=== PATIENT | male | born 1945 | race Caucasian/White ===

== ENCOUNTER 2020-08-30 08:16 | Outpatient (REF) | payer MEDICARE, SELFPAY ==
[2020-08-30 09:15] LABS: Basophils Percent Auto 0.2 % (0-2); Imm Gran Abs Auto 0.03 X10*3/uL (0.00-0.03); Imm Gran Pct Auto 0.5 % (0.0-0.4); MANUAL DIFF FLAG SCAN; Mean Corpuscular Volume 93.5 fL (80-98); Neutrophils Absolute Auto 3.7 X10*3/uL (2.0-8.3); PLT CLUMP 1; SCAN SMEAR FLAG 1
[2020-08-30 09:16] LABS: Eosinophils Absolute Auto 0.1 X10*3/uL (0.0-0.4); Eosinophils Percent Auto 2.3 % (0-4); Hematocrit 37.4 % (42-52); Hemoglobin 12.2 g/dl (14.0-18.0); Lymphocytes Absolute Auto 1.2 X10*3/uL (1.2-4.9); Mean Corpuscular HGB Conc 32.6 g/dl (31.0-36.0); Mean Corpuscular Hemoglobin 30.5 pg (27.0-33.0); Mean Platelet Volume 9.6 fL (9.4-12.4); Monocytes Absolute Auto 0.5 X10*3/uL (0.1-1.2); Monocytes Percent Auto 8.7 % (2-11); Neutrophils Percent Auto 66.3 % (45-73); Platelet Count 133 X10*3/uL (160-400); Red Cell Distribution Width 12.8 % (11.0-16.0); White Blood Count 5.6 X10*3/uL (4.8-10.8)
[2020-08-30 09:17] LABS: Estimated Average Glucose 126 mg/dL
[2020-08-30 09:27] LABS: Alanine Aminotransferase 60 U/L (0-40); Albumin Level 4.1 g/dL (3.5-5.0); Alkaline Phosphatase 205 U/L (39-117); Anion Gap 16 (12-20); Aspartate Amino Transferase 37 U/L (5-37); Bilirubin Total 0.6 mg/dL (0.0-1.0); Blood Urea Nitrogen 14 mg/dL (9-16); Calcium 9.3 mg/dL (8.4-10.2); Carbon Dioxide 22 mmol/L (22-29); Chloride 105 mmol/L (96-108); Cholesterol 125 mg/dL; Estimated Glomerular Filt Rate > 60; Glucose Fasting 209 mg/dL (60-99); HDL Cholesterol 31 mg/dL; LDL Cholesterol Calculated 61 mg/dl; Potassium 4.5 mmol/L (3.3-5.1); Sodium 138 mmol/L (135-145); Total Protein 7.1 g/dL (6.5-8.0); Triglycerides 166 mg/dL
[2020-08-30 09:48] LABS: Thyroid Stimulating Hormone 2.02 uIU/mL (0.32-4.0)
[2020-08-30 10:36] LABS: Creatinine Urine 120.12 mg/dL; Microalbum/Creatinine Ratio Ur 103.2 ug/mg cr
== END 2020-08-30 08:17 | disposition home or self-care (01) ==
LOC: HO.LAB 08:16
PROVIDERS: PCP Internal Medicine; Visit Provider Internal Medicine
DX: Z00.00 Encounter for general adult medical examination without abnormal findings (principal); E11.9 Type 2 diabetes mellitus without complications; E03.9 Hypothyroidism, unspecified
CPT/HCPCS: 36415; 80053; 80061; 82043; 83036; 84443; 85025

== ENCOUNTER 2020-10-26 07:42 | Outpatient (REF) | payer MEDICARE, SELFPAY ==
--- NOTE | ~2020-10-26 | XR_ITS ---
EXAMINATION: XR KNEES, STANDING AP XR KNEE, RIGHT XR KNEE, LEFT CLINICAL INFORMATION: Bilateral knee pain COMPARISON: Radiographs bilateral knees including standing AP knee 01/24/2017. TECHNIQUE: Standing AP view of both knees is performed. The right knee is imaged in lateral and axial patella views. The left knee is imaged in lateral view. FINDINGS: Right: There is no fracture, dislocation, destructive process. Tricompartment osteoarthritis is present, greatest medial knee joint compartment with joint narrowing, osteophytes, and secondary genu varus. There is borderline suprapatellar fluid. No significant effusion. There is no erosive change or chondrocalcinosis. Hoffa's fat pad appears normal. There is spurring at the quadriceps insertion patella. Extensive vascular atherosclerotic calcifications are present. Left: There has been prior total knee arthroplasty. The hardware appears intact. There is no fracture, dislocation, or destructive process. There is moderate suprapatellar effusion. Hoffa's fat pad appears normal. Spurring is present at the quadriceps insertion patella. There are extensive vascular atherosclerotic calcifications. 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 No erosive change. Left: Total knee arthroplasty. Hardware intact. Moderate effusion. No destructive process. Bilateral: Spurring at quadriceps insertion on the lateral patella. Bilateral atherosclerotic calcifications vasculature.
--- NOTE | ~2020-10-26 | XR_ITS ---
EXAMINATION: XR KNEES, STANDING AP XR KNEE, RIGHT XR KNEE, LEFT CLINICAL INFORMATION: Bilateral knee pain COMPARISON: Radiographs bilateral knees including standing AP knee 01/24/2017. TECHNIQUE: Standing AP view of both knees is performed. The right knee is imaged in lateral and axial patella views. The left knee is imaged in lateral view. FINDINGS: Right: There is no fracture, dislocation, destructive process. Tricompartment osteoarthritis is present, greatest medial knee joint compartment with joint narrowing, osteophytes, and secondary genu varus. There is borderline suprapatellar fluid. No significant effusion. There is no erosive change or chondrocalcinosis. Hoffa's fat pad appears normal. There is spurring at the quadriceps insertion patella. Extensive vascular atherosclerotic calcifications are present. Left: There has been prior total knee arthroplasty. The hardware appears intact. There is no fracture, dislocation, or destructive process. There is moderate suprapatellar effusion. Hoffa's fat pad appears normal. Spurring is present at the quadriceps insertion patella. There are extensive vascular atherosclerotic calcifications. 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 No erosive change. Left: Total knee arthroplasty. Hardware intact. Moderate effusion. No destructive process. Bilateral: Spurring at quadriceps insertion on the lateral patella. Bilateral atherosclerotic calcifications vasculature.
--- NOTE | ~2020-10-26 | XR_ITS ---
EXAMINATION: XR KNEES, STANDING AP XR KNEE, RIGHT XR KNEE, LEFT CLINICAL INFORMATION: Bilateral knee pain COMPARISON: Radiographs bilateral knees including standing AP knee 01/24/2017. TECHNIQUE: Standing AP view of both knees is performed. The right knee is imaged in lateral and axial patella views. The left knee is imaged in lateral view. FINDINGS: Right: There is no fracture, dislocation, destructive process. Tricompartment osteoarthritis is present, greatest medial knee joint compartment with joint narrowing, osteophytes, and secondary genu varus. There is borderline suprapatellar fluid. No significant effusion. There is no erosive change or chondrocalcinosis. Hoffa's fat pad appears normal. There is spurring at the quadriceps insertion patella. Extensive vascular atherosclerotic calcifications are present. Left: There has been prior total knee arthroplasty. The hardware appears intact. There is no fracture, dislocation, or destructive process. There is moderate suprapatellar effusion. Hoffa's fat pad appears normal. Spurring is present at the quadriceps insertion patella. There are extensive vascular atherosclerotic calcifications. 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 No erosive change. Left: Total knee arthroplasty. Hardware intact. Moderate effusion. No destructive process. Bilateral: Spurring at quadriceps insertion on the lateral patella. Bilateral atherosclerotic calcifications vasculature.
== END 2020-10-26 07:43 | disposition home or self-care (01) ==
LOC: HO.HOSX 07:42
PROVIDERS: Visit Provider Orthopaedic Surgery
DX: M25.562 Pain in left knee (principal); M25.561 Pain in right knee; M17.11 Unilateral primary osteoarthritis, right knee; E11.9 Type 2 diabetes mellitus without complications; C25.9 Malignant neoplasm of pancreas, unspecified; Z88.1 Allergy status to other antibiotic agents; Z96.652 Presence of left artificial knee joint
CPT/HCPCS: 20610; 73560; 73565; 99202; J1040

== ENCOUNTER 2021-11-12 11:56 | Inpatient (IN) | payer MEDICARE, SELFPAY ==
[2021-11-12] VITALS (10 sets, daily range): BP systolic 70–93; BP diastolic 40–55; PULSE 68–92; RESP 18–23; TEMP 36.3; O2SAT 95–100; BMI 16.5
--- NOTE | ~2021-11-12 | XR_ITS ---
EXAMINATION: XR CHEST CLINICAL INFORMATION: Shortness of breath COMPARISON: Previous chest x-rays from earlier the same day TECHNIQUE: Frontal view of the chest was obtained. FINDINGS: The cardiac and mediastinal contours are stable. The lungs are clear. There is no pleural effusion or pneumothorax. There is a right jugular port with tip projecting over the SVC. There are degenerative changes of the spine. XR/XR chest 1V IMPRESSION: No evidence for acute disease in the chest.
--- NOTE | ~2021-11-12 | XR_ITS ---
EXAMINATION: XR CHEST CLINICAL INFORMATION: Weakness and hypotension COMPARISON: None TECHNIQUE: Frontal view of the chest was obtained. FINDINGS: The cardiac and mediastinal contours are normal. The lungs are clear. There is slight blunting of the left lateral costophrenic angle questionable for tiny left pleural effusion or pleural thickening. There is no right pleural effusion. There is no pneumothorax. There is a right jugular port with tip projecting over the SVC. There are degenerative changes of the spine. XR/XR chest 1V IMPRESSION: Blunting of the left lateral costophrenic angle questionable for tiny left pleural effusion or pleural thickening
--- NOTE | ~2021-11-12 | CT_ITS ---
EXAMINATION: CT ABDOMEN AND PELVIS WITH CONTRAST CLINICAL INFORMATION: Question of cholecystitis or choledocholithiasis COMPARISON: MR abdomen 11/10/2019 TECHNIQUE: Multidetector volumetric images were obtained from the superior aspect of the liver through the pubic symphysis following administration 85 mL of Omnipaque 350 intravenous contrast. Sagittal and coronal reformatted images were obtained on the technologist's workstation. Oral contrast: No This CT examination was performed using dose optimization techniques as appropriate, variously including the following: *Automated exposure control *Adjustment of mA and/or kV according to patient size (this includes techniques or standardized protocols for targeted exams where dose is matched to indication/reason for exam; i.e. extremities or head) *Use of iterative reconstruction technique DLP: 475 mGy-cm FINDINGS: LUNG BASES: Small left pleural effusion. Patchy foci of groundglass in the right lung base. ABDOMINAL AND PELVIC WALL: Unremarkable. LIVER AND BILIARY TREE: Severe intrahepatic biliary duct dilatation which appears similar to prior. Common bile duct stent is in place however pneumobilia is not definitively appreciated. Foci of peripheral gas are seen favored to reflect portal venous gas. GALLBLADDER: Status post cholecystectomy. PANCREAS: Amorphous soft tissue is noted in the pancreatic head incompletely characterized on this single phase, contiguous with the lesser curvature of the stomach, which could reflect a primary pancreatic malignancy, measuring at least 4.9 x 4.7 cm in span. Residual pancreatic tail is atrophic. SPLEEN: Multiple wedge-shaped hypodensities compatible with splenic infarcts. ADRENAL GLANDS: Unremarkable. KIDNEYS AND URETERS: Fluid attenuation Bosniak 1 left renal cyst, no imaging follow-up recommended. Bilateral nonobstructing renal stones measuring up to 2 mm. GASTROINTESTINAL TRACT: Fluid is noted in the distal esophagus recommend correlation with symptoms of reflux. Stomach significantly distended, consider correlation with any systemic gastric outlet obstruction particularly given the pancreatic mass. Large colonic stool burden. There is marked pancolonic wall thickening with areas of hypoenhancing bowel in the sigmoid, 3:63, transverse colon, 3:50 raising suspicion for bowel ischemia. Multiple thick-walled loops of small bowel are also seen. VASCULAR: Gastric and periesophageal varices. Advanced atherosclerosis of the abdominal aorta. 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 Severe stenosis of the origin of the inferior mesenteric artery which also appears patent. LYMPH NODES/PERITONEUM: No lymphadenopathy. FREE FLUID: Large volume ascites. Right lower quadrant approach surgical drain. BLADDER: Unremarkable. PELVIC VISCERA: Prostate is enlarged and protrudes into the base of the bladder. OSSEOUS STRUCTURES: Multiple wedge-shaped hypodensities in the spleen suggestive of splenic infarcts, new from prior. CT/CT abdomen pelvis w con IMPRESSION: Gas is noted within the liver favored to reflect portal venous gas. There is pancolonic wall thickening and multiple loops of thickened small bowel with at least 2 areas of hypoenhancing large bowel involving the transverse and sigmoid colon raising suspicious for ischemic bowel. Given there appears to be occlusion of the superior mesenteric vein, with multiple dilated collateral vessels, venous ischemia should be considered. There is severe stenosis of the origin of the superior mesenteric artery and inferior mesenteric artery however appear patent distally. Large volume ascites. Amorphous soft tissue is noted in the pancreatic head incompletely characterized on this single phase, contiguous with the lesser curvature of the stomach, which could reflect a primary pancreatic malignancy, measuring at least 4.9 cm. Severe intrahepatic biliary duct dilatation which appears similar to prior. Common bile duct stent is in place however pneumobilia is not definitively appreciated. Multiple wedge-shaped hypodensities compatible with splenic infarcts. Stomach significantly distended, consider correlation with any systemic gastric outlet obstruction particularly given the pancreatic mass is contiguous with the stomach. 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 Small left pleural effusion. Patchy foci of groundglass in the right lung base adjusting aspiration or infection. The critical results were discussed with Ramírez Farr NP by telephone at 11/12/2021 11:12 PM and it was ascertained that the content and urgency of the report was understood at the time of direct communication.
--- NOTE | 2021-11-12 12:14 | ECG_ITS ---
Test Reason : WEAKNESS Blood Pressure : / mmHG Vent. Rate : 073 BPM Atrial Rate : 073 BPM P-R Int : 170 ms QRS Dur : 086 ms QT Int : 392 ms P-R-T Axes : 083 010 070 degrees QTc Int : 431 ms Normal sinus rhythm Low voltage QRS Cannot rule out Anterior infarct , age undetermined Abnormal ECG No previous ECGs available Referred By: Nora Templeton Electronically Signed By:NIKKO TOMAS
--- NOTE | 2021-11-12 12:29 | ED_ITS ---
HPI - Weakness General Chief complaint: Weakness <Nora TempletonKONRAD - Last Filed: 11/12/21 20:13> Stated complaint: weakness/hypotensive <Nora TempletonKONRAD - Last Filed: 11/12/21 20:13> Time Seen by Provider: 11/12/21 12:13 <Nora TempletonKONRAD - Last Filed: 11/12/21 20:13> Source: patient and family <Nora TempletonKONRAD - Last Filed: 11/12/21 20:13> Mode of arrival: EMS <Nora TempletonKONRAD - Last Filed: 11/12/21 20:13> Limitations: no limitations <Nora TempletonKONRAD - Last Filed: 11/12/21 20:13> History of Present Illness HPI Narrative: Patient presents emergency department for evaluation of weakness, fatigue, and shortness of breath. He reports over the past week he is become progressively more weak. Has had no appetite over the past 3 days, is not eating. He states 1 week ago he was diagnosed with COVID-19, 6 days ago he received a ?COVID infusion from [facility]. States he has been vaccinated and boosted for COVID-19 with [employer]. His daughter Anika Perez is at bedside she reports that she has a healthcare proxy, the patient lives with his son, her brother. She states that he has pancreatic and liver cancer, he was previously receiving chemo/radiation but she pain very frail in sick by her report. States he is currently not receiving any chemo or radiation therapy. S he states that a visiting nurse comes to the house every other day to drain fluid from the abdomen via the drainage port that is in place. <Nora OdenKONRAD hurtado - Last Filed: 11/12/21 20:13> Related Data Home medications: Home Medications Medication Instructions Recorded Confirmed amlodipine 10 mg tablet 10 mg PO DAILY 11/12/21 apixaban 5 mg tablet (Eliquis) 1 tab PO BID 11/12/21 11/12/21 furosemide 40 mg tablet 1 tab PO DAILY 11/12/21 metoprolol succinate 50 mg 1 tab PO DAILY 11/12/21 tablet,extended release 24 hr spironolactone 50 mg tablet 1 tab PO DAILY 11/12/21 11/12/21 Previous Rx's Medication Instructions Recorded metformin 500 mg tablet 500 mg PO BID diabetes #180 tabs 09/22/21 <Nora Templeton CNP - Last Filed: 11/12/21 20:13> Allergies/Adverse reactions: Allergies Allergy/AdvReac Type Severity Reaction Status Date / Time amoxicillin [From AUGMENTIN] Allergy Severe UNKNOWN Verified 09/01/20 11:47 clavulanic acid Allergy Severe UNKNOWN Verified 09/01/20 11:47 [From AUGMENTIN] <Nora Templeton CNP - Last Filed: 11/12/21 20:13> Review of Systems Review of Systems: Constitutional: Positive weight loss. No fever. No chills. Positive weakness. Positive fatigue. Eye: No swelling. No redness. ENT: No sore throat. No rhinorrhea. No nasal congestion. No sore throat. No difficulty swallowing. Skin: No rash. No itching. Cardiovascular: No chest pain. No chest pressure. No palpitations. No pedal edema. Respiratory: Positive shortness of breath. Positive cough. No sputum production. Gastrointestinal: Positive anorexia. No nausea. No vomiting. No diarrhea. No abdominal pain. No blood in stool. Genitourinary: No burning micturition. No urinary frequency. No incontinence. Neurologic: No headache. No dizziness. No pre-syncope/ syncope. No unilateral weakness. No ataxia. No numbness. No tingling. No change in bowel or bladder control. Musculoskeletal: No muscle pain. Positive back pain. No joint pain. No stiffness. Hematologic: No bleeding. No bruising. Lymphatics: No enlarged lymph nodes. Psychiatric:No depression. No anxiety. Endocrine: No polyuria. No polydipsia. <Nora Templeton CNP - Last Filed: 11/12/21 20:13> Yes all other systems are reviewed and are negative <Nora Templeton CNP - Last Filed: 11/12/21 20:13> [facility] Past Medical History Attestation statement: The following information was validated with the patient. <Nora Templeton CNP - Last Filed: 11/12/21 20:13> Source: old records reviewed <Nora Templeton CNP - Last Filed: 11/12/21 20:13> Medical History: Medical History Diabetes Pancreatic cancer <Nora Templeton CNP - Last Filed: 11/12/21 20:13> Surgical History: Surgical History History of left knee replacement <Nora Templeton CNP - Last Filed: 11/12/21 20:13> Family History Family History: Family History Mother No problems noted. <Nora Templeton CNP - Last Filed: 11/12/21 20:13> Social History Social History: Social History Alcohol intake: never Advance Directives: No Advance Directives Information Provided: No <Nora Templeton CNP - Last Filed: 11/12/21 20:13> Physical Exam Vital Signs: Vital Signs: Last Vital Signs Temp 97.4 F 11/12/21 12:03 Pulse 69 11/12/21 18:22 Resp 19 11/12/21 18:22 BP 79/50 L 11/12/21 18:22 Pulse Ox 100 11/12/21 18:22 O2 Del Method 11/12/21 18:22 BMI result Body Mass Index 16.5 Vital signs have been reviewed as normal and appeared to be correct. Hypotensive. Heart rate normal.? Respiration rate normal. Temperature normal.? Oxygen saturation normal. <Nora Templeton CNP - Last Filed: 11/12/21 20:13> Vital Signs: Last Vital Signs Temp 97.4 F 11/12/21 12:03 Pulse 69 11/12/21 18:22 Resp 19 11/12/21 18:22 BP 79/50 L 11/12/21 18:22 Pulse Ox 100 11/12/21 18:22 O2 Del Method 11/12/21 18:22 BMI result Body Mass Index 16.5 <Terry Burt MD - Last Filed: 11/12/21 16:26> Appearance: Alert.?Oriented to person, place and time. Patient is frail and cachectic?Normal affect. Eyes: Pupils equal, round and reactive to light.?EOMi. Scleral icterus ENT: Pharynx normal.?? Neck: Normal inspection.? Neck supple.?? CVS: Heart sounds normal. Normal heart rate and rhythm.? Pulses normal.?? Respiratory: No respiratory distress.? Lung sounds clear to auscultation raad aterally in lower lobes, with rhonchi to the left upper lobe.?? Abdomen: Soft and non-tender. Normoactive bowel sounds. No pulsatile mass.?Right abdomen with percutaneous drain in place. Skin: Skin warm and dry.? Jaundice? Normal skin turgor.?? Extremities: No lower extremity edema.? No calf ttp? Neuro: Moves all extremities spontaneously. Sensation intact bilaterally. CN II- XII intact. No focal neuro deficits. No asterixis <Nora Templeton CNP - Last Filed: 11/12/21 20:13> Course Course Course Narrative: Patient is a 68-year-old male with reported past medical history of diabetes, pancreatic cancer, status post unsuccessful Whipple, portal vein thrombosis, presenting for evaluation weakness and decreased appetite over the past 3 days in addition shortness of breath. He presents via EMS with hypotension 70/40, he is alert and oriented and mentating appropriately, he is very frail and cachectic. No tachycardia fever hypoxia or tachypnea. Patient with recent COVID-19 infection. Will obtain CBC to evaluate for leukocytosis/ anemia, CMP and lipase to evaluate for abnormal electrolytes /abnormal renal function/ abnormal hepatic/biliary function, EKG and troponin to evaluate for ischemia/ACS. Chest x-ray to evaluate for consolidation/ infiltrate/ mass/ pulmonary congestion. Urinalysis to evaluate for infection. Blood cultures and lactic acid given hypotension, patient to receive fluid bolus NS 30ml/kg. Upon speaking with patient and his daughter it seems as though he is receiving care both at [facility] and [facility], will attempt to obtain records from both. Patient confirms that he is a full code. <Nora Templeton CNP - Last Filed: 11/12/21 20:13> Reevaluation(s) Reevaluation #1: Hypotension responding to saline bolus. Current pressure 93/49. Continues to be mentating appropriately. CBC reveals no leukocytosis, normocytic anemia consistent with baseline labs. Hyponatremia sodium 127, hyperkalemia potassium 5.8, POC glucose 51, patient to receive sodium bicarb 50 mEq IV, D50 25 g IV, calcium gluconate 2 g IV, albuterol 10 mg nebulizer, PATRICK with BUN 72 creatinine 2.54, elevated transaminases and alk phos higher than baseline elevations when compared with 2020 labs. Lactic acid is elevated at 5.2, has already received sepsis fluid bolus, at this time do not suspect a bacterial infection, symptoms consistent with viral COVID-19 infection. Troponin is elevated 438.5, EKG reveals normal sinus rhythm, without acute ischemic changes, consulted cardiology Dr. Hays who advises to treat underlying issues, repeat troponin in a few hours. records reveal insertion of abdominal Aspira catheter for ascites, placed September 2021 <Nora Templeton CNP - Last Filed: 11/12/21 20:13> Time: 13:16 <Nora Templeton CNP - Last Filed: 11/12/21 20:13> Reevaluation #2: Fluid bolus completed at this time, return of hypotension 81/48, ordered additional 1 L normal saline. Discussed this case with ED attending Dr. Christianson who agrees with current plan of care. <Noraisabel Templeton CNP - Last Filed: 11/12/21 20:13> Time: 13:36 <Nora Templeton CNP - Last Filed: 11/12/21 20:13> Reevaluation #3: POC glucose 55, will order additional D50 25 g. <Noraisabel Templeton CNP - Last Filed: 11/12/21 20:13> Time: 14:21 <Nora Templeton CNP - Last Filed: 11/12/21 20:13> Additional Reevaluation(s): 1445: Current blood pressure 91/50 with map 65. Fluid bolus completed at this time. Dexamethasone 10 mg IV push and for coverage of potential adrenal insufficiency given some labs, glycemia, hypotension. Additional trial midodrine 10 mg p.o., as advised by ED attending Dr. Christianson. Straight cath for urinalysis. obtained sample of peritoneal fluids for cell count, glucose, LDH, total protein. 1533: Consulted with bindery machine feeder offbearer, Dr. Tapia, patient received D5 half-normal s bridget infusion, albumin 25 g, will re-evaluate hypoglycemia and hypertension. 1632: Urinalysis without sign of infection or hematuria. 1645: Peritoneal fluid consistent with bacterial peritonitis, patient has allergy to Augmentin which causes nausea, patient to receive Rocephin 2g IV. 1710: Current blood pressure 85/45, MAP 63. Lactic acid with some improvement 4.8, troponin has decreased 326.6. Electrolytes normalizing, renal function improving. Given blood pressure is borderline, spoke with bindery machine feeder offbearer Dr. Tapia, who agrees to admit patient to intensive care unit. <Nora Templeton CNP - Last Filed: 11/12/21 20:13> Consultations Consultation #1: I have seen and evaluated the patient at the bedside this is 76 years old male history of diabetes, pancreatic cancer, status post unsuccessful Whipple, portal vein thrombosis, presenting for evaluation weakness and decreased appetite, patient appears very cachectic, patient recent past medical history records at [facility] (record was requested not available yet), patient came in with decreased p.o. intake for the past 3 days, patient overall do not feel well, labs are consistent with possible renal insufficiency with hyponatremia, hypokalemia, acute renal failure, patient is hypotensive, hypoglycemic. Patient tested positive for COVID 19 infection but no acute bacterial infection was found, still awaiting for urine sample and ascites fluid analyses. 1. A dose of dexamethasone IV for possible adrenal insufficiency. 2. IV fluids and gentle hydration for acute renal failure. 3. Monitoring of hypotension with IV fluid hydration and midodrine. 4. Cardiology recommendation is appreciated obtain serial troponin values. 5. As of now there is no evidence of septic shock with source of infection. 6. COVID infection. 7. Case discussed with Dr. Tapia for potential ICU admission we will monitor blood pressure and blood sugar while in the ED. <Terry Burt MD - Last Filed: 11/12/21 16:26> Time: 14:55 <Terry Burt MD - Last Filed: 11/12/21 16:26> MDM - [facility] Medical Records Attestation: I reviewed the patient's medical records. <Nora Templeton CNP - Last Filed: 11/12/21 20:13> Lab Data Attestation: I reviewed the patient's lab results. <Nora Templeton CNP - Last Filed: 11/12/21 20:13> Result diagrams: : 11/12/21 12:43 11/12/21 16:37 <Nora Templeton CNP - Last Filed: 11/12/21 20:13> Labs: Lab Results 11/12/21 11/12/21 11/12/21 Range/Units 12:43 12:43 12:43 WBC 9.7 (4.8-10.8) X10*3/uL RBC 4.61 (4.60-5.80) X10*6/uL Hgb 12.5 L (14.0-18.0) g/dl Hct 37.7 L (42.0-52.0) % MCV 81.8 (80.0-98.0) fL MCH 27.1 (27.0-33.0) pg MCHC 33.2 (31.0-36.0) g/dl RDW 23.8 H (11.0-16.0) % Plt Count 150 L (160-400) X10*3/uL MPV 10.8 (9.4-12.4) fL Immature Gran % (Auto) 2.6 H (0.0-0.4) % Neut % (Auto) 92.8 H (45-73) % Lymph % (Auto) 1.6 L (20-40) % [place] % (Auto) 2.8 (2-11) % Eos % (Auto) 0.1 (0-4) % Baso % (Auto) 0.1 (0-2) % Lymph # (Auto) 0.2 L (1.2-4.9) X10*3/uL [place] # (Auto) 0.3 (0.1-1.2) X10*3/uL Eos # (Auto) 0.0 (0.0-0.4) X10*3/uL Baso # (Auto) 0.0 (0.0-0.2) X10*3/uL Abs Immat Gran (auto) 0.25 H (0.00-0.03) X10*3/uL Absolute Neuts (auto) 9.0 H (2.0-8.3) x10*3/uL Absolute Nucleated RBC 0.000 (0.0-0.012) X10*3/uL Nucleated RBC % (auto) 0.0 (0.0-0.2) /100WBC Smear Tech's Comments VERIFIED Sodium 127 L (135-145) mmol/L Potassium 5.8 H D (3.3-5.1) mmol/L Chloride 97 (96-108) mmol/L Carbon Dioxide 13 L (22-29) mmol/L Anion Gap 23 H (12-20) BUN 72 H (9-16) mg/dL Creatinine 2.54 H (0.5-1.4) mg/dL Estim Creat Clear Calc 16.6 Estimated GFR 25 POC Glucose (60-115) mg/dL Random Glucose 84 (60-115) mg/dL Lactic Acid (0.5-2.0) mmol/L Lactic Acid F/U @ 2Hr (0.5-2.0) mmol/L Calcium 8.5 D (8.4-10.2) mg/dL Magnesium 2.6 (1.6-2.6) mg/dL Total Bilirubin 10.8 H (0.0-1.0) mg/dL AST 203 H (5-37) U/L ALT 113 H (0-40) U/L Alkaline Phosphatase 2125 H D (39-117) U/L Troponin I High Sens 438.5 H* (<3.5-35.0) ng/L B-Natriuretic Peptide (<100) pg/mL Total Protein 6.0 L (6.5-8.0) g/dL Albumin 2.6 L D (3.5-5.0) g/dL Lipase < 4 L (8-78) U/L Urine Color Urine Appearance Urine pH (5.0-8.0) Ur Specific [place] (1.005-1.025) Urine Protein (NEG-TRACE) MG/DL Urine Glucose (UA) (NEG) MG/DL Urine Ketones (NEG) MG/DL Urine Blood (NEG) Urine Nitrite (NEG) Ur Leukocyte Esterase (NEG) Urine RBC (0) /HPF Urine WBC (0-4) /HPF Ur Squamous Epith Cells /LPF Amorphous Sediment /LPF Urine Bacteria /LPF Hyaline Casts /LPF Granular Casts /LPF Urine Mucus /LPF Peritoneal WBC X10*3/uL Peritoneal RBC X10*6/uL Periton Neutrophils % Periton Lymphocytes % Peritoneal Monocytes % Peritoneal Other Cells % Peritoneal Tot Protein GM/DL Peritoneal LDH U/L Peritoneal Glucose MG/DL COVID-19 (JEFF) (Negative) COVID-19 Clin Com 11/12/21 11/12/21 11/12/21 Range/Units 12:43 12:46 13:18 WBC (4.8-10.8) X10*3/uL RBC (4.60-5.80) X10*6/uL Hgb (14.0-18.0) g/dl Hct (42.0-52.0) % MCV (80.0-98.0) fL MCH (27.0-33.0) pg MCHC (31.0-36.0) g/dl RDW (11.0-16.0) % Plt Count (160-400) X10*3/uL MPV (9.4-12.4) fL Immature Gran % (Auto) (0.0-0.4) % Neut % (Auto) (45-73) % Lymph % (Auto) (20-40) % [place] % (Auto) (2-11) % Eos % (Auto) (0-4) % Baso % (Auto) (0-2) % Lymph # (Auto) (1.2-4.9) X10*3/uL [place] # (Auto) (0.1-1.2) X10*3/uL Eos # (Auto) (0.0-0.4) X10*3/uL Baso # (Auto) (0.0-0.2) X10*3/uL Abs Immat Gran (auto) (0.00-0.03) X10*3/uL Absolute Neuts (auto) (2.0-8.3) x10*3/uL Absolute Nucleated RBC (0.0-0.012) X10*3/uL Nucleated RBC % (auto) (0.0-0.2) /100WBC Smear Tech's Comments Sodium (135-145) mmol/L Potassium (3.3-5.1) mmol/L Chloride (96-108) mmol/L Carbon Dioxide (22-29) mmol/L Anion Gap (12-20) BUN (9-16) mg/dL Creatinine (0.5-1.4) mg/dL Estim Creat Clear Calc Estimated GFR POC Glucose 51 L* (60-115) mg/dL Random Glucose (60-115) mg/dL Lactic Acid 5.2 H* (0.5-2.0) mmol/L Lactic Acid F/U @ 2Hr (0.5-2.0) mmol/L Calcium (8.4-10.2) mg/dL Magnesium (1.6-2.6) mg/dL Total Bilirubin (0.0-1.0) mg/dL AST (5-37) U/L ALT (0-40) U/L Alkaline Phosphatase (39-117) U/L Troponin I High Sens (<3.5-35.0) ng/L B-Natriuretic Peptide (<100) pg/mL Total Protein (6.5-8.0) g/dL Albumin (3.5-5.0) g/dL Lipase (8-78) U/L Urine Color Urine Appearance Urine pH (5.0-8.0) Ur Specific [place] (1.005-1.025) Urine Protein (NEG-TRACE) MG/DL Urine Glucose (UA) (NEG) MG/DL Urine Ketones (NEG) MG/DL Urine Blood (NEG) Urine Nitrite (NEG) Ur Leukocyte Esterase (NEG) Urine RBC (0) /HPF Urine WBC (0-4) /HPF Ur Squamous Epith Cells /LPF Amorphous Sediment /LPF Urine Bacteria /LPF Hyaline Casts /LPF Granular Casts /LPF Urine Mucus /LPF Peritoneal WBC X10*3/uL Peritoneal RBC X10*6/uL Periton Neutrophils % Periton Lymphocytes % Peritoneal Monocytes % Peritoneal Other Cells % Peritoneal Tot Protein GM/DL Peritoneal LDH U/L Peritoneal Glucose MG/DL COVID-19 (JEFF) Positive A (Negative) COVID-19 Clin Com See Note 11/12/21 11/12/21 11/12/21 Range/Units 14:19 15:48 15:49 WBC (4.8-10.8) X10*3/uL RBC (4.60-5.80) X10*6/uL Hgb (14.0-18.0) g/dl Hct (42.0-52.0) % MCV (80.0-98.0) fL MCH (27.0-33.0) pg MCHC (31.0-36.0) g/dl RDW (11.0-16.0) % Plt Count (160-400) X10*3/uL MPV (9.4-12.4) fL Immature Gran % (Auto) (0.0-0.4) % Neut % (Auto) (45-73) % Lymph % (Auto) (20-40) % [place] % (Auto) (2-11) % Eos % (Auto) (0-4) % Baso % (Auto) (0-2) % Lymph # (Auto) (1.2-4.9) X10*3/uL [place] # (Auto) (0.1-1.2) X10*3/uL Eos # (Auto) (0.0-0.4) X10*3/uL Baso # (Auto) (0.0-0.2) X10*3/uL Abs Immat Gran (auto) (0.00-0.03) X10*3/uL Absolute Neuts (auto) (2.0-8.3) x10*3/uL Absolute Nucleated RBC (0.0-0.012) X10*3/uL Nucleated RBC % (auto) (0.0-0.2) /100WBC Smear Tech's Comments Sodium (135-145) mmol/L Potassium (3.3-5.1) mmol/L Chloride (96-108) mmol/L Carbon Dioxide (22-29) mmol/L Anion Gap (12-20) BUN (9-16) mg/dL Creatinine (0.5-1.4) mg/dL Estim Creat Clear Calc Estimated GFR POC Glucose 55 L* (60-115) mg/dL Random Glucose (60-115) mg/dL Lactic Acid (0.5-2.0) mmol/L Lactic Acid F/U @ 2Hr (0.5-2.0) mmol/L Calcium (8.4-10.2) mg/dL Magnesium (1.6-2.6) mg/dL Total Bilirubin (0.0-1.0) mg/dL AST (5-37) U/L ALT (0-40) U/L Alkaline Phosphatase (39-117) U/L Troponin I High Sens (<3.5-35.0) ng/L B-Natriuretic Peptide (<100) pg/mL Total Protein (6.5-8.0) g/dL Albumin (3.5-5.0) g/dL Lipase (8-78) U/L Urine Color Urine Appearance Urine pH (5.0-8.0) Ur Specific [place] (1.005-1.025) Urine Protein (NEG-TRACE) MG/DL Urine Glucose (UA) (NEG) MG/DL Urine Ketones (NEG) MG/DL Urine Blood (NEG) Urine Nitrite (NEG) Ur Leukocyte Esterase (NEG) Urine RBC (0) /HPF Urine WBC (0-4) /HPF Ur Squamous Epith Cells /LPF Amorphous Sediment /LPF Urine Bacteria /LPF Hyaline Casts /LPF Granular Casts /LPF Urine Mucus /LPF Peritoneal WBC 0.523 X10*3/uL Peritoneal RBC < 0.002 X10*6/uL Periton Neutrophils 36 % Periton Lymphocytes 47 % Peritoneal Monocytes 12 % Peritoneal Other Cells 5 % Peritoneal Tot Protein 1.2 GM/DL Peritoneal LDH 89 U/L Peritoneal Glucose 113 MG/DL COVID-19 (JEFF) (Negative) COVID-19 Clin Com 11/12/21 11/12/21 11/12/21 Range/Units 15:55 16:37 16:37 WBC (4.8-10.8) X10*3/uL RBC (4.60-5.80) X10*6/uL Hgb (14.0-18.0) g/dl Hct (42.0-52.0) % MCV (80.0-98.0) fL MCH (27.0-33.0) pg MCHC (31.0-36.0) g/dl RDW (11.0-16.0) % Plt Count (160-400) X10*3/uL MPV (9.4-12.4) fL Immature Gran % (Auto) (0.0-0.4) % Neut % (Auto) (45-73) % Lymph % (Auto) (20-40) % [place] % (Auto) (2-11) % Eos % (Auto) (0-4) % Baso % (Auto) (0-2) % Lymph # (Auto) (1.2-4.9) X10*3/uL [place] # (Auto) (0.1-1.2) X10*3/uL Eos # (Auto) (0.0-0.4) X10*3/uL Baso # (Auto) (0.0-0.2) X10*3/uL Abs Immat Gran (auto) (0.00-0.03) X10*3/uL Absolute Neuts (auto) (2.0-8.3) x10*3/uL Absolute Nucleated RBC (0.0-0.012) X10*3/uL Nucleated RBC % (auto) (0.0-0.2) /100WBC Smear Tech's Comments Sodium 132 L (135-145) mmol/L Potassium 4.4 D (3.3-5.1) mmol/L Chloride 103 (96-108) mmol/L Carbon Dioxide 14 L (22-29) mmol/L Anion Gap 19 (12-20) BUN 62 H (9-16) mg/dL Creatinine 2.12 H (0.5-1.4) mg/dL Estim Creat Clear Calc 19.9 Estimated GFR 30 POC Glucose (60-115) mg/dL Random Glucose 273 H D (60-115) mg/dL Lactic Acid (0.5-2.0) mmol/L Lactic Acid F/U @ 2Hr (0.5-2.0) mmol/L Calcium 7.9 L D (8.4-10.2) mg/dL Magnesium (1.6-2.6) mg/dL Total Bilirubin (0.0-1.0) mg/dL AST (5-37) U/L ALT (0-40) U/L Alkaline Phosphatase (39-117) U/L Troponin I High Sens 326.6 H* (<3.5-35.0) ng/L B-Natriuretic Peptide (<100) pg/mL Total Protein (6.5-8.0) g/dL Albumin (3.5-5.0) g/dL Lipase (8-78) U/L Urine Color DK YELLOW Urine Appearance CLEAR Urine pH 5.5 (5.0-8.0) Ur Specific [place] 1.020 (1.005-1.025) Urine Protein TRACE (NEG-TRACE) MG/DL Urine Glucose (UA) NEG (NEG) MG/DL Urine Ketones 5 (NEG) MG/DL Urine Blood TRACE (NEG) Urine Nitrite NEG (NEG) Ur Leukocyte Esterase NEG (NEG) Urine RBC 1-4 (0) /HPF Urine WBC 0-2 (0-4) /HPF Ur Squamous Epith Cells 1+ /LPF Amorphous Sediment 2+ /LPF Urine Bacteria TRACE /LPF Hyaline Casts 5-9 /LPF Granular Casts 1-4 /LPF Urine Mucus TRACE /LPF Peritoneal WBC X10*3/uL Peritoneal RBC X10*6/uL Periton Neutrophils % Periton Lymphocytes % Peritoneal Monocytes % Peritoneal Other Cells % Peritoneal Tot Protein GM/DL Peritoneal LDH U/L Peritoneal Glucose MG/DL COVID-19 (JEFF) (Negative) COVID-19 Clin Com 11/12/21 11/12/21 Range/Units 16:37 16:37 WBC (4.8-10.8) X10*3/uL RBC (4.60-5.80) X10*6/uL Hgb (14.0-18.0) g/dl Hct (42.0-52.0) % MCV (80.0-98.0) fL MCH (27.0-33.0) pg MCHC (31.0-36.0) g/dl RDW (11.0-16.0) % Plt Count (160-400) X10*3/uL MPV (9.4-12.4) fL Immature Gran % (Auto) (0.0-0.4) % Neut % (Auto) (45-73) % Lymph % (Auto) (20-40) % [place] % (Auto) (2-11) % Eos % (Auto) (0-4) % Baso % (Auto) (0-2) % Lymph # (Auto) (1.2-4.9) X10*3/uL [place] # (Auto) (0.1-1.2) X10*3/uL Eos # (Auto) (0.0-0.4) X10*3/uL Baso # (Auto) (0.0-0.2) X10*3/uL Abs Immat Gran (auto) (0.00-0.03) X10*3/uL Absolute Neuts (auto) (2.0-8.3) x10*3/uL Absolute Nucleated RBC (0.0-0.012) X10*3/uL Nucleated RBC % (auto) (0.0-0.2) /100WBC Smear Tech's Comments Sodium (135-145) mmol/L Potassium (3.3-5.1) mmol/L Chloride (96-108) mmol/L Carbon Dioxide (22-29) mmol/L Anion Gap (12-20) BUN (9-16) mg/dL Creatinine (0.5-1.4) mg/dL Estim Creat Clear Calc Estimated GFR POC Glucose (60-115) mg/dL Random Glucose (60-115) mg/dL Lactic Acid (0.5-2.0) mmol/L Lactic Acid F/U @ 2Hr 4.8 H* (0.5-2.0) mmol/L Calcium (8.4-10.2) mg/dL Magnesium (1.6-2.6) mg/dL Total Bilirubin (0.0-1.0) mg/dL AST (5-37) U/L ALT (0-40) U/L Alkaline Phosphatase (39-117) U/L Troponin I High Sens (<3.5-35.0) ng/L B-Natriuretic Peptide 732 H (<100) pg/mL Total Protein (6.5-8.0) g/dL Albumin (3.5-5.0) g/dL Lipase (8-78) U/L Urine Color Urine Appearance Urine pH (5.0-8.0) Ur Specific [place] (1.005-1.025) Urine Protein (NEG-TRACE) MG/DL Urine Glucose (UA) (NEG) MG/DL Urine Ketones (NEG) MG/DL Urine Blood (NEG) Urine Nitrite (NEG) Ur Leukocyte Esterase (NEG) Urine RBC (0) /HPF Urine WBC (0-4) /HPF Ur Squamous Epith Cells /LPF Amorphous Sediment /LPF Urine Bacteria /LPF Hyaline Casts /LPF Granular Casts /LPF Urine Mucus /LPF Peritoneal WBC X10*3/uL Peritoneal RBC X10*6/uL Periton Neutrophils % Periton Lymphocytes % Peritoneal Monocytes % Peritoneal Other Cells % Peritoneal Tot Protein GM/DL Peritoneal LDH U/L Peritoneal Glucose MG/DL COVID-19 (JEFF) (Negative) COVID-19 Clin Com <Nora Templeton, [employer] - Last Filed: 11/12/21 20:13> Lab Results 11/12/21 11/12/21 11/12/21 Range/Units 12:43 12:43 12:43 WBC 9.7 (4.8-10.8) X10*3/uL RBC 4.61 (4.60-5.80) X10*6/uL Hgb 12.5 L (14.0-18.0) g/dl Hct 37.7 L (42.0-52.0) % MCV 81.8 (80.0-98.0) fL MCH 27.1 (27.0-33.0) pg MCHC 33.2 (31.0-36.0) g/dl RDW 23.8 H (11.0-16.0) % Plt Count 150 L (160-400) X10*3/uL MPV 10.8 (9.4-12.4) fL Immature Gran % (Auto) 2.6 H (0.0-0.4) % Neut % (Auto) 92.8 H (45-73) % Lymph % (Auto) 1.6 L (20-40) % [place] % (Auto) 2.8 (2-11) % Eos % (Auto) 0.1 (0-4) % Baso % (Auto) 0.1 (0-2) % Lymph # (Auto) 0.2 L (1.2-4.9) X10*3/uL [place] # (Auto) 0.3 (0.1-1.2) X10*3/uL Eos # (Auto) 0.0 (0.0-0.4) X10*3/uL Baso # (Auto) 0.0 (0.0-0.2) X10*3/uL Abs Immat Gran (auto) 0.25 H (0.00-0.03) X10*3/uL Absolute Neuts (auto) 9.0 H (2.0-8.3) x10*3/uL Absolute Nucleated RBC 0.000 (0.0-0.012) X10*3/uL Nucleated RBC % (auto) 0.0 (0.0-0.2) /100WBC Smear Tech's Comments VERIFIED Sodium 127 L (135-145) mmol/L Potassium 5.8 H D (3.3-5.1) mmol/L Chloride 97 (96-108) mmol/L Carbon Dioxide 13 L (22-29) mmol/L Anion Gap 23 H (12-20) BUN 72 H (9-16) mg/dL Creatinine 2.54 H (0.5-1.4) mg/dL Estim Creat Clear Calc 16.6 Estimated GFR 25 POC Glucose (60-115) mg/dL Random Glucose 84 (60-115) mg/dL Lactic Acid (0.5-2.0) mmol/L Lactic Acid F/U @ 2Hr (0.5-2.0) mmol/L Calcium 8.5 D (8.4-10.2) mg/dL Magnesium 2.6 (1.6-2.6) mg/dL Total Bilirubin 10.8 H (0.0-1.0) mg/dL AST 203 H (5-37) U/L ALT 113 H (0-40) U/L Alkaline Phosphatase 2125 H D (39-117) U/L Troponin I High Sens 438.5 H* (<3.5-35.0) ng/L B-Natriuretic Peptide (<100) pg/mL Total Protein 6.0 L (6.5-8.0) g/dL Albumin 2.6 L D (3.5-5.0) g/dL Lipase < 4 L (8-78) U/L Urine Color Urine Appearance Urine pH (5.0-8.0) Ur Specific [place] (1.005-1.025) Urine Protein (NEG-TRACE) MG/DL Urine Glucose (UA) (NEG) MG/DL Urine Ketones (NEG) MG/DL Urine Blood (NEG) Urine Nitrite (NEG) Ur Leukocyte Esterase (NEG) Urine RBC (0) /HPF Urine WBC (0-4) /HPF Ur Squamous Epith Cells /LPF Amorphous Sediment /LPF Urine Bacteria /LPF Hyaline Casts /LPF Granular Casts /LPF Urine Mucus /LPF Peritoneal WBC X10*3/uL Peritoneal RBC X10*6/uL Periton Neutrophils % Periton Lymphocytes % Peritoneal Monocytes % Peritoneal Other Cells % Peritoneal Tot Protein GM/DL Peritoneal LDH U/L Peritoneal Glucose MG/DL COVID-19 (JEFF) (Negative) COVID-19 Clin Com 11/12/21 11/12/21 11/12/21 Range/Units 12:43 12:46 13:18 WBC (4.8-10.8) X10*3/uL RBC (4.60-5.80) X10*6/uL Hgb (14.0-18.0) g/dl Hct (42.0-52.0) % MCV (80.0-98.0) fL MCH (27.0-33.0) pg MCHC (31.0-36.0) g/dl RDW (11.0-16.0) % Plt Count (160-400) X10*3/uL MPV (9.4-12.4) fL Immature Gran % (Auto) (0.0-0.4) % Neut % (Auto) (45-73) % Lymph % (Auto) (20-40) % [place] % (Auto) (2-11) % Eos % (Auto) (0-4) % Baso % (Auto) (0-2) % Lymph # (Auto) (1.2-4.9) X10*3/uL [place] # (Auto) (0.1-1.2) X10*3/uL Eos # (Auto) (0.0-0.4) X10*3/uL Baso # (Auto) (0.0-0.2) X10*3/uL Abs Immat Gran (auto) (0.00-0.03) X10*3/uL Absolute Neuts (auto) (2.0-8.3) x10*3/uL Absolute Nucleated RBC (0.0-0.012) X10*3/uL Nucleated RBC % (auto) (0.0-0.2) /100WBC Smear Tech's Comments Sodium (135-145) mmol/L Potassium (3.3-5.1) mmol/L Chloride (96-108) mmol/L Carbon Dioxide (22-29) mmol/L Anion Gap (12-20) BUN (9-16) mg/dL Creatinine (0.5-1.4) mg/dL Estim Creat Clear Calc Estimated GFR POC Glucose 51 L* (60-115) mg/dL Random Glucose (60-115) mg/dL Lactic Acid 5.2 H* (0.5-2.0) mmol/L Lactic Acid F/U @ 2Hr (0.5-2.0) mmol/L Calcium (8.4-10.2) mg/dL Magnesium (1.6-2.6) mg/dL Total Bilirubin (0.0-1.0) mg/dL AST (5-37) U/L ALT (0-40) U/L Alkaline Phosphatase (39-117) U/L Troponin I High Sens (<3.5-35.0) ng/L B-Natriuretic Peptide (<100) pg/mL Total Protein (6.5-8.0) g/dL Albumin (3.5-5.0) g/dL Lipase (8-78) U/L Urine Color Urine Appearance Urine pH (5.0-8.0) Ur Specific [place] (1.005-1.025) Urine Protein (NEG-TRACE) MG/DL Urine Glucose (UA) (NEG) MG/DL Urine Ketones (NEG) MG/DL Urine Blood (NEG) Urine Nitrite (NEG) Ur Leukocyte Esterase (NEG) Urine RBC (0) /HPF Urine WBC (0-4) /HPF Ur Squamous Epith Cells /LPF Amorphous Sediment /LPF Urine Bacteria /LPF Hyaline Casts /LPF Granular Casts /LPF Urine Mucus /LPF Peritoneal WBC X10*3/uL Peritoneal RBC X10*6/uL Periton Neutrophils % Periton Lymphocytes % Peritoneal Monocytes % Peritoneal Other Cells % Peritoneal Tot Protein GM/DL Peritoneal LDH U/L Peritoneal Glucose MG/DL COVID-19 (JEFF) Positive A (Negative) COVID-19 Clin Com See Note 11/12/21 11/12/21 11/12/21 Range/Units 14:19 15:48 15:49 WBC (4.8-10.8) X10*3/uL RBC (4.60-5.80) X10*6/uL Hgb (14.0-18.0) g/dl Hct (42.0-52.0) % MCV (80.0-98.0) fL MCH (27.0-33.0) pg MCHC (31.0-36.0) g/dl RDW (11.0-16.0) % Plt Count (160-400) X10*3/uL MPV (9.4-12.4) fL Immature Gran % (Auto) (0.0-0.4) % Neut % (Auto) (45-73) % Lymph % (Auto) (20-40) % [place] % (Auto) (2-11) % Eos % (Auto) (0-4) % Baso % (Auto) (0-2) % Lymph # (Auto) (1.2-4.9) X10*3/uL [place] # (Auto) (0.1-1.2) X10*3/uL Eos # (Auto) (0.0-0.4) X10*3/uL Baso # (Auto) (0.0-0.2) X10*3/uL Abs Immat Gran (auto) (0.00-0.03) X10*3/uL Absolute Neuts (auto) (2.0-8.3) x10*3/uL Absolute Nucleated RBC (0.0-0.012) X10*3/uL Nucleated RBC % (auto) (0.0-0.2) /100WBC Smear Tech's Comments Sodium (135-145) mmol/L Potassium (3.3-5.1) mmol/L Chloride (96-108) mmol/L Carbon Dioxide (22-29) mmol/L Anion Gap (12-20) BUN (9-16) mg/dL Creatinine (0.5-1.4) mg/dL Estim Creat Clear Calc Estimated GFR POC Glucose 55 L* (60-115) mg/dL Random Glucose (60-115) mg/dL Lactic Acid (0.5-2.0) mmol/L Lactic Acid F/U @ 2Hr (0.5-2.0) mmol/L Calcium (8.4-10.2) mg/dL Magnesium (1.6-2.6) mg/dL Total Bilirubin (0.0-1.0) mg/dL AST (5-37) U/L ALT (0-40) U/L Alkaline Phosphatase (39-117) U/L Troponin I High Sens (<3.5-35.0) ng/L B-Natriuretic Peptide (<100) pg/mL Total Protein (6.5-8.0) g/dL Albumin (3.5-5.0) g/dL Lipase (8-78) U/L Urine Color Urine Appearance Urine pH (5.0-8.0) Ur Specific [place] (1.005-1.025) Urine Protein (NEG-TRACE) MG/DL Urine Glucose (UA) (NEG) MG/DL Urine Ketones (NEG) MG/DL Urine Blood (NEG) Urine Nitrite (NEG) Ur Leukocyte Esterase (NEG) Urine RBC (0) /HPF Urine WBC (0-4) /HPF Ur Squamous Epith Cells /LPF Amorphous Sediment /LPF Urine Bacteria /LPF Hyaline Casts /LPF Granular Casts /LPF Urine Mucus /LPF Peritoneal WBC 0.523 X10*3/uL Peritoneal RBC < 0.002 X10*6/uL Periton Neutrophils 36 % Periton Lymphocytes 47 % Peritoneal Monocytes 12 % Peritoneal Other Cells 5 % Peritoneal Tot Protein 1.2 GM/DL Peritoneal LDH 89 U/L Peritoneal Glucose 113 MG/DL COVID-19 (JEFF) (Negative) COVID-19 Clin Com 11/12/21 11/12/21 11/12/21 Range/Units 15:55 16:37 16:37 WBC (4.8-10.8) X10*3/uL RBC (4.60-5.80) X10*6/uL Hgb (14.0-18.0) g/dl Hct (42.0-52.0) % MCV (80.0-98.0) fL MCH (27.0-33.0) pg MCHC (31.0-36.0) g/dl RDW (11.0-16.0) % Plt Count (160-400) X10*3/uL MPV (9.4-12.4) fL Immature Gran % (Auto) (0.0-0.4) % Neut % (Auto) (45-73) % Lymph % (Auto) (20-40) % [place] % (Auto) (2-11) % Eos % (Auto) (0-4) % Baso % (Auto) (0-2) % Lymph # (Auto) (1.2-4.9) X10*3/uL [place] # (Auto) (0.1-1.2) X10*3/uL Eos # (Auto) (0.0-0.4) X10*3/uL Baso # (Auto) (0.0-0.2) X10*3/uL Abs Immat Gran (auto) (0.00-0.03) X10*3/uL Absolute Neuts (auto) (2.0-8.3) x10*3/uL Absolute Nucleated RBC (0.0-0.012) X10*3/uL Nucleated RBC % (auto) (0.0-0.2) /100WBC Smear Tech's Comments Sodium 132 L (135-145) mmol/L Potassium 4.4 D (3.3-5.1) mmol/L Chloride 103 (96-108) mmol/L Carbon Dioxide 14 L (22-29) mmol/L Anion Gap 19 (12-20) BUN 62 H (9-16) mg/dL Creatinine 2.12 H (0.5-1.4) mg/dL Estim Creat Clear Calc 19.9 Estimated GFR 30 POC Glucose (60-115) mg/dL Random Glucose 273 H D (60-115) mg/dL Lactic Acid (0.5-2.0) mmol/L Lactic Acid F/U @ 2Hr (0.5-2.0) mmol/L Calcium 7.9 L D (8.4-10.2) mg/dL Magnesium (1.6-2.6) mg/dL Total Bilirubin (0.0-1.0) mg/dL AST (5-37) U/L ALT (0-40) U/L Alkaline Phosphatase (39-117) U/L Troponin I High Sens 326.6 H* (<3.5-35.0) ng/L B-Natriuretic Peptide (<100) pg/mL Total Protein (6.5-8.0) g/dL Albumin (3.5-5.0) g/dL Lipase (8-78) U/L Urine Color DK YELLOW Urine Appearance CLEAR Urine pH 5.5 (5.0-8.0) Ur Specific [place] 1.020 (1.005-1.025) Urine Protein TRACE (NEG-TRACE) MG/DL Urine Glucose (UA) NEG (NEG) MG/DL Urine Ketones 5 (NEG) MG/DL Urine Blood TRACE (NEG) Urine Nitrite NEG (NEG) Ur Leukocyte Esterase NEG (NEG) Urine RBC 1-4 (0) /HPF Urine WBC 0-2 (0-4) /HPF Ur Squamous Epith Cells 1+ /LPF Amorphous Sediment 2+ /LPF Urine Bacteria TRACE /LPF Hyaline Casts 5-9 /LPF Granular Casts 1-4 /LPF Urine Mucus TRACE /LPF Peritoneal WBC X10*3/uL Peritoneal RBC X10*6/uL Periton Neutrophils % Periton Lymphocytes % Peritoneal Monocytes % Peritoneal Other Cells % Peritoneal Tot Protein GM/DL Peritoneal LDH U/L Peritoneal Glucose MG/DL COVID-19 (JEFF) (Negative) COVID-19 Clin Com 11/12/21 11/12/21 Range/Units 16:37 16:37 WBC (4.8-10.8) X10*3/uL RBC (4.60-5.80) X10*6/uL Hgb (14.0-18.0) g/dl Hct (42.0-52.0) % MCV (80.0-98.0) fL MCH (27.0-33.0) pg MCHC (31.0-36.0) g/dl RDW (11.0-16.0) % Plt Count (160-400) X10*3/uL MPV (9.4-12.4) fL Immature Gran % (Auto) (0.0-0.4) % Neut % (Auto) (45-73) % Lymph % (Auto) (20-40) % [place] % (Auto) (2-11) % Eos % (Auto) (0-4) % Baso % (Auto) (0-2) % Lymph # (Auto) (1.2-4.9) X10*3/uL [place] # (Auto) (0.1-1.2) X10*3/uL Eos # (Auto) (0.0-0.4) X10*3/uL Baso # (Auto) (0.0-0.2) X10*3/uL Abs Immat Gran (auto) (0.00-0.03) X10*3/uL Absolute Neuts (auto) (2.0-8.3) x10*3/uL Absolute Nucleated RBC (0.0-0.012) X10*3/uL Nucleated RBC % (auto) (0.0-0.2) /100WBC Smear Tech's Comments Sodium (135-145) mmol/L Potassium (3.3-5.1) mmol/L Chloride (96-108) mmol/L Carbon Dioxide (22-29) mmol/L Anion Gap (12-20) BUN (9-16) mg/dL Creatinine (0.5-1.4) mg/dL Estim Creat Clear Calc Estimated GFR POC Glucose (60-115) mg/dL Random Glucose (60-115) mg/dL Lactic Acid (0.5-2.0) mmol/L Lactic Acid F/U @ 2Hr 4.8 H* (0.5-2.0) mmol/L Calcium (8.4-10.2) mg/dL Magnesium (1.6-2.6) mg/dL Total Bilirubin (0.0-1.0) mg/dL AST (5-37) U/L ALT (0-40) U/L Alkaline Phosphatase (39-117) U/L Troponin I High Sens (<3.5-35.0) ng/L B-Natriuretic Peptide 732 H (<100) pg/mL Total Protein (6.5-8.0) g/dL Albumin (3.5-5.0) g/dL Lipase (8-78) U/L Urine Color Urine Appearance Urine pH (5.0-8.0) Ur Specific [place] (1.005-1.025) Urine Protein (NEG-TRACE) MG/DL Urine Glucose (UA) (NEG) MG/DL Urine Ketones (NEG) MG/DL Urine Blood (NEG) Urine Nitrite (NEG) Ur Leukocyte Esterase (NEG) Urine RBC (0) /HPF Urine WBC (0-4) /HPF Ur Squamous Epith Cells /LPF Amorphous Sediment /LPF Urine Bacteria /LPF Hyaline Casts /LPF Granular Casts /LPF Urine Mucus /LPF Peritoneal WBC X10*3/uL Peritoneal RBC X10*6/uL Periton Neutrophils % Periton Lymphocytes % Peritoneal Monocytes % Peritoneal Other Cells % Peritoneal Tot Protein GM/DL Peritoneal LDH U/L Peritoneal Glucose MG/DL COVID-19 (JEFF) (Negative) COVID-19 Clin Com <Terry Burt MD - Last Filed: 11/12/21 16:26> Imaging Data Chest x-ray: Radiologist's impression: XR/XR chest 1V IMPRESSION: Blunting of the left lateral costophrenic angle questionable for tiny left pleural effusion or pleural thickening <Nora Templeton CNP - Last Filed: 11/12/21 20:13> ECG Data Attestation: I personally reviewed and interpreted this ECG as follows: <Nora Templeton CNP - Last Filed: 11/12/21 20:13> ECG interpretation date: 11/12/21 <Nora Templeton CNP - Last Filed: 11/12/21 20:13> Prior ECG tracings: not available for review <Nora Templeton CNP - Last Filed: 11/12/21 20:13> Interpretation: Rate: 73 Rhythm:? Normal sinus rhythm [place]:? Normal Normal P waves.? Normal DAVID.?? Normal QRS complex.?? ST T wave :??No ST elevation, ST depression, no T-wave inversion qTC: 431 prior studies:? None available for review The study has been interpreted contemporaneously by me. <Nora Templeton CNP - Last Filed: 11/12/21 20:13> Critical Care Time Critical Care Time Critical Care Time: Yes <Nora Templeton CNP - Last Filed: 11/12/21 20:13> Total Critical Care Time: 60 <Nora Templeton CNP - Last Filed: 11/12/21 20:13> Attestation: I personally attest to this time spent taking care of the patient <Nora Templeton CNP - Last Filed: 11/12/21 20:13> Discharge Plan Discharge Clinical Impression: Bacterial peritonitis, Sepsis, Acute kidney injury <Nora Templeton CNP - Last Filed: 11/12/21 20:13> Patient Disposition: Admitted As Inpatient <Nora Templeton CNP - Last Filed: 11/12/21 20:13> Interventions: Admission Worksheet (ED) Last Done: 11/12/21 19:37 <Nora Templeton, [employer] - Last Filed: 11/12/21 20:13>
[2021-11-12 12:52] LABS: Basophils Percent Auto 0.1 % (0-2); Eosinophils Percent Auto 0.1 % (0-4); Hematocrit 37.7 % (42.0-52.0); Hemoglobin 12.5 g/dl (14.0-18.0); Imm Gran Abs Auto 0.25 X10*3/uL (0.00-0.03); Imm Gran Pct Auto 2.6 % (0.0-0.4); Lymphocytes Absolute Auto 0.2 X10*3/uL (1.2-4.9); Lymphocytes Percent Auto 1.6 % (20-40); MANUAL DIFF FLAG SCAN; Mean Corpuscular HGB Conc 33.2 g/dl (31.0-36.0); Mean Corpuscular Hemoglobin 27.1 pg (27.0-33.0); Mean Corpuscular Volume 81.8 fL (80.0-98.0); Mean Platelet Volume 10.8 fL (9.4-12.4); Monocytes Absolute Auto 0.3 X10*3/uL (0.1-1.2); Monocytes Percent Auto 2.8 % (2-11); Neutrophils Percent Auto 92.8 % (45-73); Platelet Count 150 X10*3/uL (160-400); Red Blood Count 4.61 X10*6/uL (4.60-5.80); Red Cell Distribution Width 23.8 % (11.0-16.0); SCAN SMEAR FLAG 1; White Blood Count 9.7 X10*3/uL (4.8-10.8)
[2021-11-12 13:01] LABS: COVID-19 Test Positive (Negative); IDNOW Serial# 16C4AD1C
[2021-11-12 13:13] LABS: SLIDE REVIEW VERIFIED
[2021-11-12 13:15] LABS: Alanine Aminotransferase 113 U/L (0-40); Albumin Level 2.6 g/dL (3.5-5.0); Alkaline Phosphatase 2125 U/L (39-117); Anion Gap 23 (12-20); Aspartate Amino Transferase 203 U/L (5-37); Bilirubin Total 10.8 mg/dL (0.0-1.0); Blood Urea Nitrogen 72 mg/dL (9-16); Calcium 8.5 mg/dL (8.4-10.2); Carbon Dioxide 13 mmol/L (22-29); Chloride 97 mmol/L (96-108); Creatinine Clr Calc Pharmacy 16.6; Estimated Glomerular Filt Rate 25; Glucose Random 84 mg/dL (60-115); Lipase < 4 U/L (8-78); Magnesium 2.6 mg/dL (1.6-2.6); Potassium 5.8 mmol/L (3.3-5.1); Sodium 127 mmol/L (135-145)
[2021-11-12 13:17] LABS: Lactic Acid 5.2 mmol/L (0.5-2.0)
[2021-11-12 13:18] LABS: Troponin-I High Sensitivity 438.5 ng/L (<3.5-35.0)
[2021-11-12 13:23] LABS: Glucose, Whole Blood 51 mg/dL (60-115)
[2021-11-12] MEDS: 0.9 % Sodium Chloride 1,000 ML 999 ML IV (13:38)
[2021-11-12] MEDS: Albuterol Sulfate (0.083%) 2.5 MG/3 ML VIAL.NEB 10 MG INHALE (13:44)
[2021-11-12] MEDS: Sodium Bicarbonate 8.4% 50 MEQ/50 ML SYRINGE IVPUSH (13:46)
[2021-11-12] MEDS: Calcium Gluconate/NaCl,Iso-Osm 2 GM/100 ML PLAST..BAG IV (13:46)
[2021-11-12] MEDS: Dextrose 50 % 25 GM/50 ML SYRINGE IVPUSH ×2 (13:46→15:20)
[2021-11-12 14:47] LABS: Reflex Lactate? Lactic Acid Added
[2021-11-12] MEDS: Midodrine HCl 10 MG TABLET PO (15:03)
[2021-11-12] MEDS: dexAMETHasone sod phosphate 10 MG/ML VIAL IVPUSH (15:03)
[2021-11-12] MEDS: Lidocaine HCl 2 % Urojet 10 ML JEL.PF.APP TOPICAL (15:36)
[2021-11-12 15:56] LABS: MN% 66.5 %; PMN% 33.5 %; WBC Peritoneal Fluid 0.523 X10*3/uL
[2021-11-12 15:58] LABS: RBC Peritoneal Fluid < 0.002 X10*6/uL
[2021-11-12] MEDS: Albumin Human 25 % 100 ML IV ×3 (16:05→21:37)
[2021-11-12] MEDS: Dextrose 5 % and 0.45 % NaCl 1,000 ML 100 ML IVCONT (16:06)
[2021-11-12 16:07] LABS: Color Urine DK YELLOW; Glucose Urine UA NEG (NEG); Leukocyte Esterase Urine NEG (NEG); Nitrite Urine NEG (NEG); PH 5.5 (5.0-8.0); UACC Culture Trigger NO; Urine Blood TRACE (NEG); Urine Ketones 5 MG/DL (NEG); Urine Protein TRACE MG/DL (NEG-TRACE)
[2021-11-12 16:09] LABS: Appearance Urine CLEAR
[2021-11-12 16:16] LABS: Amorphous Sediment Urine 2+ /LPF; Bacteria Urine TRACE /LPF; Mucus Urine TRACE /LPF; Squamous Epithelial Cell Urine 1+ /LPF; WBC Urine 0-2 /HPF (0-4)
[2021-11-12 16:29] LABS: BF Shift QC OK YES; Neutrophils Peritoneal Fluid 36 %
[2021-11-12 16:30] LABS: Lymphocyte Peritoneal Fl 47 %; Monocytes Peritoneal Fl 12 %; Other Peritioneal Fl 5 %
[2021-11-12 17:08] LABS: B Type Natriuretic Peptide 732 pg/mL (<100)
[2021-11-12 17:17] LABS: Troponin-I High Sensitivity 326.6 ng/L (<3.5-35.0); ~Lactic Acid-LAB USE ONLY 4.8 mmol/L (0.5-2.0)
[2021-11-12 17:18] LABS: Anion Gap 19 (12-20); Blood Urea Nitrogen 62 mg/dL (9-16); Calcium 7.9 mg/dL (8.4-10.2); Carbon Dioxide 14 mmol/L (22-29); Chloride 103 mmol/L (96-108); Creatinine Clr Calc Pharmacy 19.9; Estimated Glomerular Filt Rate 30; Glucose Random 273 mg/dL (60-115); Potassium 4.4 mmol/L (3.3-5.1); Sodium 132 mmol/L (135-145)
[2021-11-12] MEDS: cefTRIAXone sodium 2 GM in 0.9 % Sodium Chloride 50 ML IV (17:19)
--- NOTE | 2021-11-12 18:32 | PHA.MEDREC ---
Addendum entered by Fauzia Anglin [facility] 11/14/21 15:25: Pt's home pharmacies were contacted- [facility] mail order and [facility]. Pt records difficult to verify. Med list from physician's office dated 08/16/21 was cross referenced with insurance claim history, pharmacy info, and family member report. There is discrepancy in records whether son or [facility] is hcp and would have the correct info. Attempted to contact MD office and [facility], unable to connect. Original Note: Pharmacy Consult ? Medication Reconciliation Pharmacy has completed the medication reconciliation. Spoke to patients son. He reviewed medications patient had in his drawer. He said MD had stopped some blood pressure medications but unsure of what was actually stopped. He said [facility] doesnt help with meds and is unsure which [facility] he uses. Md office notes are from August 2021 and do not 100% line up with what son had told me. I informed MD and told him we would follow up on Sunday. The only meds that were the same (per son and per list) were apixiban and spironolactone.
[2021-11-12 18:35] LABS: Glucose, Whole Blood 55 mg/dL (60-115)
[2021-11-12 18:40] LABS: Reflex Lactate? 2 Y
[2021-11-12 18:43] LABS: Glucose Peritoneal Fluid 113 MG/DL; LDH Peritoneal Fluid 89 U/L; Total Protein Peritoneal Fluid 1.2 GM/DL
[2021-11-12] MEDS: Sodium Bicarbonate 8.4% 150 MEQ in Dextrose 5 % 850 ML 50 MEQ IV (19:03)
--- NOTE | 2021-11-12 19:50 | P.HPCC_ITS ---
History of Present Illness Date of Service: 11/12/21 Chief Complaint: Weakness The patient is a 76-year-old male with history of hypertension, hyperlipidemia, type 2 diabetes, pancreatic adenocarcinoma status post chemotherapy and radiation (last January 2021) s/p Aspira Pleural drain, BPH,? and pulmonary embolism? ( on apixaban) who presented to the emergency room with complaints of weakness, fatigue, and shortness of breath.? According to to patient he was diagnosed with COVID-19 6 days ago? and received ? COVID infusion?? a [facility],? he states he has been vaccinated and boosted Pfizer vaccine. ? In the emergency room,? the patient was noted to be hypotensive 70/42 that responded to fluids other vital signs stable.? ? Laboratory data? significant for? sodium 127, potassium 5.8, serum bicarb 13, and anion gap 23, BUN 72, creatinine 2.54, glucose 51,? total bilirubin 10.8, AST 203, ALT 113, alk phos 2125, troponin sensitivity 438, albumin 2.6, lactic 5.2 Imaging:? Chest xray: No acute findings? ?Patient will be admitted to the ICU for? hypotension? Review of Systems Review of Systems: as per HPI, all other symptoms are negative PMFSH Past Medical History Medical History (Updated 11/12/21 @ 20:43 by Ramírez Hernandez NP) BPH (benign prostatic hyperplasia) Diabetes Hypertension Pancreatic adenocarcinoma Pancreatic cancer Pulmonary embolism Family History Family History Mother No problems noted. Surgical History Surgical History History of left knee replacement Social History Social History Alcohol intake: never Advance Directives: No Advance Directives Information Provided: No Meds Allergies Allergy/AdvReac Type Severity Reaction Status Date / Time amoxicillin [From AUGMENTIN] Allergy Severe UNKNOWN Verified 09/01/20 11:47 clavulanic acid Allergy Severe UNKNOWN Verified 09/01/20 11:47 [From AUGMENTIN] Active Medications: Current Medications Apixaban (Apixaban 2.5 Mg Tablet) 2.5 mg PO BID LAURI Sodium Bicarbonate 150 meq/ (Dextrose) 1,000 mls @ 50 mls/hr IV .Q20H [facility] Last Admin: 11/12/21 19:03 Dose: 50 mls/hr Cefepime HCl 1 gm/ Sodium (Chloride) 50 mls @ 100 mls/hr IV Q12H [facility] Insulin Human Lispro (Insulin Lispro 100 Unit/Ml 3 Ml Vial) 0 unit SUBCUT QIDACHS [facility]; Protocol Pharmacy Consult (Consult Rx Perform Med Rec) 1 each MISCELLANE ONCE PRN PRN Reason: Consult order Home Medications Medication Instructions Recorded Confirmed Last Taken Type amlodipine 10 mg tablet 10 mg PO DAILY 11/12/21 Unknown History apixaban 5 mg tablet (Eliquis) 1 tab PO BID 11/12/21 11/12/21 11/11/21 History furosemide 40 mg tablet 1 tab PO DAILY 11/12/21 Unknown History metoprolol succinate 50 mg 1 tab PO DAILY 11/12/21 Unknown History tablet,extended release 24 hr spironolactone 50 mg tablet 1 tab PO DAILY 11/12/21 11/12/21 Unknown History Physical Exam Vital Signs: Vital Signs: Last Vital Signs Temp 97.4 F 11/12/21 12:03 Pulse 69 11/12/21 18:22 Resp 19 11/12/21 18:22 BP 79/50 L 11/12/21 18:22 Pulse Ox 100 11/12/21 18:22 O2 Del Method 11/12/21 18:22 BMI result Body Mass Index 16.5 Gen.-patient is not in acute distress looks comfortable on the bed, speaking in full sentences. HEENT-atraumatic, normocephalic, . Extraocular movements intact. mild pallor Neck-supple, no JVD, Pulm- lungs-bilateral air entry clear to auscultation, no wheezing Abdomen-soft, nontender, distended, bowel sounds present, fluid thrill(+), no guarding, no rigidity, no rebound tenderness. Neurological-patient is oriented ?3. No focal neurological deficits noted. Extremities-pulses 2+. 2+ pedal edema upto knees, No tenderness of the calf muscles Skin - small bruises over both arms and legs Psychiatric-patient's mood is stable Results Labs CBC and Chem 7: 11/12/21 12:43 11/12/21 16:37 Labs: Laboratory Results - last 24 hr 11/12/21 11/12/21 11/12/21 12:43 12:43 12:43 MCV 81.8 MCH 27.1 MCHC 33.2 RDW 23.8 H Plt Count 150 L MPV 10.8 Immature Gran % (Auto) 2.6 H Neut % (Auto) 92.8 H Lymph % (Auto) 1.6 L [place] % (Auto) 2.8 Eos % (Auto) 0.1 Baso % (Auto) 0.1 Lymph # (Auto) 0.2 L [place] # (Auto) 0.3 Eos # (Auto) 0.0 Baso # (Auto) 0.0 Abs Immat Gran (auto) 0.25 H Absolute Neuts (auto) 9.0 H Absolute Nucleated RBC 0.000 Nucleated RBC % (auto) 0.0 Smear Tech's Comments VERIFIED Anion Gap 23 H Estim Creat Clear Calc 16.6 Estimated GFR 25 POC Glucose Random Glucose 84 Lactic Acid Lactic Acid F/U @ 2Hr Lactic Acid F/U @ 4Hr Calcium 8.5 D Magnesium 2.6 Total Bilirubin 10.8 H AST 203 H ALT 113 H Alkaline Phosphatase 2125 H D Troponin I High Sens 438.5 H* B-Natriuretic Peptide Total Protein 6.0 L Albumin 2.6 L D Lipase < 4 L Urine Color Urine Appearance Urine pH Ur Specific [place] Urine Protein Urine Glucose (UA) Urine Ketones Urine Blood Urine Nitrite Ur Leukocyte Esterase Urine RBC Urine WBC Ur Squamous Epith Cells Amorphous Sediment Urine Bacteria Hyaline Casts Granular Casts Urine Mucus Peritoneal WBC Peritoneal RBC Periton Neutrophils Periton Lymphocytes Peritoneal Monocytes Peritoneal Other Cells Peritoneal Tot Protein Peritoneal LDH Peritoneal Glucose COVID-19 (JEFF) COVID-19 Clin Com 11/12/21 11/12/21 11/12/21 12:43 12:46 13:18 MCV MCH MCHC RDW Plt Count MPV Immature Gran % (Auto) Neut % (Auto) Lymph % (Auto) [place] % (Auto) Eos % (Auto) Baso % (Auto) Lymph # (Auto) [place] # (Auto) Eos # (Auto) Baso # (Auto) Abs Immat Gran (auto) Absolute Neuts (auto) Absolute Nucleated RBC Nucleated RBC % (auto) Smear Tech's Comments Anion Gap Estim Creat Clear Calc Estimated GFR POC Glucose 51 L* Random Glucose Lactic Acid 5.2 H* Lactic Acid F/U @ 2Hr Lactic Acid F/U @ 4Hr Calcium Magnesium Total Bilirubin AST ALT Alkaline Phosphatase Troponin I High Sens B-Natriuretic Peptide Total Protein Albumin Lipase Urine Color Urine Appearance Urine pH Ur Specific [place] Urine Protein Urine Glucose (UA) Urine Ketones Urine Blood Urine Nitrite Ur Leukocyte Esterase Urine RBC Urine WBC Ur Squamous Epith Cells Amorphous Sediment Urine Bacteria Hyaline Casts Granular Casts Urine Mucus Peritoneal WBC Peritoneal RBC Periton Neutrophils Periton Lymphocytes Peritoneal Monocytes Peritoneal Other Cells Peritoneal Tot Protein Peritoneal LDH Peritoneal Glucose COVID-19 (JEFF) Positive A COVID-19 Clin Com See Note 11/12/21 11/12/21 11/12/21 14:19 15:48 15:49 MCV MCH MCHC RDW Plt Count MPV Immature Gran % (Auto) Neut % (Auto) Lymph % (Auto) [place] % (Auto) Eos % (Auto) Baso % (Auto) Lymph # (Auto) [place] # (Auto) Eos # (Auto) Baso # (Auto) Abs Immat Gran (auto) Absolute Neuts (auto) Absolute Nucleated RBC Nucleated RBC % (auto) Smear Tech's Comments Anion Gap Estim Creat Clear Calc Estimated GFR POC Glucose 55 L* Random Glucose Lactic Acid Lactic Acid F/U @ 2Hr Lactic Acid F/U @ 4Hr Calcium Magnesium Total Bilirubin AST ALT Alkaline Phosphatase Troponin I High Sens B-Natriuretic Peptide Total Protein Albumin Lipase Urine Color Urine Appearance Urine pH Ur Specific [place] Urine Protein Urine Glucose (UA) Urine Ketones Urine Blood Urine Nitrite Ur Leukocyte Esterase Urine RBC Urine WBC Ur Squamous Epith Cells Amorphous Sediment Urine Bacteria Hyaline Casts Granular Casts Urine Mucus Peritoneal WBC 0.523 Peritoneal RBC < 0.002 [place]iton Neutrophils 36 Periton Lymphocytes 47 Peritoneal Monocytes 12 Peritoneal Other Cells 5 Peritoneal Tot Protein 1.2 Peritoneal LDH 89 Peritoneal Glucose 113 COVID-19 (JEFF) COVID-19 Clin Com 11/12/21 11/12/21 11/12/21 15:55 16:37 16:37 MCV MCH MCHC RDW Plt Count MPV Immature Gran % (Auto) Neut % (Auto) Lymph % (Auto) [place] % (Auto) Eos % (Auto) Baso % (Auto) Lymph # (Auto) [place] # (Auto) Eos # (Auto) Baso # (Auto) Abs Immat Gran (auto) Absolute Neuts (auto) Absolute Nucleated RBC Nucleated RBC % (auto) Smear Tech's Comments Anion Gap 19 Estim Creat Clear Calc 19.9 Estimated GFR 30 POC Glucose Random Glucose 273 H D Lactic Acid Lactic Acid F/U @ 2Hr Lactic Acid F/U @ 4Hr Calcium 7.9 L D Magnesium Total Bilirubin AST ALT Alkaline Phosphatase Troponin I High Sens 326.6 H* B-Natriuretic Peptide Total Protein Albumin Lipase Urine Color DK YELLOW Urine Appearance CLEAR Urine pH 5.5 Ur Specific [place] 1.020 Urine Protein TRACE Urine Glucose (UA) NEG Urine Ketones 5 Urine Blood TRACE Urine Nitrite NEG Ur Leukocyte Esterase NEG Urine RBC 1-4 Urine WBC 0-2 Ur Squamous Epith Cells 1+ Amorphous Sediment 2+ Urine Bacteria TRACE Hyaline Casts 5-9 Granular Casts 1-4 Urine Mucus TRACE Peritoneal WBC Peritoneal RBC Periton Neutrophils Periton Lymphocytes Peritoneal Monocytes Peritoneal Other Cells Peritoneal Tot Protein Peritoneal LDH Peritoneal Glucose COVID-19 (JEFF) COVID-19 [employer] Com 11/12/21 11/12/21 11/12/21 16:37 16:37 19:04 MCV MCH MCHC RDW Plt Count MPV Immature Gran % (Auto) Neut % (Auto) Lymph % (Auto) [place] % (Auto) Eos % (Auto) Baso % (Auto) Lymph # (Auto) [place] # (Auto) Eos # (Auto) Baso # (Auto) Abs Immat Gran (auto) Absolute Neuts (auto) Absolute Nucleated RBC Nucleated RBC % (auto) Smear Tech's Comments Anion Gap Estim Creat Clear Calc Estimated GFR POC Glucose Random Glucose Lactic Acid Lactic Acid F/U @ 2Hr 4.8 H* Lactic Acid F/U @ 4Hr 4.0 H* Calcium Magnesium Total Bilirubin AST ALT Alkaline Phosphatase Troponin I High Sens B-Natriuretic Peptide 732 H Total Protein Albumin Lipase Urine Color Urine Appearance Urine pH Ur Specific [place] Urine Protein Urine Glucose (UA) Urine Ketones Urine Blood Urine Nitrite Ur Leukocyte Esterase Urine RBC Urine WBC Ur Squamous Epith Cells Amorphous Sediment Urine Bacteria Hyaline Casts Granular Casts Urine Mucus Peritoneal WBC Peritoneal RBC Periton Neutrophils Periton Lymphocytes Peritoneal Monocytes Peritoneal Other Cells Peritoneal Tot Protein Peritoneal LDH Peritoneal Glucose COVID-19 (JEFF) COVID-19 Clin Com Imaging Radiologist's Impressions: Impressions Chest X-Ray 11/12/21 12:29 IMPRESSION: Blunting of the left lateral costophrenic angle questionable for tiny left pleural effusion or pleural thickening Chest X-Ray 11/12/21 15:26 IMPRESSION: No evidence for acute disease in the chest. Assessment and Plan (1) Hypotension: Status: Acute (2) Liver cirrhosis: Status: Acute (3) Hypoglycemia: Status: Acute (4) Acute kidney injury: Status: Acute (5) Failure to thrive in adult: Status: Acute (6) COVID-19 virus infection: Status: Acute Plan Neuro: no aute issues Cardiac:?? ?Hypotension-? patient has? pancreatic cancer, failure to thrive ? and COVID-19? diagnosis this is likely the cause of? acute hypotension. ? Despite lactic being elevated,? there is no evidence of severe infection. ? Patient responded to? to fluids? initially,? will also add albumin? Pulmonary:? ?COVID-19 infection-? patient was diagnosed 6 days ago with COVID,? and received a ? infusion?? at [facility].? Today,? patient is in room air.? Will continue to monitor for worsening? symptoms Renal:?? PATRICK- ? Creatinine 2.54 today This is most likely hypoperfusion and failure to thrive.? 1liter received in ED. His albumin was noted to also be very low. Will continue albumin replacement, no more crystalloids due to risk of third spacing. Continue to check renal indices and urine output.? GI:?? ?Liver cirrhosis with ascites: patient has a diagnosis of pancreatic adeno carcinoma? is status post Aspira Pleural drain, that gets drain by [facility]. Today it was drain in ED, no evidence of SBP. Will obtain CT abdomen.? Will cont to recheck liver profile closely? Endo:?? ?Hypoglycemia-? this is likely due to liver cirrhosis and failure to thrive. ? Will continue with? extra fluids.? Heme/Onc:? ?No acute? issues ID:? ?Patient has no leukocytosis,? no evidence of severe infection,? but due to her enzymes being elevated he is at higher risk for having cholecystitis. CT abodmen pending. No evidence of SBP pleural fluid. Was given ceftriaxone in the ED,? will change it to cefepime? until cultures are resulted Psych:? No acute issues. Diet: Diabetic? Prophylaxis: ? apixaban Code? status: ? ? FULL CODE.? This was confirmed by ED provider Critical care time: x 60 min of critical care time Case discussed with attending Dr Tapia Critical Care Time Critical Care Time (minutes): 60
[2021-11-12] MEDS: iohexoL 300 MG/ML 100 ML INFUS..BTL IV (20:25)
--- NOTE | 2021-11-12 20:50 | PC.NURSE ---
Pt. did not come to ICU with any belongings
[2021-11-12] MEDS: cefEPime HCl 1 GM in 0.9 % Sodium Chloride 50 ML IV (21:36)
[2021-11-12] MEDS: Insulin Lispro 100 UNIT/ML 3 ML VIAL SUBCUT (21:38)
[2021-11-13] VITALS (24 sets, daily range): BP systolic 84–113; BP diastolic 43–63; PULSE 62–82; RESP 13–22; TEMP 36.3–36.6; O2SAT 91–100; BMI 19.0
[2021-11-13 00:03] LABS: Glucose, Whole Blood 220 mg/dL (60-115)
[2021-11-13] MEDS: Morphine Sulfate 2 MG/ML CARTRIDGE 1 MG IVPUSH (00:21)
[2021-11-13] MEDS: Lidocaine HCl 2 % Urojet 10 ML JEL.PF.APP TOPICAL (00:21)
[2021-11-13 05:37] LABS: VBG HCO3 17 mmol/L (22-26); VBG pCO2 23 mmHg; VBG pH 7.47 (7.32-7.43); VBG pO2 39 mmHg
[2021-11-13 05:43] LABS: Hematocrit 21.2 % (42.0-52.0); Hemoglobin 7.1 g/dl (14.0-18.0); Mean Corpuscular HGB Conc 33.5 g/dl (31.0-36.0); Mean Corpuscular Hemoglobin 27.3 pg (27.0-33.0); Mean Corpuscular Volume 81.5 fL (80.0-98.0); Mean Platelet Volume 10.2 fL (9.4-12.4); Red Cell Distribution Width 23.8 % (11.0-16.0)
[2021-11-13 06:04] LABS: Lactic Acid 3.5 mmol/L (0.5-2.0)
[2021-11-13 06:06] LABS: Platelet Count 56 X10*3/uL (160-400)
[2021-11-13 06:09] LABS: Band Neutrophils Percent 23 % (3-5); Lymphocytes Absolute Manual 0.1 X10*3/uL (1.2-4.9); Lymphocytes Percent Manual 1 % (20-40); Metamyelocytes Absolute 0.1 X10*3/uL; Metamyelocytes Percent 1 %; Monocytes Absolute Manual 0.3 X10*3/uL (0.1-1.2); Monocytes Percent Manual 3 % (2-11); Neutrophils Absolute Manual 8.6 X10*3/uL (2.0-8.3); Neutrophils Percent Manual 72 % (45-73)
[2021-11-13 06:10] LABS: Alanine Aminotransferase 67 U/L (0-40); Albumin Level 2.6 g/dL (3.5-5.0); Alkaline Phosphatase 1016 U/L (39-117); Anion Gap 16 (12-20); Aspartate Amino Transferase 95 U/L (5-37); Bilirubin Total 6.1 mg/dL (0.0-1.0); Blood Urea Nitrogen 70 mg/dL (9-16); Calcium 7.6 mg/dL (8.4-10.2); Carbon Dioxide 19 mmol/L (22-29); Chloride 100 mmol/L (96-108); Creatinine Clr Calc Pharmacy 27.1; Estimated Glomerular Filt Rate 37; Glucose Random 193 mg/dL (60-115); Magnesium 2.2 mg/dL (1.6-2.6); Phosphorus 3.2 mg/dL (2.7-4.5); Potassium 4.5 mmol/L (3.3-5.1); Sodium 130 mmol/L (135-145); Total Protein 4.4 g/dL (6.5-8.0)
[2021-11-13 06:11] LABS: Large Platelet PRESENT; Microcytosis 1+ (5-14) /OIF; Platelet Estimate DECREASED (NORMAL); Platelet Morphology Comment NOTED; RBC Morphology NOTED
[2021-11-13 06:12] LABS: Dohle Bodies PRESENT; Hypochromasia 2+ (15-30) /OIF; Schistocytes 1+ (0-2) /OIF; Target Cells 1+ (5-14) /OIF; Toxic Granulation PRESENT; Toxic Vacuolation PRESENT
[2021-11-13 07:06] LABS: Hematocrit 21.5 % (42.0-52.0); Hemoglobin 7.2 g/dl (14.0-18.0); Mean Corpuscular HGB Conc 33.5 g/dl (31.0-36.0); Mean Corpuscular Hemoglobin 27.6 pg (27.0-33.0); Mean Corpuscular Volume 82.4 fL (80.0-98.0); Mean Platelet Volume 10.8 fL (9.4-12.4); Red Blood Count 2.61 X10*6/uL (4.60-5.80); Red Cell Distribution Width 23.8 % (11.0-16.0); White Blood Count 8.4 X10*3/uL (4.8-10.8)
[2021-11-13 07:14] LABS: Platelet Count 55 X10*3/uL (160-400)
[2021-11-13 07:22] LABS: Glucose, Whole Blood 178 mg/dL (60-115)
[2021-11-13 07:36] LABS: Reflex Lactate? Lactic Acid Added
[2021-11-13] MEDS: cefEPime HCl 1 GM in 0.9 % Sodium Chloride 50 ML IV ×2 (07:37→20:13)
[2021-11-13] MEDS: Albumin Human 25 % 100 ML IV ×3 (07:38→17:54)
[2021-11-13] MEDS: Apixaban 2.5 MG TABLET PO ×2 (07:38→20:13)
[2021-11-13] MEDS: Insulin Lispro 100 UNIT/ML 3 ML VIAL SUBCUT ×2 (07:38→16:29)
[2021-11-13 08:33] LABS: ~Lactic Acid-LAB USE ONLY 3.1 mmol/L (0.5-2.0)
[2021-11-13 09:01] LABS: Venous Blood Gas Refer to POC result
[2021-11-13 10:07] LABS: Reflex Lactate? 2 Y
--- NOTE | 2021-11-13 11:15 | P.CONGS_ITS ---
History of Present Illness Consult details Consult date: 11/13/21 Narrative: 76-year-old male patient with multiple medical problems including hypertension, hyperlipidemia, type 2 diabetes, pancreatic adenocarcinoma, BPH and pulmonary embolism presenting to the emergency department for increased weakness and fatigue, shortness of breath. he was found to be hypotensive but responded to fluids. He recently tested positive for COVID-19 but was previously vaccinated. He previously underwent surgery for the pancreatic cancer however he was unable to proceed with a Whipple procedure. He does have a stent in place. CT of the abdomen notes gas within the liver as well as pancolonic wall thickening and 2 areas of hypo enhancing large bowel involving the transverse and sigmoid colon raising suspicion of ischemic colitis. A large pancreatic mass measuring 5 cm is identified; a common bile duct stent is in place as well. Significant gastric distention is also identified. This is suggestive of a gastric outlet obstruction. Surgical consultation was requested for possible ischemic bowel. Review of Systems Review of Systems: Yes all other systems are reviewed and are negative Constitutional: Constitutional: Reports anorexia, Reports lethargy and Reports poor appetite Cardiovascular: Cardiovascular: Reports dyspnea and Reports dyspnea on exertion Respiratory: Respiratory: Reports dyspnea and Reports dyspnea on exertion Gastrointestinal: Gastrointestinal: Denies abdominal pain, Reports nausea and Denies vomiting Hematologic/Lymphatic: Hematologic/Lymphatic: Reports as per [facility] Past Medical History Medical History BPH (benign prostatic hyperplasia) Diabetes Hypertension Pancreatic adenocarcinoma Pancreatic cancer Pulmonary embolism Family History Family History Mother No problems noted. Surgical History Surgical History History of left knee replacement Social History Social History Household Members: Children Household Members Other:: Son Housing: House Do you presently have visiting nurse or other home services: Yes Alcohol intake: never Patient Tobacco Use Status: Former Tobacco user Tobacco use type: Cigarette Smoked in Last 30 Days: No Use of substances other than those prescribed or required for medical reasons: No Currently Displaying Signs/Symptoms of Drug Intoxication Withdrawal: No Have you been hit, kicked, punched, or otherwise hurt by someone within the past year? If so, by whom?: No Do you feel safe in your current relationship?: No Current Relationship Is there a partner from a previous relationship who is making you feel unsafe now?: No Are you made to feel afraid or neglected: No Spiritual Healthcare Practices: N/A [employer] Healthcare Practices: [employer] Cultural Healthcare Practices: N/A Advance Directives: No Advance Directives Information Provided: No Do you have thoughts of harming others: None Do you have a plan to hurt others: No Plan Recently lost weight without trying: Unsure How much weight loss: Not applicable Eating poorly because of decreased appetite: Yes Nutrition screen score: 3 Nutrition Risks: Poor intake 0-25% >4 days Poor oral hygiene: No Meds Allergies Allergy/AdvReac Type Severity Reaction Status Date / Time amoxicillin [From AUGMENTIN] Allergy Severe UNKNOWN Verified 09/01/20 11:47 clavulanic acid Allergy Severe UNKNOWN Verified 09/01/20 11:47 [From AUGMENTIN] Active Medications: Current Medications Apixaban (Apixaban 2.5 Mg Tablet) 2.5 mg PO BID [facility] Last Admin: 11/13/21 07:38 Dose: 2.5 mg Sodium Bicarbonate 150 meq/ (Dextrose) 1,000 mls @ 50 mls/hr IV .Q20H [facility] Last Admin: 11/12/21 19:03 Dose: 50 mls/hr Cefepime HCl 1 gm/ Sodium (Chloride) 50 mls @ 100 mls/hr IV Q12H [facility] Last Infusion: 11/13/21 08:58 Dose: Infused Albumin Human (Kedbumin 25 %) 100 mls @ 100 mls/hr IV Q6H [facility] Stop: 11/14/21 01:59 Last Infusion: 11/13/21 08:57 Dose: Infused Insulin Human Lispro (Insulin Lispro 100 Unit/Ml 3 Ml Vial) 0 unit SUBCUT QIDACHS [facility]; Protocol Last Admin: 11/13/21 07:38 Dose: 2 unit Pharmacy Consult (Consult Rx Perform Med Rec) 1 each MISCELLANE ONCE PRN PRN Reason: Consult order Home Medications Medication Instructions Recorded Confirmed Last Taken Type amlodipine 10 mg tablet 10 mg PO DAILY 11/12/21 Unknown History apixaban 5 mg tablet (Eliquis) 1 tab PO BID 11/12/21 11/12/21 11/11/21 History furosemide 40 mg tablet 1 tab PO DAILY 11/12/21 Unknown History metoprolol succinate 50 mg 1 tab PO DAILY 11/12/21 Unknown History tablet,extended release 24 hr spironolactone 50 mg tablet 1 tab PO DAILY 11/12/21 11/12/21 Unknown History Physical Exam Vital Signs: Vital Signs: Last Vital Signs Temp 97.4 F 11/13/21 08:00 Pulse 68 11/13/21 10:00 Resp 16 11/13/21 10:00 BP 103/56 L 11/13/21 10:00 Pulse Ox 96 11/13/21 10:00 O2 Del Method 11/13/21 10:00 BMI result Body Mass Index 19.0 Const: General: comfortable and ill appearing Nutritional Appearance: thin Orientation/consciousness: patient oriented x3 Neck: Neck: Yes no JVD Resp: Effort & Inspection: normal respiratory effort, no audible wheezes and no cough GI: Palpation (GI): Soft to palpation, nontender, no guarding, not rigid and No Rebound tenderness present Percussion: Yes normal to percussion Rectal Exam - Male: Yes deferred Neuro: General: patient oriented x3 Extrem: Other: Multiple areas of ecchymosis bilaterally Results Labs Result diagrams: 11/13/21 06:57 11/13/21 05:35 Labs: Abnormal lab results 11/12/21 11/12/21 11/12/21 Range/Units 12:43 12:43 12:43 RBC (4.60-5.80) X10*6/uL Hgb 12.5 L (14.0-18.0) g/dl Hct 37.7 L (42.0-52.0) % RDW 23.8 H (11.0-16.0) % Plt Count 150 L (160-400) X10*3/uL Immature Gran % (Auto) 2.6 H (0.0-0.4) % Neut % (Auto) 92.8 H (45-73) % Lymph % (Auto) 1.6 L (20-40) % Lymph # (Auto) 0.2 L (1.2-4.9) X10*3/uL Abs Immat Gran (auto) 0.25 H (0.00-0.03) X10*3/uL Absolute Neuts (auto) 9.0 H (2.0-8.3) x10*3/uL Band Neutrophils % (3-5) % Lymphocytes % (Manual) (20-40) % Abs Neuts (Manual) (2.0-8.3) X10*3/uL Lymphocytes # (Manual) (1.2-4.9) X10*3/uL VBG pH (7.32-7.43) VBG HCO3 (22-26) mmol/L Sodium 127 L (135-145) mmol/L Potassium 5.8 H D (3.3-5.1) mmol/L Carbon Dioxide 13 L (22-29) mmol/L Anion Gap 23 H (12-20) BUN 72 H (9-16) mg/dL Creatinine 2.54 H (0.5-1.4) mg/dL POC Glucose (60-115) mg/dL Random Glucose (60-115) mg/dL Lactic Acid (0.5-2.0) mmol/L Lactic Acid F/U @ 2Hr (0.5-2.0) mmol/L Lactic Acid F/U @ 4Hr (0.5-2.0) mmol/L Calcium (8.4-10.2) mg/dL Total Bilirubin 10.8 H (0.0-1.0) mg/dL AST 203 H (5-37) U/L ALT 113 H (0-40) U/L Alkaline Phosphatase 2125 H D (39-117) U/L Troponin I High Sens 438.5 H* (<3.5-35.0) ng/L B-Natriuretic Peptide (<100) pg/mL Total Protein 6.0 L (6.5-8.0) g/dL Albumin 2.6 L D (3.5-5.0) g/dL Lipase < 4 L (8-78) U/L COVID-19 (JEFF) (Negative) 11/12/21 11/12/21 11/12/21 Range/Units 12:43 12:46 13:18 RBC (4.60-5.80) X10*6/uL Hgb (14.0-18.0) g/dl Hct (42.0-52.0) % RDW (11.0-16.0) % Plt Count (160-400) X10*3/uL Immature Gran % (Auto) (0.0-0.4) % Neut % (Auto) (45-73) % Lymph % (Auto) (20-40) % Lymph # (Auto) (1.2-4.9) X10*3/uL Abs Immat Gran (auto) (0.00-0.03) X10*3/uL Absolute Neuts (auto) (2.0-8.3) x10*3/uL Band Neutrophils % (3-5) % Lymphocytes % (Manual) (20-40) % Abs Neuts (Manual) (2.0-8.3) X10*3/uL Lymphocytes # (Manual) (1.2-4.9) X10*3/uL VBG pH (7.32-7.43) VBG HCO3 (22-26) mmol/L Sodium (135-145) mmol/L Potassium (3.3-5.1) mmol/L Carbon Dioxide (22-29) mmol/L Anion Gap (12-20) BUN (9-16) mg/dL Creatinine (0.5-1.4) mg/dL POC Glucose 51 L* (60-115) mg/dL Random Glucose (60-115) mg/dL Lactic Acid 5.2 H* (0.5-2.0) mmol/L Lactic Acid F/U @ 2Hr (0.5-2.0) mmol/L Lactic Acid F/U @ 4Hr (0.5-2.0) mmol/L Calcium (8.4-10.2) mg/dL Total Bilirubin (0.0-1.0) mg/dL AST (5-37) U/L ALT (0-40) U/L Alkaline Phosphatase (39-117) U/L Troponin I High Sens (<3.5-35.0) ng/L B-Natriuretic Peptide (<100) pg/mL Total Protein (6.5-8.0) g/dL Albumin (3.5-5.0) g/dL Lipase (8-78) U/L COVID-19 (JEFF) Positive A (Negative) 11/12/21 11/12/21 11/12/21 Range/Units 14:19 16:37 16:37 RBC (4.60-5.80) X10*6/uL Hgb (14.0-18.0) g/dl Hct (42.0-52.0) % RDW (11.0-16.0) % Plt Count (160-400) X10*3/uL Immature Gran % (Auto) (0.0-0.4) % Neut % (Auto) (45-73) % Lymph % (Auto) (20-40) % Lymph # (Auto) (1.2-4.9) X10*3/uL Abs Immat Gran (auto) (0.00-0.03) X10*3/uL Absolute Neuts (auto) (2.0-8.3) x10*3/uL Band Neutrophils % (3-5) % Lymphocytes % (Manual) (20-40) % Abs Neuts (Manual) (2.0-8.3) X10*3/uL Lymphocytes # (Manual) (1.2-4.9) X10*3/uL VBG pH (7.32-7.43) VBG HCO3 (22-26) mmol/L Sodium 132 L (135-145) mmol/L Potassium (3.3-5.1) mmol/L Carbon Dioxide 14 L (22-29) mmol/L Anion Gap (12-20) BUN 62 H (9-16) mg/dL Creatinine 2.12 H (0.5-1.4) mg/dL POC Glucose 55 L* (60-115) mg/dL Random Glucose 273 H D (60-115) mg/dL Lactic Acid (0.5-2.0) mmol/L Lactic Acid F/U @ 2Hr (0.5-2.0) mmol/L Lactic Acid F/U @ 4Hr (0.5-2.0) mmol/L Calcium 7.9 L D (8.4-10.2) mg/dL Total Bilirubin (0.0-1.0) mg/dL AST (5-37) U/L ALT (0-40) U/L Alkaline Phosphatase (39-117) U/L Troponin I High Sens 326.6 H* (<3.5-35.0) ng/L B-Natriuretic Peptide (<100) pg/mL Total Protein (6.5-8.0) g/dL Albumin (3.5-5.0) g/dL Lipase (8-78) U/L COVID-19 (JEFF) (Negative) 11/12/21 11/12/21 11/12/21 Range/Units 16:37 16:37 19:04 RBC (4.60-5.80) X10*6/uL Hgb (14.0-18.0) g/dl Hct (42.0-52.0) % RDW (11.0-16.0) % Plt Count (160-400) X10*3/uL Immature Gran % (Auto) (0.0-0.4) % Neut % (Auto) (45-73) % Lymph % (Auto) (20-40) % Lymph # (Auto) (1.2-4.9) X10*3/uL Abs Immat Gran (auto) (0.00-0.03) X10*3/uL Absolute Neuts (auto) (2.0-8.3) x10*3/uL Band Neutrophils % (3-5) % Lymphocytes % (Manual) (20-40) % Abs Neuts (Manual) (2.0-8.3) X10*3/uL Lymphocytes # (Manual) (1.2-4.9) X10*3/uL VBG pH (7.32-7.43) VBG HCO3 (22-26) mmol/L Sodium (135-145) mmol/L Potassium (3.3-5.1) mmol/L Carbon Dioxide (22-29) mmol/L Anion Gap (12-20) BUN (9-16) mg/dL Creatinine (0.5-1.4) mg/dL POC Glucose (60-115) mg/dL Random Glucose (60-115) mg/dL Lactic Acid (0.5-2.0) mmol/L Lactic Acid F/U @ 2Hr 4.8 H* (0.5-2.0) mmol/L Lactic Acid F/U @ 4Hr 4.0 H* (0.5-2.0) mmol/L Calcium (8.4-10.2) mg/dL Total Bilirubin (0.0-1.0) mg/dL AST (5-37) U/L ALT (0-40) U/L Alkaline Phosphatase (39-117) U/L Troponin I High Sens (<3.5-35.0) ng/L B-Natriuretic Peptide 732 H (<100) pg/mL Total Protein (6.5-8.0) g/dL Albumin (3.5-5.0) g/dL Lipase (8-78) U/L COVID-19 (JEFF) (Negative) 11/12/21 11/13/21 11/13/21 Range/Units 21:01 05:34 05:35 RBC 2.60 L D (4.60-5.80) X10*6/uL Hgb 7.1 L D (14.0-18.0) g/dl Hct 21.2 L D (42.0-52.0) % RDW 23.8 H (11.0-16.0) % Plt Count 56 L D (160-400) X10*3/uL Immature Gran % (Auto) (0.0-0.4) % Neut % (Auto) (45-73) % Lymph % (Auto) (20-40) % Lymph # (Auto) (1.2-4.9) X10*3/uL Abs Immat Gran (auto) (0.00-0.03) X10*3/uL Absolute Neuts (auto) (2.0-8.3) x10*3/uL Band Neutrophils % 23 H (3-5) % Lymphocytes % (Manual) 1 L (20-40) % Abs Neuts (Manual) 8.6 H (2.0-8.3) X10*3/uL Lymphocytes # (Manual) 0.1 L (1.2-4.9) X10*3/uL VBG pH 7.47 H (7.32-7.43) VBG HCO3 17 L (22-26) mmol/L Sodium (135-145) mmol/L Potassium (3.3-5.1) mmol/L Carbon Dioxide (22-29) mmol/L Anion Gap (12-20) BUN (9-16) mg/dL Creatinine (0.5-1.4) mg/dL POC Glucose 220 H (60-115) mg/dL Random Glucose (60-115) mg/dL Lactic Acid (0.5-2.0) mmol/L Lactic Acid F/U @ 2Hr (0.5-2.0) mmol/L Lactic Acid F/U @ 4Hr (0.5-2.0) mmol/L Calcium (8.4-10.2) mg/dL Total Bilirubin (0.0-1.0) mg/dL AST (5-37) U/L ALT (0-40) U/L Alkaline Phosphatase (39-117) U/L Troponin I High Sens (<3.5-35.0) ng/L B-Natriuretic Peptide (<100) pg/mL Total Protein (6.5-8.0) g/dL Albumin (3.5-5.0) g/dL Lipase (8-78) U/L COVID-19 (JEFF) (Negative) 11/13/21 11/13/21 11/13/21 Range/Units 05:35 05:35 06:57 RBC 2.61 L (4.60-5.80) X10*6/uL Hgb 7.2 L (14.0-18.0) g/dl Hct 21.5 L (42.0-52.0) % RDW 23.8 H (11.0-16.0) % Plt Count 55 L (160-400) X10*3/uL Immature Gran % (Auto) (0.0-0.4) % Neut % (Auto) (45-73) % Lymph % (Auto) (20-40) % Lymph # (Auto) (1.2-4.9) X10*3/uL Abs Immat Gran (auto) (0.00-0.03) X10*3/uL Absolute Neuts (auto) (2.0-8.3) x10*3/uL Band Neutrophils % (3-5) % Lymphocytes % (Manual) (20-40) % Abs Neuts (Manual) (2.0-8.3) X10*3/uL Lymphocytes # (Manual) (1.2-4.9) X10*3/uL VBG pH (7.32-7.43) VBG HCO3 (22-26) mmol/L Sodium 130 L (135-145) mmol/L Potassium (3.3-5.1) mmol/L Carbon Dioxide 19 L (22-29) mmol/L Anion Gap (12-20) BUN 70 H (9-16) mg/dL Creatinine 1.80 H (0.5-1.4) mg/dL POC Glucose (60-115) mg/dL Random Glucose 193 H (60-115) mg/dL Lactic Acid 3.5 H* (0.5-2.0) mmol/L Lactic Acid F/U @ 2Hr (0.5-2.0) mmol/L Lactic Acid F/U @ 4Hr (0.5-2.0) mmol/L Calcium 7.6 L (8.4-10.2) mg/dL Total Bilirubin 6.1 H (0.0-1.0) mg/dL AST 95 H (5-37) U/L ALT 67 H (0-40) U/L Alkaline Phosphatase 1016 H D (39-117) U/L Troponin I High Sens (<3.5-35.0) ng/L B-Natriuretic Peptide (<100) pg/mL Total Protein 4.4 L D (6.5-8.0) g/dL Albumin 2.6 L (3.5-5.0) g/dL Lipase (8-78) U/L COVID-19 (JEFF) (Negative) 11/13/21 11/13/21 Range/Units 07:14 07:46 RBC (4.60-5.80) X10*6/uL Hgb (14.0-18.0) g/dl Hct (42.0-52.0) % RDW (11.0-16.0) % Plt Count (160-400) X10*3/uL Immature Gran % (Auto) (0.0-0.4) % Neut % (Auto) (45-73) % Lymph % (Auto) (20-40) % Lymph # (Auto) (1.2-4.9) X10*3/uL Abs Immat Gran (auto) (0.00-0.03) X10*3/uL Absolute Neuts (auto) (2.0-8.3) x10*3/uL Band Neutrophils % (3-5) % Lymphocytes % (Manual) (20-40) % Abs Neuts (Manual) (2.0-8.3) X10*3/uL Lymphocytes # (Manual) (1.2-4.9) X10*3/uL VBG pH (7.32-7.43) VBG HCO3 (22-26) mmol/L Sodium (135-145) mmol/L Potassium (3.3-5.1) mmol/L Carbon Dioxide (22-29) mmol/L Anion Gap (12-20) BUN (9-16) mg/dL Creatinine (0.5-1.4) mg/dL POC Glucose 178 H (60-115) mg/dL Random Glucose (60-115) mg/dL Lactic Acid (0.5-2.0) mmol/L Lactic Acid F/U @ 2Hr 3.1 H* (0.5-2.0) mmol/L Lactic Acid F/U @ 4Hr (0.5-2.0) mmol/L Calcium (8.4-10.2) mg/dL Total Bilirubin (0.0-1.0) mg/dL AST (5-37) U/L ALT (0-40) U/L Alkaline Phosphatase (39-117) U/L Troponin I High Sens (<3.5-35.0) ng/L B-Natriuretic Peptide (<100) pg/mL Total Protein (6.5-8.0) g/dL Albumin (3.5-5.0) g/dL Lipase (8-78) U/L COVID-19 (JEFF) (Negative) Short CBC 11/12/21 11/13/21 11/13/21 Range/Units 12:43 05:35 06:57 WBC 9.7 9.0 8.4 (4.8-10.8) X10*3/uL Hgb 12.5 L 7.1 L D 7.2 L (14.0-18.0) g/dl Hct 37.7 L 21.2 L D 21.5 L (42.0-52.0) % Plt Count 150 L 56 L D 55 L (160-400) X10*3/uL BMP 11/12/21 11/12/21 11/13/21 12:43 16:37 05:35 Sodium 127 L 132 L 130 L Potassium 5.8 H D 4.4 D 4.5 Chloride 97 103 100 Carbon Dioxide 13 L 14 L 19 L BUN 72 H 62 H 70 H Creatinine 2.54 H 2.12 H 1.80 H Calcium 8.5 D 7.9 L D 7.6 L Liver Function 11/12/21 11/13/21 Range/Units 12:43 05:35 Total Bilirubin 10.8 H 6.1 H (0.0-1.0) mg/dL AST 203 H 95 H (5-37) U/L ALT 113 H 67 H (0-40) U/L Alkaline Phosphatase 2125 H D 1016 H D (39-117) U/L Albumin 2.6 L D 2.6 L (3.5-5.0) g/dL Urine 11/12/21 Range/Units 15:55 Urine Color DK YELLOW Urine Appearance CLEAR Urine pH 5.5 (5.0-8.0) Ur Specific [place] 1.020 (1.005-1.025) Urine Protein TRACE (NEG-TRACE) MG/DL Urine Glucose (UA) NEG (NEG) MG/DL All other labs normal. Assessment and Plan (1) Primary pancreatic adenocarcinoma: Status: Acute (2) COVID-19 virus infection: Status: Acute (3) Failure to thrive in adult: Status: Acute Plan Unfortunate 76-year-old male patient with non operable pancreatic cancer, status post stent placement now with evidence of gastric outlet obstruction with air in the liver noted on CT of the abdomen and pelvis. Suspicion was raised for ischemic bowel although areas indicated by the CT in the sigmoid colon and dinero sverse colon are atypical for ischemic colitis. The watershed area appears well vascularized. Air possibly is explained by the previous pancreatic procedure causing pneumobilia. Patient is abdominal examination is not suggestive of ischemic colitis as well. In either case, the patient is a poor surgical risk and his overall prognosis is very poor. I would not recommend any surgical intervention at this time. Procedures Date of Service Date of Service: 11/13/21
[2021-11-13 11:27] LABS: Glucose, Whole Blood 150 mg/dL (60-115)
--- NOTE | 2021-11-13 11:54 | PM.CCPN ---
Subjective Subjective Date of Service: 11/13/21 Interval History: 76-year-old gentleman history inoperable pancreatic cancer status post CBD stent, chemotherapy, radiation, peritoneal drainage catheter, COVID positive on 11/08/2019 to treated with ?Paxlovid, also BPH and PE, now on Eliquis admitted on 11/12/2021 with weakness and dyspnea. On ER evaluation patient with hypotension poorly responsive to a initial IV fluid resuscitation. Blood cultures growing Gram-negative rods with likely GI source. Started on empiric antibiotics and admitted to intensive care unit. CT abdomen pelvis showing possible concern for ischemia bowel, but lactate is improving, evaluated by General surgery and not requiring intervention at this time. No events overnight. Critical Care Time (minutes): 45 Physical Exam Vital Signs: Vital Signs: Last Vital Signs Temp 97.4 F 11/13/21 08:00 Pulse 76 11/13/21 11:00 Resp 16 11/13/21 11:00 BP 111/60 11/13/21 11:00 Pulse Ox 98 11/13/21 11:00 O2 Del Method Nasal Cannula 11/13/21 11:00 BMI result Body Mass Index 19.0 Const: General: no acute distress, alert and awake Eyes: Sclerae: sclerae normal EOM: EOMs intact bilaterally Neck: Neck: Yes no lymphadenopathy, Yes trachea midline and Yes supple Resp: Effort & Inspection: normal respiratory effort and no respiratory distress Auscultation: clear to auscultation bilaterally Cardio: Rate: regular rate Rhythm: regular rhythm Heart sounds: no gallops, no murmurs and no rubs GI: Palpation (GI): Soft to palpation and Other GI palpation findings present ( Nontender) Auscultation: normal bowel sounds Extrem: General: Yes no pedal edema, No clubbing and No cyanosis Objective Data Labs CBC & Chem 7: 11/13/21 06:57 11/13/21 05:35 Labs: Laboratory Results - last 24 hr 11/12/21 11/12/21 11/12/21 12:43 12:43 12:43 WBC 9.7 RBC 4.61 Hgb 12.5 L Hct 37.7 L MCV 81.8 MCH 27.1 MCHC 33.2 RDW 23.8 H Plt Count 150 L MPV 10.8 Immature Gran % (Auto) 2.6 H Neut % (Auto) 92.8 H Lymph % (Auto) 1.6 L [place] % (Auto) 2.8 Eos % (Auto) 0.1 Baso % (Auto) 0.1 Lymph # (Auto) 0.2 L [place] # (Auto) 0.3 Eos # (Auto) 0.0 Baso # (Auto) 0.0 Abs Immat Gran (auto) 0.25 H Absolute Neuts (auto) 9.0 H Absolute Nucleated RBC 0.000 Nucleated RBC % (auto) 0.0 Neutrophils % (Manual) Band Neutrophils % Lymphocytes % (Manual) Monocytes % (Manual) Metamyelocytes % Abs Neuts (Manual) Lymphocytes # (Manual) Monocytes # (Manual) Metamyelocytes # Toxic Granulation Toxic Vacuolation Dohle Bodies Platelet Estimate Large Platelets Plt Morphology Comment RBC Morphology Hypochromasia Microcytosis Target Cells Schistocytes Smear Tech's Comments VERIFIED VBG pH VBG pCO2 VBG pO2 VBG HCO3 VBG O2 Saturation VBG Base Excess Sodium 127 L Potassium 5.8 H D Chloride 97 Carbon Dioxide 13 L Anion Gap 23 H BUN 72 H Creatinine 2.54 H Estim Creat Clear Calc 16.6 Estimated GFR 25 POC Glucose Random Glucose 84 Lactic Acid Lactic Acid F/U @ 2Hr Lactic Acid F/U @ 4Hr Calcium 8.5 D Phosphorus Magnesium 2.6 Total Bilirubin 10.8 H AST 203 H ALT 113 H Alkaline Phosphatase 2125 H D Troponin I High Sens 438.5 H* B-Natriuretic Peptide Total Protein 6.0 L Albumin 2.6 L D Lipase < 4 L Urine Color Urine Appearance Urine pH Ur Specific [place] Urine Protein Urine Glucose (UA) Urine Ketones Urine Blood Urine Nitrite Ur Leukocyte Esterase Urine RBC Urine WBC Ur Squamous Epith Cells Amorphous Sediment Urine Bacteria Hyaline Casts Granular Casts Urine Mucus Peritoneal WBC Peritoneal RBC Periton Neutrophils Periton Lymphocytes Peritoneal Monocytes Peritoneal Other Cells Peritoneal Tot Protein Peritoneal LDH Peritoneal Glucose COVID-19 (JEFF) COVID-19 Clin Com 11/12/21 11/12/21 11/12/21 12:43 12:46 13:18 WBC RBC Hgb Hct MCV MCH MCHC RDW Plt Count MPV Immature Gran % (Auto) Neut % (Auto) Lymph % (Auto) [place] % (Auto) Eos % (Auto) Baso % (Auto) Lymph # (Auto) [place] # (Auto) Eos # (Auto) Baso # (Auto) Abs Immat Gran (auto) Absolute Neuts (auto) Absolute Nucleated RBC Nucleated RBC % (auto) Neutrophils % (Manual) Band Neutrophils % Lymphocytes % (Manual) Monocytes % (Manual) Metamyelocytes % Abs Neuts (Manual) Lymphocytes # (Manual) Monocytes # (Manual) Metamyelocytes # Toxic Granulation Toxic Vacuolation Dohle Bodies Platelet Estimate Large Platelets Plt Morphology Comment RBC Morphology Hypochromasia Microcytosis Target Cells Schistocytes Smear Tech's Comments VBG pH VBG pCO2 VBG pO2 VBG HCO3 VBG O2 Saturation VBG Base Excess Sodium Potassium Chloride Carbon Dioxide Anion Gap BUN Creatinine Estim Creat Clear Calc Estimated GFR POC Glucose 51 L* Random Glucose Lactic Acid 5.2 H* Lactic Acid F/U @ 2Hr Lactic Acid F/U @ 4Hr Calcium Phosphorus Magnesium Total Bilirubin AST ALT Alkaline Phosphatase Troponin I High Sens B-Natriuretic Peptide Total Protein Albumin Lipase Urine Color Urine Appearance Urine pH Ur Specific [place] Urine Protein Urine Glucose (UA) Urine Ketones Urine Blood Urine Nitrite Ur Leukocyte Esterase Urine RBC Urine WBC Ur Squamous Epith Cells Amorphous Sediment Urine Bacteria Hyaline Casts Granular Casts Urine Mucus Peritoneal WBC Peritoneal RBC Periton Neutrophils Periton Lymphocytes Peritoneal Monocytes Peritoneal Other Cells Peritoneal Tot Protein Peritoneal LDH Peritoneal Glucose COVID-19 (JEFF) Positive A COVID-19 Clin Com See Note 11/12/21 11/12/21 11/12/21 14:19 15:48 15:49 WBC RBC Hgb Hct MCV MCH MCHC RDW Plt Count MPV Immature Gran % (Auto) Neut % (Auto) Lymph % (Auto) [place] % (Auto) Eos % (Auto) Baso % (Auto) Lymph # (Auto) [place] # (Auto) Eos # (Auto) Baso # (Auto) Abs Immat Gran (auto) Absolute Neuts (auto) Absolute Nucleated RBC Nucleated RBC % (auto) Neutrophils % (Manual) Band Neutrophils % Lymphocytes % (Manual) Monocytes % (Manual) Metamyelocytes % Abs Neuts (Manual) Lymphocytes # (Manual) Monocytes # (Manual) Metamyelocytes # Toxic Granulation Toxic Vacuolation Dohle Bodies Platelet Estimate Large Platelets Plt Morphology Comment RBC Morphology Hypochromasia Microcytosis Target Cells Schistocytes Smear Tech's Comments VBG pH VBG pCO2 VBG pO2 VBG HCO3 VBG O2 Saturation VBG Base Excess Sodium Potassium Chloride Carbon Dioxide Anion Gap BUN Creatinine Estim Creat Clear Calc Estimated GFR POC Glucose 55 L* Random Glucose Lactic Acid Lactic Acid F/U @ 2Hr Lactic Acid F/U @ 4Hr Calcium Phosphorus Magnesium Total Bilirubin AST ALT Alkaline Phosphatase Troponin I High Sens B-Natriuretic Peptide Total Protein Albumin Lipase Urine Color Urine Appearance Urine pH Ur Specific [place] Urine Protein Urine Glucose (UA) Urine Ketones Urine Blood Urine Nitrite Ur Leukocyte Esterase Urine RBC Urine WBC Ur Squamous Epith Cells Amorphous Sediment Urine Bacteria Hyaline Casts Granular Casts Urine Mucus Peritoneal WBC 0.523 Peritoneal RBC < 0.002 Periton Neutrophils 36 Periton Lymphocytes 47 Peritoneal Monocytes 12 Peritoneal Other Cells 5 Peritoneal Tot Protein 1.2 Peritoneal LDH 89 Peritoneal Glucose 113 COVID-19 (JEFF) COVID-19 Clin Com 11/12/21 11/12/21 11/12/21 15:55 16:37 16:37 WBC RBC Hgb Hct MCV MCH MCHC RDW Plt Count MPV Immature Gran % (Auto) Neut % (Auto) Lymph % (Auto) [place] % (Auto) Eos % (Auto) Baso % (Auto) Lymph # (Auto) [place] # (Auto) Eos # (Auto) Baso # (Auto) Abs Immat Gran (auto) Absolute Neuts (auto) Absolute Nucleated RBC Nucleated RBC % (auto) Neutrophils % (Manual) Band Neutrophils % Lymphocytes % (Manual) Monocytes % (Manual) Metamyelocytes % Abs Neuts (Manual) Lymphocytes # (Manual) Monocytes # (Manual) Metamyelocytes # Toxic Granulation Toxic Vacuolation Dohle Bodies Platelet Estimate Large Platelets Plt Morphology Comment RBC Morphology Hypochromasia Microcytosis Target Cells Schistocytes Smear Tech's Comments VBG pH VBG pCO2 VBG pO2 VBG HCO3 VBG O2 Saturation VBG Base Excess Sodium 132 L Potassium 4.4 D Chloride 103 Carbon Dioxide 14 L Anion Gap 19 BUN 62 H Creatinine 2.12 H Estim Creat Clear Calc 19.9 Estimated GFR 30 POC Glucose Random Glucose 273 H D Lactic Acid Lactic Acid F/U @ 2Hr Lactic Acid F/U @ 4Hr Calcium 7.9 L D Phosphorus Magnesium Total Bilirubin AST ALT Alkaline Phosphatase Troponin I High Sens 326.6 H* B-Natriuretic Peptide Total Protein Albumin Lipase Urine Color DK YELLOW Urine Appearance CLEAR Urine pH 5.5 Ur Specific [place] 1.020 Urine Protein TRACE Urine Glucose (UA) NEG Urine Ketones 5 Urine Blood TRACE Urine Nitrite NEG Ur Leukocyte Esterase NEG Urine RBC 1-4 Urine WBC 0-2 Ur Squamous Epith Cells 1+ Amorphous Sediment 2+ Urine Bacteria TRACE Hyaline Casts 5-9 Granular Casts 1-4 Urine Mucus TRACE Peritoneal WBC Peritoneal RBC Periton Neutrophils Periton Lymphocytes Peritoneal Monocytes Peritoneal Other Cells Peritoneal Tot Protein Peritoneal LDH Peritoneal Glucose COVID-19 (JEFF) COVID-19 [employer] 11/12/21 11/12/21 11/12/21 16:37 16:37 19:04 WBC RBC Hgb Hct MCV MCH MCHC RDW Plt Count MPV Immature Gran % (Auto) Neut % (Auto) Lymph % (Auto) [place] % (Auto) Eos % (Auto) Baso % (Auto) Lymph # (Auto) [place] # (Auto) Eos # (Auto) Baso # (Auto) Abs Immat Gran (auto) Absolute Neuts (auto) Absolute Nucleated RBC Nucleated RBC % (auto) Neutrophils % (Manual) Band Neutrophils % Lymphocytes % (Manual) Monocytes % (Manual) Metamyelocytes % Abs Neuts (Manual) Lymphocytes # (Manual) Monocytes # (Manual) Metamyelocytes # Toxic Granulation Toxic Vacuolation Dohle Bodies Platelet Estimate Large Platelets Plt Morphology Comment RBC Morphology Hypochromasia Microcytosis Target Cells Schistocytes Smear Tech's Comments VBG pH VBG pCO2 VBG pO2 VBG HCO3 VBG O2 Saturation VBG Base Excess Sodium Potassium Chloride Carbon Dioxide Anion Gap BUN Creatinine Estim Creat Clear Calc Estimated GFR POC Glucose Random Glucose Lactic Acid Lactic Acid F/U @ 2Hr 4.8 H* Lactic Acid F/U @ 4Hr 4.0 H* Calcium Phosphorus Magnesium Total Bilirubin AST ALT Alkaline Phosphatase Troponin I High Sens B-Natriuretic Peptide 732 H Total Protein Albumin Lipase Urine Color Urine Appearance Urine pH Ur Specific [place] Urine Protein Urine Glucose (UA) Urine Ketones Urine Blood Urine Nitrite Ur Leukocyte Esterase Urine RBC Urine WBC Ur Squamous Epith Cells Amorphous Sediment Urine Bacteria Hyaline Casts Granular Casts Urine Mucus Peritoneal WBC Peritoneal RBC Periton Neutrophils Periton Lymphocytes Peritoneal Monocytes Peritoneal Other Cells Peritoneal Tot Protein Peritoneal LDH Peritoneal Glucose COVID-19 (JEFF) COVID-19 Clin Com 11/12/21 11/13/21 11/13/21 21:01 05:34 05:35 WBC 9.0 RBC 2.60 L D Hgb 7.1 L D Hct 21.2 L D MCV 81.5 MCH 27.3 MCHC 33.5 RDW 23.8 H Plt Count 56 L D MPV 10.2 Immature Gran % (Auto) Cancelled Neut % (Auto) Cancelled Lymph % (Auto) Cancelled [place] % (Auto) Cancelled Eos % (Auto) Cancelled Baso % (Auto) Cancelled Lymph # (Auto) Cancelled [place] # (Auto) Cancelled Eos # (Auto) Cancelled Baso # (Auto) Cancelled Abs Immat Gran (auto) Cancelled Absolute Neuts (auto) Cancelled Absolute Nucleated RBC 0.000 Nucleated RBC % (auto) 0.0 Neutrophils % (Manual) 72 Band Neutrophils % 23 H Lymphocytes % (Manual) 1 L Monocytes % (Manual) 3 Metamyelocytes % 1 Abs Neuts (Manual) 8.6 H Lymphocytes # (Manual) 0.1 L Monocytes # (Manual) 0.3 Metamyelocytes # 0.1 Toxic Granulation PRESENT Toxic Vacuolation PRESENT Dohle Bodies PRESENT Platelet Estimate DECREASED Large Platelets PRESENT Plt Morphology Comment NOTED RBC Morphology NOTED Hypochromasia 2+ (15-30) Microcytosis 1+ (5-14) Target Cells 1+ (5-14) Schistocytes 1+ (0-2) Smear Tech's Comments VBG pH 7.47 H VBG pCO2 23 VBG pO2 39 VBG HCO3 17 L VBG O2 Saturation 63.0 VBG Base Excess -5.0 Sodium Potassium Chloride Carbon Dioxide Anion Gap BUN Creatinine Estim Creat Clear Calc Estimated GFR POC Glucose 220 H Random Glucose Lactic Acid Lactic Acid F/U @ 2Hr Lactic Acid F/U @ 4Hr Calcium Phosphorus Magnesium Total Bilirubin AST ALT Alkaline Phosphatase Troponin I High Sens B-Natriuretic Peptide Total Protein Albumin Lipase Urine Color Urine Appearance Urine pH Ur Specific [place] Urine Protein Urine Glucose (UA) Urine Ketones Urine Blood Urine Nitrite Ur Leukocyte Esterase Urine RBC Urine WBC Ur Squamous Epith Cells Amorphous Sediment Urine Bacteria Hyaline Casts Granular Casts Urine Mucus Peritoneal WBC Peritoneal RBC Periton Neutrophils Periton Lymphocytes Peritoneal Monocytes Peritoneal Other Cells Peritoneal Tot Protein Peritoneal LDH Peritoneal Glucose COVID-19 (JEFF) COVID-19 Clin Com 11/13/21 11/13/21 11/13/21 05:35 05:35 06:57 WBC 8.4 RBC 2.61 L Hgb 7.2 L Hct 21.5 L MCV 82.4 MCH 27.6 MCHC 33.5 RDW 23.8 H Plt Count 55 L MPV 10.8 Immature Gran % (Auto) Neut % (Auto) Lymph % (Auto) [place] % (Auto) Eos % (Auto) Baso % (Auto) Lymph # (Auto) [place] # (Auto) Eos # (Auto) Baso # (Auto) Abs Immat Gran (auto) Absolute Neuts (auto) Absolute Nucleated RBC 0.000 Nucleated RBC % (auto) 0.0 Neutrophils % (Manual) Band Neutrophils % Lymphocytes % (Manual) Monocytes % (Manual) Metamyelocytes % Abs Neuts (Manual) Lymphocytes # (Manual) Monocytes # (Manual) Metamyelocytes # Toxic Granulation Toxic Vacuolation Dohle Bodies Platelet Estimate Large Platelets Plt Morphology Comment RBC Morphology Hypochromasia Microcytosis Target Cells Schistocytes Smear Tech's Comments VBG pH VBG pCO2 VBG pO2 VBG HCO3 VBG O2 Saturation VBG Base Excess Sodium 130 L Potassium 4.5 Chloride 100 Carbon Dioxide 19 L Anion Gap 16 BUN 70 H Creatinine 1.80 H Estim Creat Clear Calc 27.1 Estimated GFR 37 POC Glucose Random Glucose 193 H Lactic Acid 3.5 H* Lactic Acid F/U @ 2Hr Lactic Acid F/U @ 4Hr Calcium 7.6 L Phosphorus 3.2 Magnesium 2.2 Total Bilirubin 6.1 H AST 95 H ALT 67 H Alkaline Phosphatase 1016 H D Troponin I High Sens B-Natriuretic Peptide Total Protein 4.4 L D Albumin 2.6 L Lipase Urine Color Urine Appearance Urine pH Ur Specific [place] Urine Protein Urine Glucose (UA) Urine Ketones Urine Blood Urine Nitrite Ur Leukocyte Esterase Urine RBC Urine WBC Ur Squamous Epith Cells Amorphous Sediment Urine Bacteria Hyaline Casts Granular Casts Urine Mucus Peritoneal WBC Peritoneal RBC Periton Neutrophils Periton Lymphocytes Peritoneal Monocytes Peritoneal Other Cells Peritoneal Tot Protein Peritoneal LDH Peritoneal Glucose COVID-19 (JEFF) COVID-19 Clin Com 11/13/21 11/13/21 11/13/21 07:14 07:46 11:23 WBC RBC Hgb Hct MCV MCH MCHC RDW Plt Count MPV Immature Gran % (Auto) Neut % (Auto) Lymph % (Auto) [place] % (Auto) Eos % (Auto) Baso % (Auto) Lymph # (Auto) [place] # (Auto) Eos # (Auto) Baso # (Auto) Abs Immat Gran (auto) Absolute Neuts (auto) Absolute Nucleated RBC Nucleated RBC % (auto) Neutrophils % (Manual) Band Neutrophils % Lymphocytes % (Manual) Monocytes % (Manual) Metamyelocytes % Abs Neuts (Manual) Lymphocytes # (Manual) Monocytes # (Manual) Metamyelocytes # Toxic Granulation Toxic Vacuolation Dohle Bodies Platelet Estimate Large Platelets Plt Morphology Comment RBC Morphology Hypochromasia Microcytosis Target Cells Schistocytes Smear Tech's Comments VBG pH VBG pCO2 VBG pO2 VBG HCO3 VBG O2 Saturation VBG Base Excess Sodium Potassium Chloride Carbon Dioxide Anion Gap BUN Creatinine Estim Creat Clear Calc Estimated GFR POC Glucose 178 H 150 H Random Glucose Lactic Acid Lactic Acid F/U @ 2Hr 3.1 H* Lactic Acid F/U @ 4Hr Calcium Phosphorus Magnesium Total Bilirubin AST ALT Alkaline Phosphatase Troponin I High Sens B-Natriuretic Peptide Total Protein Albumin Lipase Urine Color Urine Appearance Urine pH Ur Specific [place] Urine Protein Urine Glucose (UA) Urine Ketones Urine Blood Urine Nitrite Ur Leukocyte Esterase Urine RBC Urine WBC Ur Squamous Epith Cells Amorphous Sediment Urine Bacteria Hyaline Casts Granular Casts Urine Mucus Peritoneal WBC Peritoneal RBC Periton Neutrophils Periton Lymphocytes Peritoneal Monocytes Peritoneal Other Cells Peritoneal Tot Protein Peritoneal LDH Peritoneal Glucose COVID-19 (JEFF) COVID-19 Clin Com Microbiology Microbiology Results: Microbiology 11/12/21 13:35 Blood - Venous Blood Culture - Preliminary Prelim: GNR Gram Stain only 11/12/21 12:43 Blood - Venous Blood Culture - Preliminary Prelim: GNR Gram Stain only Progress Note: A&P Assessment and plan (1) Gram-negative bacteremia: Status: Acute (2) COVID-19 virus infection: Status: Acute (3) Failure to thrive in adult: Status: Acute (4) Acute kidney injury: Status: Acute (5) Sepsis: Status: Acute (6) Primary pancreatic adenocarcinoma: Status: Acute (7) Pulmonary embolism: Status: Acute (8) Diabetes: Status: Acute Plan Assessment: 76-year-old gentleman with underlying inoperable pancreatic cancer status post chemo/radiation, CBD stent and peritoneal catheter placement admitted with weakness and gram-negative bacteremia with likely GI source. Plan: Neuro: No acute issues. Cardiac: No acute issues. Pulmonary: History of pulmonary emboli, continues on anticoagulation. Renal: No acute issues. Endo: No acute issues. History of diabetes mellitus. GI: Underlying pancreatic cancer. Concern for ischemic bowel on CT abdomen, but lactate is improving - evaluated by General surgery and does not require intervention at this time. ID: Gram-negative bacteremia With likely GI source. Continues on cefepime until cultures finalized. Heme/Onc: No acute issues. Psych: No acute issues. Miscellaneous: No acute issues. Prophylaxis: Eliquis Diet: diabetic Critical care time spent: 45 minutes Quality Stroke Does the patient have a stroke diagnosis?: No VTE Prior VTE?: Yes VTE Risk Level:: Medical - moderate - high VTE Device Contraindication: Treatment Not Indicated VTE Drug Contraindication: N/A - Med Ordered
--- NOTE | 2021-11-13 13:49 | MHC.CM.PN ---
Addendum entered by Caroline Rosado 11/13/21 14:31: POA reviewed and placed in chart. There is a line indicating that son can place patient in a medical facility and be involved in care planning Patient is alert and oriented Patient states that Blossom is his HCP agent. Original Note: CALL TO SON SUE ([phone]) WHO STATES THAT HE IS THE HCP/POA FOR PATIENT EMAIL FOR THIS DRY WALL NAILER GIVEN. ONCE DOCUMENT AND RECEIVED AND REVIEWED, IT WILL BE BROUGHT TO THE UNIT FOR PATIENT'S CHART. SUE STATES THAT ALTHOUGH HIS STEP SISTER BLOSSOM IS ABLE TO BE PRESENT, HE DOES NOT WANT BLOSSOM TO BE INVOLVED IN ANY MEDICAL DECISION MAKING FOR THE PATIENT IF PATIENT IS UNABLE TO MAKE DECISIONS FOR HIMSELF
[2021-11-13] MEDS: Sodium Bicarbonate 8.4% 150 MEQ in Dextrose 5 % 850 ML 50 MEQ IV (14:17)
[2021-11-13 16:30] LABS: Glucose, Whole Blood 153 mg/dL (60-115)
[2021-11-13] MEDS: Calcium Carbonate 750 MG TAB.CHEW PO (20:13)
[2021-11-13 22:35] LABS: Glucose, Whole Blood 136 mg/dL (60-115)
[2021-11-14] VITALS (20 sets, daily range): BP systolic 84–111; BP diastolic 47–65; PULSE 58–81; RESP 13–29; TEMP 35.8–36.3; O2SAT 99–100; BMI 19.5
[2021-11-14] MEDS: Albumin Human 25 % 100 ML IV ×4 (00:07→20:38)
[2021-11-14 05:27] LABS: VBG Base Excess 0.5 mmol/L; VBG HCO3 22 mmol/L (22-26); VBG pCO2 26 mmHg; VBG pH 7.53 (7.32-7.43); VBG pO2 42 mmHg
[2021-11-14 05:32] LABS: Mean Corpuscular HGB Conc 33.7 g/dl (31.0-36.0); Mean Corpuscular Hemoglobin 27.6 pg (27.0-33.0); Mean Corpuscular Volume 81.8 fL (80.0-98.0); Mean Platelet Volume 10.5 fL (9.4-12.4); Red Blood Count 2.25 X10*6/uL (4.60-5.80); Red Cell Distribution Width 23.4 % (11.0-16.0); White Blood Count 3.6 X10*3/uL (4.8-10.8)
[2021-11-14 05:38] LABS: Platelet Count 36 X10*3/uL (160-400)
[2021-11-14 05:39] LABS: Hematocrit 18.4 % (42.0-52.0); Hemoglobin 6.2 g/dl (14.0-18.0)
[2021-11-14 05:50] LABS: Alanine Aminotransferase 48 U/L (0-40); Albumin Level 3.1 g/dL (3.5-5.0); Alkaline Phosphatase 718 U/L (39-117); Anion Gap 13 (12-20); Aspartate Amino Transferase 56 U/L (5-37); Bilirubin Total 4.3 mg/dL (0.0-1.0); Blood Urea Nitrogen 64 mg/dL (9-16); Calcium 8.1 mg/dL (8.4-10.2); Carbon Dioxide 24 mmol/L (22-29); Chloride 96 mmol/L (96-108); Creatinine Clr Calc Pharmacy 38.6; Estimated Glomerular Filt Rate 53; Glucose Random 165 mg/dL (60-115); Magnesium 2.1 mg/dL (1.6-2.6); Phosphorus 2.1 mg/dL (2.7-4.5); Potassium 4.5 mmol/L (3.3-5.1); Sodium 128 mmol/L (135-145); Total Protein 4.6 g/dL (6.5-8.0)
[2021-11-14 05:53] LABS: Venous Blood Gas Refer to POC result
[2021-11-14 05:55] LABS: Band Neutrophils Percent 9 % (3-5); Lymphocytes Absolute Manual 0.3 X10*3/uL (1.2-4.9); Lymphocytes Percent Manual 7 % (20-40); Monocytes Absolute Manual 0.1 X10*3/uL (0.1-1.2); Monocytes Percent Manual 2 % (2-11); Neutrophils Absolute Manual 3.3 X10*3/uL (2.0-8.3); Neutrophils Percent Manual 82 % (45-73)
[2021-11-14 05:56] LABS: Dohle Bodies PRESENT; Hypochromasia 2+ (15-30) /OIF; Microcytosis 1+ (5-14) /OIF; Platelet Estimate DECREASED (NORMAL); Platelet Morphology Comment NORMAL; RBC Morphology NOTED; Target Cells 1+ (5-14) /OIF
[2021-11-14 05:57] LABS: Toxic Granulation PRESENT; Toxic Vacuolation PRESENT
--- NOTE | 2021-11-14 06:04 | PC.NURSE ---
CARE ASSUMED 23:15...AWAKE..ALERT..ORIENTED X3...RESPIRATIONS EASY ON ROOM AIR...SBP 90'S...PER REPORT BP GOALS = SBP>80 & MAP>60...ASYMPTOMATIC...BICARB DRIP AT 50 CC/HR OVERNIGHT...VERMA ARUN URINE...OOB X1 TO BEDSIDE COMMODE..PASSED FORMED BROWN STOOL...BICARB DRIP HELD THIS AM PER ICU TERMITE CONTROL SERVICER....AM H/H= 6.2/18.4...ICU TERMITE CONTROL SERVICER AWARE...FOR T&S AND PRBC X1 PER TERMITE CONTROL SERVICER
[2021-11-14 07:49] LABS: Glucose, Whole Blood 136 mg/dL (60-115)
[2021-11-14] MEDS: Apixaban 2.5 MG TABLET PO ×2 (08:18→20:39)
[2021-11-14] MEDS: cefEPime HCl 1 GM in 0.9 % Sodium Chloride 50 ML IV ×2 (08:18→20:36)
[2021-11-14] MEDS: Sodium,Potassium Phosphates POWD.PACK 2 PACKET PO (08:56)
--- NOTE | 2021-11-14 09:50 | MHC.CLN ---
PT IS SEVERELY MALNOURISHED PT TRIGGERS FOR 37% SIGNIFICANT WT LOSS X 1 YEAR WITH CHRONIC POOR PO WITH INCREASED NUTRITION NEEDS R/T CHEMO AND RAD TX DIET RX: 2200DM-APPROPRIATE RECOMMEND ADDING ENSURE TID TO INCREASE KCALS/PROTEIN SUPP TO PROVIDE 1050KCALS, 60G PROTEIN MONITOR PO INTAKE CLOSELY SEE ALSO FULL CLINICAL NUTRITION ASSESSMENT
--- NOTE | 2021-11-14 10:21 | MHC.CM.PN ---
Addendum entered by Genie Herrera 11/14/21 11:31: Calls placed to [facility] and [facility]: No HCP on file at either site. L/M for PCP office to call back with findings. Will reapproach pt to complete new proxy on 11/15 Original Note: Pt in ICU and unable to fully participate in dc planning discussion d/t medical condition. Information obtained from EMR and pt's dtr Blossom via phone. Per Blossom, pt resides with her step brother who assists with transportation and some care needs. Pt has [facility] for every other day drain care but no other services. He has a walker, commode and urinal. Per Blossom, pt is very independent and not accepting of his diagnosis and prognosis. He has declined STR placement and is not willing to consider Hospice care at this time. He is also still driving per Blossom. Blossom reports family dynamic issues but claims she is the pt's HCP although she doesn't have a copy. Will call [facility] to inquire on one on record. At this time, d/c plan is for a return to home with existing [facility] and family support. PCP: Dr. Spaulding, Vax x 4
--- NOTE | 2021-11-14 11:29 | PM.CCPN ---
Subjective Subjective Date of Service: 11/14/21 Interval History: 76-year-old gentleman history inoperable pancreatic cancer status post CBD stent, chemotherapy, radiation, peritoneal drainage catheter, COVID positive on 11/08/2019 to treated with ?Paxlovid, also BPH and PE, now on Eliquis admitted on 11/12/2021 with weakness and dyspnea. On ER evaluation patient with hypotension poorly responsive to a initial IV fluid resuscitation. Blood cultures growing Gram-negative rods with likely GI source. Started on empiric antibiotics and admitted to intensive care unit. CT abdomen pelvis showing possible concern for ischemia bowel, but lactate is improving, evaluated by General surgery and not requiring intervention at this time. No events overnight. Critical Care Time (minutes): 0 Physical Exam Vital Signs: Vital Signs: Last Vital Signs Temp 97.4 F 11/14/21 10:50 Pulse 61 11/14/21 11:00 Resp 18 11/14/21 11:00 BP 107/55 L 11/14/21 11:00 Pulse Ox 100 11/14/21 11:00 O2 Del Method 11/14/21 11:00 BMI result Body Mass Index 19.5 Const: General: no acute distress, alert and awake Eyes: Sclerae: sclerae normal EOM: EOMs intact bilaterally Neck: Neck: Yes no lymphadenopathy, Yes trachea midline and Yes supple Resp: Effort & Inspection: normal respiratory effort and no respiratory distress Auscultation: clear to auscultation bilaterally Cardio: Rate: regular rate Rhythm: regular rhythm Heart sounds: no gallops, no murmurs and no rubs GI: Palpation (GI): Soft to palpation and Other GI palpation findings present ( Nontender) Auscultation: normal bowel sounds Extrem: General: Yes no pedal edema, No clubbing and No cyanosis Objective Data Labs CBC & Chem 7: 11/14/21 05:18 11/14/21 05:18 Labs: Laboratory Results - last 24 hr 11/13/21 11/13/21 11/14/21 16:26 22:31 05:18 WBC 3.6 L RBC 2.25 L Hgb 6.2 L* Hct 18.4 L* MCV 81.8 MCH 27.6 MCHC 33.7 RDW 23.4 H Plt Count 36 L D MPV 10.5 Immature Gran % (Auto) Cancelled Neut % (Auto) Cancelled Lymph % (Auto) Cancelled [place] % (Auto) Cancelled Eos % (Auto) Cancelled Baso % (Auto) Cancelled Lymph # (Auto) Cancelled [place] # (Auto) Cancelled Eos # (Auto) Cancelled Baso # (Auto) Cancelled Abs Immat Gran (auto) Cancelled Absolute Neuts (auto) Cancelled Absolute Nucleated RBC 0.000 Nucleated RBC % (auto) 0.0 Neutrophils % (Manual) 82 H Band Neutrophils % 9 H Lymphocytes % (Manual) 7 L Monocytes % (Manual) 2 Abs Neuts (Manual) 3.3 Lymphocytes # (Manual) 0.3 L Monocytes # (Manual) 0.1 Toxic Granulation PRESENT Toxic Vacuolation PRESENT Dohle Bodies PRESENT Platelet Estimate DECREASED Plt Morphology Comment NORMAL RBC Morphology NOTED Hypochromasia 2+ (15-30) Microcytosis 1+ (5-14) Target Cells 1+ (5-14) VBG pH VBG pCO2 VBG pO2 VBG HCO3 VBG O2 Saturation VBG Base Excess Sodium Potassium Chloride Carbon Dioxide Anion Gap BUN Creatinine Estim Creat Clear Calc Estimated GFR POC Glucose 153 H 136 H Random Glucose Calcium Phosphorus Magnesium Total Bilirubin AST ALT Alkaline Phosphatase Total Protein Albumin Blood Type Antibody Screen Crossmatch 11/14/21 11/14/21 11/14/21 05:18 05:23 06:27 WBC RBC Hgb Hct MCV MCH MCHC RDW Plt Count MPV Immature Gran % (Auto) Neut % (Auto) Lymph % (Auto) [place] % (Auto) Eos % (Auto) Baso % (Auto) Lymph # (Auto) [place] # (Auto) Eos # (Auto) Baso # (Auto) Abs Immat Gran (auto) Absolute Neuts (auto) Absolute Nucleated RBC Nucleated RBC % (auto) Neutrophils % (Manual) Band Neutrophils % Lymphocytes % (Manual) Monocytes % (Manual) Abs Neuts (Manual) Lymphocytes # (Manual) Monocytes # (Manual) Toxic Granulation Toxic Vacuolation Dohle Bodies Platelet Estimate Plt Morphology Comment RBC Morphology Hypochromasia Microcytosis Target Cells VBG pH 7.53 H VBG pCO2 26 VBG pO2 42 VBG HCO3 22 VBG O2 Saturation 70.0 VBG Base Excess 0.5 Sodium 128 L Potassium 4.5 Chloride 96 Carbon Dioxide 24 Anion Gap 13 BUN 64 H Creatinine 1.30 Estim Creat Clear Calc 38.6 Estimated GFR 53 POC Glucose Random Glucose 165 H Calcium 8.1 L D Phosphorus 2.1 L Magnesium 2.1 Total Bilirubin 4.3 H AST 56 H ALT 48 H Alkaline Phosphatase 718 H D Total Protein 4.6 L Albumin 3.1 L Blood Type B Positive Antibody Screen NEGATIVE Crossmatch See Detail 11/14/21 07:44 WBC RBC Hgb Hct MCV MCH MCHC RDW Plt Count MPV Immature Gran % (Auto) Neut % (Auto) Lymph % (Auto) [place] % (Auto) Eos % (Auto) Baso % (Auto) Lymph # (Auto) [place] # (Auto) Eos # (Auto) Baso # (Auto) Abs Immat Gran (auto) Absolute Neuts (auto) Absolute Nucleated RBC Nucleated RBC % (auto) Neutrophils % (Manual) Band Neutrophils % Lymphocytes % (Manual) Monocytes % (Manual) Abs Neuts (Manual) Lymphocytes # (Manual) Monocytes # (Manual) Toxic Granulation Toxic Vacuolation Dohle Bodies Platelet Estimate Plt Morphology Comment RBC Morphology Hypochromasia Microcytosis Target Cells VBG pH VBG pCO2 VBG pO2 VBG HCO3 VBG O2 Saturation VBG Base Excess Sodium Potassium Chloride Carbon Dioxide Anion Gap BUN Creatinine Estim Creat Clear Calc Estimated GFR POC Glucose 136 H Random Glucose Calcium Phosphorus Magnesium Total Bilirubin AST ALT Alkaline Phosphatase Total Protein Albumin Blood Type Antibody Screen Crossmatch Microbiology Microbiology Results: Microbiology 11/12/21 13:35 Blood - Venous Blood Culture - Preliminary Gram negative maricruz 11/12/21 12:43 Blood - Venous Blood Culture - Preliminary Gram negative maricruz Progress Note: A&P Assessment and plan (1) Diabetes: Status: Acute (2) Pulmonary embolism: Status: Acute (3) Gram-negative bacteremia: Status: Acute (4) Primary pancreatic adenocarcinoma: Status: Acute (5) COVID-19 virus infection: Status: Acute (6) Acute kidney injury: Status: Acute (7) Failure to thrive in adult: Status: Acute (8) Severe protein-calorie malnutrition: Status: Acute Plan Assessment: 76-year-old gentleman with underlying inoperable pancreatic cancer status post chemo/radiation, CBD stent and peritoneal catheter placement admitted with weakness and gram-negative bacteremia with likely GI source. Plan: Neuro: No acute issues. Cardiac: No acute issues. Pulmonary: History of pulmonary emboli, continues on anticoagulation. Renal: Acute renal failure, likely secondary to gram-negative sepsis improving. Non oliguric. Continue to monitor renal indices and urine output. Endo: No acute issues. History of diabetes mellitus. GI: Underlying pancreatic cancer. Concern for ischemic bowel on CT abdomen, but lactate is improving - evaluated by General surgery and does not require intervention at this time. ID: Gram-negative bacteremia with likely GI source. Continues on cefepime until cultures finalized. Heme/Onc: No acute issues. Psych: No acute issues. Miscellaneous: No acute issues. Prophylaxis: Eliquis Diet: diabetic Quality Stroke Does the patient have a stroke diagnosis?: No VTE Prior VTE?: Yes VTE Risk Level:: Medical - moderate - high VTE Device Contraindication: Treatment Not Indicated VTE Drug Contraindication: N/A - Med Ordered
[2021-11-14 11:39] LABS: Glucose, Whole Blood 197 mg/dL (60-115)
[2021-11-14] MEDS: Insulin Lispro 100 UNIT/ML 3 ML VIAL SUBCUT (11:50)
--- NOTE | 2021-11-14 13:58 | PM.EVENT ---
Documented by User: Lyly Kim NP 11/14/21 14:09 Event Note Date of Service: 11/14/21 Event Note: Discussed case with Dr. Tapia for sign out. Initially admitted to ICU for hypotension. GNR Hypotension CBD stent with peritoneal cath PATRICK Malignant ascites pancreatic ca Documented by User: Rg Lopez MD 11/16/21 08:46 Event Note Date of Service: 11/16/21
[2021-11-14 14:55] LABS: Hematocrit 25.9 % (42.0-52.0); Hemoglobin 8.4 g/dl (14.0-18.0); Mean Corpuscular HGB Conc 32.4 g/dl (31.0-36.0); Mean Corpuscular Hemoglobin 27.5 pg (27.0-33.0); Mean Corpuscular Volume 84.9 fL (80.0-98.0); Mean Platelet Volume 10.9 fL (9.4-12.4); Red Blood Count 3.05 X10*6/uL (4.60-5.80); Red Cell Distribution Width 22.6 % (11.0-16.0); White Blood Count 9.3 X10*3/uL (4.8-10.8)
[2021-11-14 14:56] LABS: Platelet Count 50 X10*3/uL (160-400)
[2021-11-14 15:10] LABS: Anion Gap 16 (12-20); Blood Urea Nitrogen 53 mg/dL (9-16); Calcium 8.3 mg/dL (8.4-10.2); Carbon Dioxide 19 mmol/L (22-29); Chloride 98 mmol/L (96-108); Creatinine Clr Calc Pharmacy 43.3; Estimated Glomerular Filt Rate > 60; Glucose Random 184 mg/dL (60-115); Potassium 5.1 mmol/L (3.3-5.1); Sodium 128 mmol/L (135-145)
[2021-11-14 16:28] LABS: Glucose, Whole Blood 119 mg/dL (60-115)
--- NOTE | 2021-11-14 17:19 | PC.NURSE ---
Pt Received 1 Unit of RBC's and 2/4 doses of scheduled albumin. pt peritoneal is drained every other day; catheter is set to drain for a total of 1000cc; however it is draining slowly. After albumin pt's BP dropped to 84/48, [employer] Julio made aware; order to place NS @100cc.
--- NOTE | 2021-11-14 18:21 | PC.NURSE ---
Per [employer]CH[employer], give 1L of NS @ 100, and Mirlax PRN
[2021-11-14] MEDS: polyethylene glycoL 3350 17 GM POWD.PACK PO (18:43)
[2021-11-14] MEDS: 0.9 % Sodium Chloride 1,000 ML 100 ML IVCONT (18:43)
[2021-11-14] MEDS: Docusate Sodium 100 MG CAPSULE PO (20:39)
[2021-11-14 21:00] LABS: Glucose, Whole Blood 137 mg/dL (60-115)
[2021-11-15] VITALS (7 sets, daily range): BP systolic 90–119; BP diastolic 56–73; PULSE 74–102; RESP 15–23; TEMP 36.2–37.3; O2SAT 98–100
[2021-11-15] MEDS: Albumin Human 25 % 100 ML IV (02:16)
[2021-11-15] MEDS: 0.9 % Sodium Chloride 1,000 ML 100 ML IVCONT ×2 (05:48→22:01)
[2021-11-15 07:02] LABS: Hematocrit 24.8 % (42.0-52.0); Hemoglobin 8.3 g/dl (14.0-18.0); Mean Corpuscular HGB Conc 33.5 g/dl (31.0-36.0); Mean Corpuscular Hemoglobin 27.7 pg (27.0-33.0); Mean Corpuscular Volume 82.7 fL (80.0-98.0); Mean Platelet Volume 11.1 fL (9.4-12.4); White Blood Count 3.5 X10*3/uL (4.8-10.8)
[2021-11-15 07:04] LABS: Platelet Count 45 X10*3/uL (160-400)
[2021-11-15 07:26] LABS: Band Neutrophils Percent 3 % (3-5); Eosinophils Percent Manual 1 % (0-4); Lymphocytes Absolute Manual 0.1 X10*3/uL (1.2-4.9); Lymphocytes Percent Manual 2 % (20-40); Monocytes Absolute Manual 0.1 X10*3/uL (0.1-1.2); Monocytes Percent Manual 3 % (2-11); Neutrophils Absolute Manual 3.3 X10*3/uL (2.0-8.3); Neutrophils Percent Manual 91 % (45-73)
[2021-11-15 07:28] LABS: Dohle Bodies PRESENT; Hypochromasia 1+ (5-14) /OIF; Platelet Estimate DECREASED (NORMAL); Platelet Morphology Comment NORMAL; RBC Morphology NOTED; Target Cells 1+ (5-14) /OIF
[2021-11-15 07:32] LABS: Alanine Aminotransferase 36 U/L (0-40); Albumin Level 3.6 g/dL (3.5-5.0); Alkaline Phosphatase 679 U/L (39-117); Anion Gap 13 (12-20); Aspartate Amino Transferase 39 U/L (5-37); Bilirubin Total 4.3 mg/dL (0.0-1.0); Blood Urea Nitrogen 45 mg/dL (9-16); Calcium 8.2 mg/dL (8.4-10.2); Carbon Dioxide 23 mmol/L (22-29); Chloride 99 mmol/L (96-108); Creatinine Clr Calc Pharmacy 57.8; Estimated Glomerular Filt Rate > 60; Glucose Random 157 mg/dL (60-115); Phosphorus 1.5 mg/dL (2.7-4.5); Potassium 4.2 mmol/L (3.3-5.1); Sodium 131 mmol/L (135-145); Total Protein 4.9 g/dL (6.5-8.0)
[2021-11-15 07:53] LABS: Glucose, Whole Blood 238 mg/dL (60-115)
[2021-11-15] MEDS: Insulin Lispro 100 UNIT/ML 3 ML VIAL SUBCUT ×2 (07:59→21:49)
[2021-11-15] MEDS: Apixaban 2.5 MG TABLET PO ×2 (08:00→21:49)
[2021-11-15] MEDS: Docusate Sodium 100 MG CAPSULE PO ×2 (08:00→21:49)
[2021-11-15] MEDS: cefEPime HCl 1 GM in 0.9 % Sodium Chloride 50 ML IV (08:00)
[2021-11-15] MEDS: Sodium,Potassium Phosphates POWD.PACK 1 PACKET PO ×4 (10:02→21:49)
--- NOTE | 2021-11-15 10:27 | P.CDIC_ITS ---
CDI Concurrent Query Documentation Clarification: PHYSICIAN'S DOCUMENTATION REQUEST Date of Query: 11/15/21 1028 Patient Name: Td Jorgensen Admit Date: 11/12/21 Dear Doctor, A review of the medical record indicates additional documentation may be needed. Please review below and update the documentation accordingly. Clinical Indicators: The diagnosis of [Diagnosis] was documented on [date] but is not consistently noted in subsequent documentation. Risk Factors/Clinical Indicators/Treatments ICU notes: Assessment/plan: Pulmonary embolism, acute. Plan: History of Pulmonary embolism, continues on anticoagulation. Please clarify the following: Pulmonary Embolism - * [Diagnosis] was present on admission and is still being monitored, evaluated, or treated * [Diagnosis] History of Pulmonary embolism * [Diagnosis] is still a likely, suspected, probable diagnosis * Other (please specify) * Unable to determine Use of terms such as suspected, likely, concern for, or probable (associated with a specific diagnosis that is being evaluated, monitored, or treated as if it exists) are acceptable and can be coded in the inpatient setting, when documented at the time of discharge. Thank you, Adriana Estrada [facility], CDIS Extension: [phone] Please use your independent medical judgment in providing your response. THIS QUERY IS PART OF THE PERMANENT MEDICAL RECORD Other Diagnosis: See note
[2021-11-15 11:29] LABS: Glucose, Whole Blood 104 mg/dL (60-115)
--- NOTE | 2021-11-15 12:19 | HO.PM.IMPN ---
Subjective Subjective Date of Service: 11/22/21 Review of Systems Follow up ICU tx Klebsiella bacteremia, hypotension Feeling better today, still with cough Physical Exam Vital Signs: Vital Signs: Last Vital Signs Temp 97.2 F 11/15/21 11:43 Pulse 81 11/15/21 11:43 Resp 18 11/15/21 11:43 BP 112/71 11/15/21 11:43 Pulse Ox 99 11/15/21 11:43 O2 Del Method 11/15/21 11:43 BMI result Body Mass Index 19.5 Appearing in no acute distress, thin and frail lung sounds rhonchi heart regular rate rhythm, clear S1, S2 positive bowel sounds, abdomen is soft, nontender neuro patient is alert x3, no focal deficits Objective Data Active Medications Apixaban (Apixaban 2.5 Mg Tablet) 2.5 mg PO BID [facility] Last Admin: 11/15/21 08:00 Dose: 2.5 mg Documented By: JANE Calcium Carbonate (Calcium Carbonate 750 Mg Tab.Chew) 750 mg PO Q4H PRN PRN Reason: Heartburn Last Admin: 11/13/21 20:13 Dose: 750 mg Documented By: SACHI Docusate Sodium (Docusate Sodium 100 Mg Capsule) 100 mg PO BID [facility] Last Admin: 11/15/21 08:00 Dose: 100 mg Documented By: JANE Cefepime HCl 1 gm/ Sodium (Chloride) 50 mls @ 100 mls/hr IV Q12H [facility] Last Infusion: 11/15/21 08:36 Dose: 0 mls/hr Documented By: JANE Sodium Chloride (Ns) 1,000 mls @ 100 mls/hr IVCONT .Q10H [facility] Last Admin: 11/15/21 05:48 Dose: 100 mls/hr Documented By: JOSE RAFAEL Insulin Human Lispro (Insulin Lispro 100 Unit/Ml 3 Ml Vial) 0 unit SUBCUT QIDACHS [facility]; Protocol Last Admin: 11/15/21 11:46 Dose: Not Given Documented By: JANE Non-Admin Reason: No Insulin Coverage Pharmacy Consult (Consult Rx Perform Med Rec) 1 each MISCELLANE ONCE PRN PRN Reason: Consult order Polyethylene Glycol (Polyethylene Glycol 3350 17 Gm Powd.Pack) 17 gm PO DAILY PRN PRN Reason: Constipation Last Admin: 11/14/21 18:43 Dose: 17 gm Documented By: JAIME Potassium Phos/Sodium Phos (Sodium,Potassium Phosphates Powd.Pack) 1 packet PO QID [facility] Last Admin: 11/15/21 10:02 Dose: 1 packet Documented By: JANE Labs CBC & Chem 7: 11/15/21 06:29 11/17/21 06:50 Labs: Laboratory Results - last 24 hr 11/14/21 11/14/21 11/14/21 05:18 06:27 14:40 MCV 84.9 MCH 27.5 MCHC 32.4 RDW 22.6 H Plt Count 50 L D MPV 10.9 Immature Gran % (Auto) Neut % (Auto) Lymph % (Auto) [place] % (Auto) Eos % (Auto) Baso % (Auto) Lymph # (Auto) [place] # (Auto) Eos # (Auto) Baso # (Auto) Abs Immat Gran (auto) Absolute Neuts (auto) Absolute Nucleated RBC 0.000 Nucleated RBC % (auto) 0.0 Neutrophils % (Manual) Band Neutrophils % Lymphocytes % (Manual) Monocytes % (Manual) Eosinophils % (Manual) Abs Neuts (Manual) Lymphocytes # (Manual) Monocytes # (Manual) Dohle Bodies Platelet Estimate Plt Morphology Comment RBC Morphology Hypochromasia Target Cells Smear Path Review SEE NOTE Anion Gap Estim Creat Clear Calc Estimated GFR POC Glucose Random Glucose Calcium Phosphorus Magnesium Total Bilirubin AST ALT Alkaline Phosphatase Total Protein Albumin Crossmatch See Detail 11/14/21 11/14/21 11/14/21 14:40 16:24 20:55 MCV MCH MCHC RDW Plt Count MPV Immature Gran % (Auto) Neut % (Auto) Lymph % (Auto) [place] % (Auto) Eos % (Auto) Baso % (Auto) Lymph # (Auto) [place] # (Auto) Eos # (Auto) Baso # (Auto) Abs Immat Gran (auto) Absolute Neuts (auto) Absolute Nucleated RBC Nucleated RBC % (auto) Neutrophils % (Manual) Band Neutrophils % Lymphocytes % (Manual) Monocytes % (Manual) Eosinophils % (Manual) Abs Neuts (Manual) Lymphocytes # (Manual) Monocytes # (Manual) Dohle Bodies Platelet Estimate Plt Morphology Comment RBC Morphology Hypochromasia Target Cells Smear Path Review Anion Gap 16 Estim Creat Clear Calc 43.3 Estimated GFR > 60 POC Glucose 119 H 137 H Random Glucose 184 H Calcium 8.3 L Phosphorus Magnesium Total Bilirubin AST ALT Alkaline Phosphatase Total Protein Albumin Crossmatch 11/15/21 11/15/21 11/15/21 06:29 06:29 07:41 MCV 82.7 MCH 27.7 MCHC 33.5 RDW 22.0 H Plt Count 45 L MPV 11.1 Immature Gran % (Auto) Cancelled Neut % (Auto) Cancelled Lymph % (Auto) Cancelled [place] % (Auto) Cancelled Eos % (Auto) Cancelled Baso % (Auto) Cancelled Lymph # (Auto) Cancelled [place] # (Auto) Cancelled Eos # (Auto) Cancelled Baso # (Auto) Cancelled Abs Immat Gran (auto) Cancelled Absolute Neuts (auto) Cancelled Absolute Nucleated RBC 0.000 Nucleated RBC % (auto) 0.0 Neutrophils % (Manual) 91 H Band Neutrophils % 3 Lymphocytes % (Manual) 2 L Monocytes % (Manual) 3 Eosinophils % (Manual) 1 Abs Neuts (Manual) 3.3 Lymphocytes # (Manual) 0.1 L Monocytes # (Manual) 0.1 Dohle Bodies PRESENT Platelet Estimate DECREASED Plt Morphology Comment NORMAL RBC Morphology NOTED Hypochromasia 1+ (5-14) Target Cells 1+ (5-14) Smear Path Review Anion Gap 13 Estim Creat Clear Calc 57.8 Estimated GFR > 60 POC Glucose 238 H Random Glucose 157 H Calcium 8.2 L Phosphorus 1.5 L Magnesium 2.0 Total Bilirubin 4.3 H AST 39 H ALT 36 Alkaline Phosphatase 679 H Total Protein 4.9 L Albumin 3.6 Crossmatch 11/15/21 11:24 MCV MCH MCHC RDW Plt Count MPV Immature Gran % (Auto) Neut % (Auto) Lymph % (Auto) [place] % (Auto) Eos % (Auto) Baso % (Auto) Lymph # (Auto) [place] # (Auto) Eos # (Auto) Baso # (Auto) Abs Immat Gran (auto) Absolute Neuts (auto) Absolute Nucleated RBC Nucleated RBC % (auto) Neutrophils % (Manual) Band Neutrophils % Lymphocytes % (Manual) Monocytes % (Manual) Eosinophils % (Manual) Abs Neuts (Manual) Lymphocytes # (Manual) Monocytes # (Manual) Dohle Bodies Platelet Estimate Plt Morphology Comment RBC Morphology Hypochromasia Target Cells Smear Path Review Anion Gap Estim Creat Clear Calc Estimated GFR POC Glucose 104 Random Glucose Calcium Phosphorus Magnesium Total Bilirubin AST ALT Alkaline Phosphatase Total Protein Albumin Crossmatch Microbiology Microbiology Results: Microbiology 11/12/21 13:35 Blood Culture - Final Blood - Venous Klebsiella pneumoniae 11/12/21 12:43 Blood Culture - Final Blood - Venous Klebsiella pneumoniae Assessment and Plan (1) Severe protein-calorie malnutrition: Status: Acute Plan 76-year-old gentleman history inoperable pancreatic cancer status post CBD stent, chemotherapy, radiation, peritoneal drainage catheter, COVID positive on 11/08/2019 to treated with ?Paxlovid, also BPH and PE, now on Eliquis admitted on 11/12/2021 with weakness and dyspnea.? On ER evaluation patient with hypotension poorly responsive to a initial? IV fluid resuscitation.? Blood cultures growing Gram-negative rods with likely GI source.? Started on empiric antibiotics and admitted to intensive care unit. CT abdomen pelvis showing possible concern for ischemia bowel, but lactate is improving, evaluated by General surgery and not requiring intervention at this time. Tx to medical floor 11/14/21 GNR. Klebsiella On cefepime Id consult for further antibiotic management Hyponatremia. Likely secondary to hypovolemia Continue IV fluids Follow BMP Hypophosphatemia Neutra-Phos added Hypotension. Treated in the ICU with IV fluid resuscitation Stable, continue IV fluids PATRICK. 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 Lopez Full code continued hospitalization for treatment of hypotension and GNR bacteremia. ID consult pending for abx management. Quality Stroke Does the patient have a stroke diagnosis?: No VTE Prior VTE?: Yes VTE Risk Level:: Medical - moderate - high VTE Device Contraindication: Treatment Not Indicated VTE Drug Contraindication: N/A - Med Ordered
--- NOTE | 2021-11-15 14:29 | W.PM.IDCN ---
History of Present Illness Data of Consult Service Date: 11/15/21 Requesting physician: Rg Lopez Primary Care Provider: Zackary Spaulding MD HPI Reason for consult: bacteremia,Klebsiella He presents with weakness and fatigue. He has hypotension as well as chills. He has negative urinalysis. He has inoperable pancreatic cancer and biliary stent. He has Klebsiella bacteremia. Review of Systems Review of Systems: Yes all other systems are reviewed and are negative PMFSH Past Medical History Medical History BPH (benign prostatic hyperplasia) Hypertension Pancreatic adenocarcinoma Pancreatic cancer Family History Family History Mother No problems noted. Family history: reviewed and not pertinent Surgical History Surgical History History of left knee replacement Social History Social History Household Members: Children Household Members Other:: Son Housing: House Do you presently have visiting nurse or other home services: Yes Alcohol intake: never Patient Tobacco Use Status: Former Tobacco user Tobacco use type: Cigarette Smoked in Last 30 Days: No Use of substances other than those prescribed or required for medical reasons: No Currently Displaying Signs/Symptoms of Drug Intoxication Withdrawal: No Have you been hit, kicked, punched, or otherwise hurt by someone within the past year? If so, by whom?: No Do you feel safe in your current relationship?: No Current Relationship Is there a partner from a previous relationship who is making you feel unsafe now?: No Are you made to feel afraid or neglected: No Spiritual Healthcare Practices: N/A Worship Healthcare Practices: Hoahaoism Cultural Healthcare Practices: N/A Advance Directives: No Advance Directives Information Provided: No Do you have thoughts of harming others: None Do you have a plan to hurt others: No Plan Recently lost weight without trying: Unsure How much weight loss: Not applicable Eating poorly because of decreased appetite: Yes Nutrition screen score: 3 Nutrition Risks: Poor intake 0-25% >4 days Poor oral hygiene: No service: No Current occupational status: retired Meds Allergies Allergy/AdvReac Type Severity Reaction Status Date / Time amoxicillin [From AUGMENTIN] Allergy Severe UNKNOWN Verified 09/01/20 11:47 clavulanic acid Allergy Severe UNKNOWN Verified 09/01/20 11:47 [From AUGMENTIN] Active Medications: Current Medications Apixaban (Apixaban 2.5 Mg Tablet) 2.5 mg PO BID [facility] Last Admin: 11/15/21 08:00 Dose: 2.5 mg Calcium Carbonate (Calcium Carbonate 750 Mg Tab.Chew) 750 mg PO Q4H PRN PRN Reason: Heartburn Last Admin: 11/13/21 20:13 Dose: 750 mg Docusate Sodium (Docusate Sodium 100 Mg Capsule) 100 mg PO BID [facility] Last Admin: 11/15/21 08:00 Dose: 100 mg Cefepime HCl 1 gm/ Sodium (Chloride) 50 mls @ 100 mls/hr IV Q12H [facility] Last Infusion: 11/15/21 08:36 Dose: Infused Sodium Chloride (Ns) 1,000 mls @ 100 mls/hr IVCONT .Q10H [facility] Last Admin: 11/15/21 05:48 Dose: 100 mls/hr Insulin Human Lispro (Insulin Lispro 100 Unit/Ml 3 Ml Vial) 0 unit SUBCUT QIDACHS [facility]; Protocol Last Admin: 11/15/21 11:46 Dose: Not Given Pharmacy Consult (Consult Rx Perform Med Rec) 1 each MISCELLANE ONCE PRN PRN Reason: Consult order Polyethylene Glycol (Polyethylene Glycol 3350 17 Gm Powd.Pack) 17 gm PO DAILY PRN PRN Reason: Constipation Last Admin: 11/14/21 18:43 Dose: 17 gm Potassium Phos/Sodium Phos (Sodium,Potassium Phosphates Powd.Pack) 1 packet PO QID [facility] Last Admin: 11/15/21 14:26 Dose: 1 packet Home Medications Medication Instructions Recorded Confirmed Last Taken Type amlodipine 10 mg tablet 10 mg PO DAILY 11/12/21 11/14/21 Unknown History apixaban 5 mg tablet (Eliquis) 1 tab PO BID 11/12/21 11/12/21 11/11/21 History furosemide 40 mg tablet 1 tab PO DAILY 11/12/21 11/14/21 Unknown History spironolactone 50 mg tablet 1 tab PO DAILY 11/12/21 11/12/21 Unknown History Physical Exam Vital Signs: Vital Signs: Last Vital Signs Temp 97.2 F 11/15/21 11:43 Pulse 81 11/15/21 11:43 Resp 18 11/15/21 11:43 BP 112/71 11/15/21 11:43 Pulse Ox 99 11/15/21 11:43 O2 Del Method 11/15/21 11:43 BMI result Body Mass Index 19.5 Const: General: cooperative Eyes: General: appearance normal, both eyes and all related structures Resp: Effort & Inspection: normal respiratory effort Cardio: Rate: regular rate Rhythm: regular rhythm GI: Palpation (GI): Soft to palpation and nontender Skin: General skin exam: no rashes or lesions noted Extrem: General: Yes normal to inspection Results Labs CBC & Chem 7: 11/15/21 06:29 11/15/21 06:29 Labs: Short CBC 11/14/21 11/15/21 Range/Units 14:40 06:29 WBC 9.3 3.5 L (4.8-10.8) X10*3/uL Hgb 8.4 L D 8.3 L (14.0-18.0) g/dl Hct 25.9 L D 24.8 L (42.0-52.0) % Plt Count 50 L D 45 L (160-400) X10*3/uL BMP 11/14/21 11/15/21 14:40 06:29 Sodium 128 L 131 L Potassium 5.1 4.2 Chloride 98 99 Carbon Dioxide 19 L 23 BUN 53 H 45 H Creatinine 1.16 0.87 Calcium 8.3 L 8.2 L Liver Function 11/15/21 Range/Units 06:29 Total Bilirubin 4.3 H (0.0-1.0) mg/dL AST 39 H (5-37) U/L ALT 36 (0-40) U/L Alkaline Phosphatase 679 H (39-117) U/L Albumin 3.6 (3.5-5.0) g/dL Microbiology Microbiology Results: Microbiology 11/12/21 13:35 Blood - Venous Blood Culture - Final Klebsiella pneumoniae 11/12/21 12:43 Blood - Venous Blood Culture - Final Klebsiella pneumoniae Assessment and Plan (1) Gram-negative bacteremia: Status: Acute He has probable GI source of bacteremia with pancreatic or biliary source He has had stent so concern over integrity of stent with growing malignancy (2) Primary pancreatic adenocarcinoma: Status: Acute Plan Would give Ceftriaxone and flagyl ,po when improved for 14 days but may likely recur as is incurable. See if there is any area to stent or switch stent position
[2021-11-15] MEDS: metroNIDAZOLE/NS 500 MG/100 ML PIGGYBACK 100 MG IV ×2 (15:10→22:00)
[2021-11-15 16:08] LABS: Glucose, Whole Blood 130 mg/dL (60-115)
[2021-11-15] MEDS: cefTRIAXone sodium 1 GM in 0.9 % Sodium Chloride 50 ML IV (16:25)
[2021-11-15] MEDS: Calcium Carbonate 750 MG TAB.CHEW PO ×2 (17:34→21:49)
[2021-11-15 19:23] LABS: Glucose, Whole Blood 197 mg/dL (60-115)
[2021-11-16] VITALS (7 sets, daily range): BP systolic 83–116; BP diastolic 57–89; PULSE 59–86; RESP 15–20; TEMP 36.7–37; O2SAT 97–100
[2021-11-16] MEDS: metroNIDAZOLE/NS 500 MG/100 ML PIGGYBACK 100 MG IV ×3 (06:04→20:59)
[2021-11-16] MEDS: Acetaminophen 325 MG TABLET 650 MG PO ×2 (06:04→20:58)
[2021-11-16 08:44] LABS: Glucose, Whole Blood 159 mg/dL (60-115)
--- NOTE | 2021-11-16 09:04 | MHC.CLN ---
F/U PT IS SEVERELY MALNOURISHED SEE FULL CLINICAL NUTRITION ASSESSMENT DATED 11/14/21 DIET RX: 2200DM-APPROPRIATE PT RECEIVING ENSURE TID TO INCREASE KCALS/PROTEIN PROVIDES 1050KCALS, 60G PROTEIN PO INTAKE FAIR TO GOOD CONTINUE TO MONITOR PO INTAKE CLOSELY
[2021-11-16] MEDS: Insulin Lispro 100 UNIT/ML 3 ML VIAL SUBCUT (09:42)
[2021-11-16] MEDS: Docusate Sodium 100 MG CAPSULE PO ×2 (09:43→20:58)
[2021-11-16] MEDS: Sodium,Potassium Phosphates POWD.PACK 1 PACKET PO (09:43)
[2021-11-16] MEDS: Apixaban 2.5 MG TABLET PO ×2 (09:43→20:58)
[2021-11-16] MEDS: 0.9 % Sodium Chloride 1,000 ML 100 ML IVCONT (09:44)
--- NOTE | 2021-11-16 11:15 | HO.PM.IMPN ---
Subjective Subjective Date of Service: 11/16/21 Interval History: No acute complaints, tolerating diet, no acute issues overnight, denies fever, chills, bp soft but stable, peritoneal catheter functioning well 2 L drained today. Review of Systems [employer] no headache no dizziness CVS no chest pain, no palpitation GI no nausea, no vomiting Portillo catheter for urinary retention Review of Systems: Yes all other systems are reviewed and are negative Physical Exam Vital Signs: Vital Signs: Last Vital Signs Temp 98.5 F 11/16/21 08:00 Pulse 82 11/16/21 08:00 Resp 20 11/16/21 08:00 BP 111/71 11/16/21 08:00 Pulse Ox 98 11/16/21 08:00 O2 Del Method 11/16/21 08:00 BMI result Body Mass Index 19.5 Const: Other: General cachectic, resting in bed, awake alert no distress Neck supple no JVD. CVS regular rate rhythm, Respiratory lungs clear to auscultation, no respiratory distress, no wheeze, no rhonchi. Gastrointestinal abdomen soft, nontender, bowel sounds audible, no guarding , no rigidity, clear yellow drainage from peritoneal catheter Extremities no edema. Neuro nonfocal Skin no rash Portillo clear urine Objective Data Active Medications Acetaminophen (Acetaminophen 325 Mg Tablet) 650 mg PO Q8H PRN PRN Reason: Pain, Severe (Pain Scale 7-10) Last Admin: 11/16/21 06:04 Dose: 650 mg Documented By: RAYMUNDO Apixaban (Apixaban 2.5 Mg Tablet) 2.5 mg PO BID [facility] Last Admin: 11/16/21 09:43 Dose: 2.5 mg Documented By: KARI Calcium Carbonate (Calcium Carbonate 750 Mg Tab.Chew) 750 mg PO Q4H PRN PRN Reason: Heartburn Last Admin: 11/15/21 21:49 Dose: 750 mg Documented By: RAYMUNDO Docusate Sodium (Docusate Sodium 100 Mg Capsule) 100 mg PO BID [facility] Last Admin: 11/16/21 09:43 Dose: 100 mg Documented By: KARI Sodium Chloride (Ns) 1,000 mls @ 100 mls/hr IVCONT .Q10H [facility] Last Admin: 11/16/21 09:44 Dose: 100 mls/hr Documented By: KARI Ceftriaxone Sodium 1 gm/ (Sodium Chloride) 50 mls @ 100 mls/hr IV Q24H [facility] Last Infusion: 11/15/21 16:59 Dose: 0 mls/hr Documented By: JANE Metronidazole (Flagyl) 500 mg in 100 mls @ 100 mls/hr IV Q8H [facility] Last Infusion: 11/16/21 08:02 Dose: 0 mls/hr Documented By: KARI Insulin Human Lispro (Insulin Lispro 100 Unit/Ml 3 Ml Vial) 0 unit SUBCUT QIDACHS [facility]; Protocol Last Admin: 11/16/21 09:42 Dose: 2 unit Documented By: KARI Pharmacy Consult (Consult Rx Perform Med Rec) 1 each MISCELLANE ONCE PRN PRN Reason: Consult order Polyethylene Glycol (Polyethylene Glycol 3350 17 Gm Powd.Pack) 17 gm PO DAILY PRN PRN Reason: Constipation Last Admin: 11/14/21 18:43 Dose: 17 gm Documented By: JAIME Potassium Phos/Sodium Phos (Sodium,Potassium Phosphates Powd.Pack) 1 packet PO QID [facility] Last Admin: 11/16/21 09:43 Dose: 1 packet Documented By: KARI Labs CBC & Chem 7: 11/15/21 06:29 11/15/21 06:29 Labs: Laboratory Results - last 24 hr 11/15/21 11/15/21 11/15/21 11:24 15:55 19:10 POC Glucose 104 130 H 197 H 11/16/21 08:35 POC Glucose 159 H Microbiology Microbiology Results: Microbiology 11/12/21 13:35 Blood Culture - Final Blood - Venous Klebsiella pneumoniae 11/12/21 12:43 Blood Culture - Final Blood - Venous Klebsiella pneumoniae Assessment and Plan (1) Severe protein-calorie malnutrition: Status: Acute (2) Diabetes: Status: Acute (3) Pulmonary embolism: Status: Acute (4) Gram-negative bacteremia: Status: Acute (5) Primary pancreatic adenocarcinoma: Status: Acute (6) COVID-19 virus infection: Status: Acute (7) Hypophosphatemia: Status: Acute Plan 76-year-old gentleman history inoperable pancreatic cancer status post CBD stent, chemotherapy, radiation, peritoneal drainage catheter, COVID positive on 11/08/2019 to treated with ?Paxlovid, also BPH and PE, now on Eliquis admitted on 11/12/2021 with weakness and dyspnea.? On ER evaluation patient with hypotension poorly responsive to a initial? IV fluid resuscitation.? Blood cultures growing Gram-negative rods with likely GI source.? Started on empiric antibiotics and admitted to intensive care unit. CT abdomen pelvis showing possible concern for ischemia bowel, but lactate is improving, evaluated by General surgery and not requiring intervention at this time. Tx to medical floor 11/14/21 Klebsiella pneumonia bacteremia On IV ceftriaxone and Flagyl seen by Dr. Soliz she recommend by mouth ceftriaxone and Flagyl for 14 days, likely GI source, will consult Dr. Blakely for any further intervention. Hyponatremia. sodium improved to 131 ,Follow BMP Hypophosphatemia phosphorous 1.5, continue Neutra-Phos / dietary supplements Hypotension. soft blood pressures but stable, DC IV fluids PATRICK. resolved, was Likely secondary to hypoperfusion COVID positive asymptomatic,diagnosed with COVID-19 6 days prior to admission, and received ? COVID infusion?? as per patient at [facility],? has been vaccinated and boosted Pfizer vaccine. Malignant ascites with history of pancreatic cancer (5cm pancreatic mass noted on CT scan) status post CBD stent with peritoneal cath ( unable to do Whipple procedure) continue to drain every other day up to 2 L Chronic PE continue Eliquis DVT prophylaxis with Eliquis Full code need continued inpatient hospitalization for treatment of GNR bacteremia with IV antibiotics awaiting GI input regarding further intervention, obtain PT eval for safe discharge plan. Quality Stroke Does the patient have a stroke diagnosis?: No VTE Prior VTE?: Yes VTE Risk Level:: Medical - moderate - high VTE Device Contraindication: Treatment Not Indicated VTE Drug Contraindication: N/A - Med Ordered
[2021-11-16 11:33] LABS: Glucose, Whole Blood 150 mg/dL (60-115)
--- NOTE | 2021-11-16 13:17 | MHC.CM.PN ---
Male 76 DX FFT r/t CA Per MD rounds no dc today. A PT evaluation is pending. DP home with resumption of [facility]. Patients daughter will provide transportation.
[2021-11-16] MEDS: cefTRIAXone sodium 1 GM in 0.9 % Sodium Chloride 50 ML IV (14:59)
[2021-11-16] MEDS: Sodium,Potassium Phosphates POWD.PACK 2 PACKET PO ×2 (15:00→20:59)
--- NOTE | 2021-11-16 16:05 | PC.NURSE ---
Isolation precautions maintained. Call everett within reach. safety and fall precautions maintained. MD at bedside during assessment and while abd being drained via pt's catheter. Dressing was applied. poc maintained, insulin administered as ordered.
[2021-11-16 16:18] LABS: Glucose, Whole Blood 85 mg/dL (60-115)
[2021-11-16 21:00] LABS: Glucose, Whole Blood 102 mg/dL (60-115)
[2021-11-17] VITALS (8 sets, daily range): BP systolic 100–131; BP diastolic 60–75; PULSE 72–97; RESP 14–20; TEMP 36.2–37.2; O2SAT 96–100; BMI 21.1
--- NOTE | 2021-11-17 02:03 | CONS_ITS ---
DATE OF SERVICE: 11/16/2021 REFERRING PHYSICIAN: Jessica Freed MD REASON FOR CONSULTATION: Klebsiella pneumoniae bacteremia. HISTORY OF PRESENT ILLNESS: The patient is a pleasant 76-year-old man who was admitted to the hospital on November 12 with weakness, fatigue, and shortness of breath. He was recently diagnosed with a COVID-19 infection and the day before admission, received IV antiviral medication at [facility]. He was in the emergency room after that with the above complaints and was hypotensive on admission and had elevations of his liver tests with a total serum bilirubin of 10.8 on admission. He does have a history of pancreatic cancer and has had a metal stent placed and his most recent bilirubin prior to this hospitalization was 0.6. CT scanning was obtained, which was reviewed. This was interpreted as showing portal venous air, but actually appears to be more consistent with the finding of pneumobilia indicating his stent is patent. He did grow klebsiella from his blood. His liver tests have actually improved significantly from admission, suggesting there may have been a partial transient obstruction of the stent. He has also had problems with cirrhosis and ascites and gets periodic drainage of his ascites from a peritoneal drainage catheter, which was placed after he had refractory ascites that required recurrent large-volume paracentesis. He generally feels quite poorly and reports his appetite has been diminished and that he has lost over 100 pounds of body weight. He is followed through the [facility] by Dr. Barrow for his pancreatic head cancer. PAST MEDICAL HISTORY: 1. Pancreatic head cancer, status post chemotherapy and radiation with biliary stent placement. 2. Ascites with drain placement as above. 3. Pulmonary embolism. 4. Hypertension. 5. Diabetes. 6. BPH. 7. Laparotomy for a possible Whipple procedure, but the cancer was found to be unresectable. 8. Portal vein thrombosis. 9. Colon polyps. CURRENT MEDICATIONS: Current medication list is reviewed in the chart. ALLERGIES: AUGMENTIN. FAMILY HISTORY: This is reviewed with the patient and is noncontributory. SOCIAL HISTORY: There is no current tobacco, alcohol, or substance abuse. REVIEW OF SYSTEMS: SKIN: No pruritus. HEENT: Negative. CARDIOPULMONARY: He denies shortness of breath or chest pain. GASTROINTESTINAL: As above. GENITOURINARY: Negative. NEUROPSYCHIATRIC: Negative. PHYSICAL EXAMINATION: GENERAL: Shows a cachectic elderly male. VITAL SIGNS: Reviewed in the electronic medical record and are stable. SKIN: Anicteric. HEENT: Shows no scleral icterus. NECK: Without lymphadenopathy or thyromegaly. LUNGS: Clear. HEART: Shows regular rate and rhythm. S1, S2. No murmur. ABDOMEN: Soft. There does appear to be some residual fluid. Drainage catheter appears intact. There is a nontender umbilical hernia. EXTREMITIES: Without edema. LABORATORY DATA: Reviewed. CT scan is reviewed with Dr. Delgado of Radiology and shows the findings consistent with pneumobilia. There was a question on admission of possible ischemic colitis, but his clinical picture did not fit this diagnosis. He was seen in consultation by Dr. Huynh. IMPRESSION AND PLAN: Klebsiella sepsis. This may have resulted from a transient stent obstruction; however, does clinically appear patent and his bilirubin is improving. His elevated liver function tests could in part be related to his recent treatment and COVID infection. As his LFTs are improving, I would not recommend any intervention. There was a question of whether his stomach was showing a relative gastric outlet obstruction as it was dilated on his CAT scan, but clinically, he appears to be tolerating his diet well as his appetite is quite poor, which is likely related to his underlying pancreatic cancer. Thanks for asking me to see him. I will follow him in the hospital with you. MD SYDNI Jean/LOLA / [phone]
[2021-11-17] MEDS: metroNIDAZOLE/NS 500 MG/100 ML PIGGYBACK 100 MG IV ×3 (07:27→22:10)
[2021-11-17 07:38] LABS: Anion Gap 13 (12-20); Blood Urea Nitrogen 39 mg/dL (9-16); Carbon Dioxide 20 mmol/L (22-29); Chloride 103 mmol/L (96-108); Creatinine Clr Calc Pharmacy 70.4; Estimated Glomerular Filt Rate > 60; Glucose Random 94 mg/dL (60-115); Phosphorus 3.3 mg/dL (2.7-4.5); Potassium 4.4 mmol/L (3.3-5.1); Sodium 132 mmol/L (135-145)
[2021-11-17] MEDS: Docusate Sodium 100 MG CAPSULE PO ×2 (09:21→20:55)
[2021-11-17] MEDS: Apixaban 2.5 MG TABLET PO ×2 (09:21→20:55)
[2021-11-17] MEDS: Acetaminophen 325 MG TABLET 650 MG PO (09:21)
[2021-11-17] MEDS: Sodium,Potassium Phosphates POWD.PACK 2 PACKET PO ×3 (09:22→20:55)
[2021-11-17 11:53] LABS: Glucose, Whole Blood 121 mg/dL (60-115)
--- NOTE | 2021-11-17 15:34 | MHC.CM.PN ---
IMM 11/17/21 Male FTT PT is recommending STR. The Patient refuses to go to STR. Spoke with Patients son and dtr. They understand that the Pt is refusing to go to a facility. Per Pts dtr , he is willing to have PT at home. He will receive Supervision 25/12. His son has agreed to provide 25/12 care. He will provide transportation home at 5pm today.
--- NOTE | 2021-11-17 15:41 | P.DS_ITS ---
DS: Providers Provider Date of Service: 11/18/21 Date of admission: 11/12/21 17:39 Primary care physician: Zackary Spaulding MD Consults: 11/13/21 08:38 Consult to General Surgery Routine Consulting Provider: [facility] [place] [facility] Reason for consultation: ? bowel ischemia Has provider been notified: No 11/15/21 08:41 Consult to Infectious Diseases Routine Consulting Provider: Steffanie Soliz Reason for consultation: bacteremia Has provider been notified: No 11/15/21 18:00 Consult to Hematology / Oncology Routine Consulting Provider: Sandrine Craig Reason for consultation: pancreatic mass Has provider been notified: No 11/16/21 11:16 Consult to Gastroenterology Routine Consulting Provider: Charbel Blakely Reason for consultation: high output from biliary stent Has provider been notified: No DS: Diagnosis Discharge Diagnosis (1) Severe protein-calorie malnutrition: Status: Acute (2) Diabetes: Status: Acute (3) Pulmonary embolism: Status: Acute (4) Gram-negative bacteremia: Status: Acute (5) Primary pancreatic adenocarcinoma: Status: Acute (6) COVID-19 virus infection: Status: Acute (7) Hypophosphatemia: Status: Acute DS: Summary Hospital Course Hospital Course: Chief Complaint: Weakness The patient is a 76-year-old male with history of hypertension, hyperlipidemia, type 2 diabetes, pancreatic adenocarcinoma status post chemotherapy and radiation (last January 2021) s/p Aspira Pleural drain, BPH,? and pulmonary embolism? ( on apixaban) who presented to the emergency room with complaints of weakness, fatigue, and shortness of breath.? According to to patient he was diagnosed with COVID-19 6 days ago? and received ? COVID infusion?? a [facility],? he states he has been vaccinated and boosted Pfizer vaccine. ? In the emergency room,? the patient was noted to be hypotensive 70/42 that responded to fluids other vital signs stable.? ? Laboratory data? significant for? sodium 127, potassium 5.8, serum bicarb 13, and anion gap 23, BUN 72, creatinine 2.54, glucose 51,? total bilirubin 10.8, AST 203, ALT 113, alk phos 2125, troponin sensitivity 438, albumin 2.6, lactic 5.2 Imaging:? Chest xray: No acute findings? Patient will be admitted to the ICU for? hypotension? Hospital course 76-year-old gentleman history inoperable pancreatic cancer status post CBD stent, chemotherapy, radiation, peritoneal drainage catheter, COVID positive on 11/08/2019 to treated with ?Paxlovid, also BPH and PE, now on Eliquis admitted on 11/12/2021 with weakness and dyspnea. On ER evaluation patient with hypotension poorly responsive to a initial? IV fluid resuscitation therefore admitted to intensive care unit,? Blood cultures grew Klebsiella pneumoniae likely GI source, with history of pancreatic cancer and biliary stent with elevated LFTs, CT abdomen pelvis showed possible concern for ischemic bowel, evaluated by General surgery and they did not feel patient has bowel ischemia lactic acid improved, patient placed on IV ceftriaxone and Flagyl and subsequently transferred to medical floor where patient continue to make clinical progress LFTs trending down patient is tolerating diet with no nausea vomiting, patient evaluated by Dr. Soliz from Infectious Disease she recommend 14 days of Ceftin and Flagyl, patient evaluated by Gastroenterology and felt that maybe patient has transient biliary stent obstruction causing bacteremia and elevation in LFTs per since the patient is clinically improving with LFTs trending down no further intervention is recommended, will discharge patient home on by mouth antibiotic, patient seen by physical therapy, they recommended short-term rehab however patient declined rehab, patient lives at home with son who is willing to provide 247 care at home. Portillo catheter removed patient voiding with no difficulty. Patient noted to have 2 bowel movements this morning not watery likely due to antibiotics and concomitant use of stool softeners. discharge diagnosis sepsis due to Klebsiella pneumonia bacteremia likely due to transient biliary stent obstruction, sepsis resolved, recommend to take by mouth Ceftin and Flagyl for 8 more days Hyponatremia.? sodium improved to 131 Hypophosphatemia Resolved patient received Neutra-Phos supplements PATRICK. resolved, was? Likely secondary to hypoperfusion COVID positive asymptomatic,diagnosed with COVID-19 6 days? prior to admission, and received treatment at [facility],? has been vaccinated and boosted Pfizer vaccine. Malignant ascites with history of pancreatic cancer (5cm pancreatic mass noted on CT scan) status post CBD stent with peritoneal cath ( unable to do Whipple procedure) continue to drain every other day up to 2 L, will hold diuretics due to low blood pressure Chronic PE? continue Eliquis. hypotension recommend to hold all home antihypertensive medication diabetes mellitus hold metformin since presented with PATRICK and lactic acidosis blood sugars stable Time Spent with Patient Time attestation: Total time spent providing and/or coordinating discharge services: Discharge coordination time: Greater than 30 minutes Quality: Safe Use of Opioids Does Pt have an Active Cancer Diagnosis on the Problem List?: No Quality: Stroke Does the patient have a stroke diagnosis?: No Physical Exam Vital Signs: Vital Signs: Last Vital Signs Temp 97.7 F 11/17/21 11:41 Pulse 93 11/17/21 11:41 Resp 16 11/17/21 11:41 BP 106/68 11/17/21 11:41 Pulse Ox 100 11/17/21 11:41 O2 Del Method 11/17/21 11:41 BMI result Body Mass Index 21.1 Const: Other: General? cachectic , awake alert no d istress? Neck supp le no JVD. CVS? re gular rate rhythm, Respiratory lungs clear to ausculta tion, no respirato ry distress, no wh eeze, no rhonchi. Gastrointestinal a bdomen soft, nonte nder, distended, b owel sounds audibl e, no guarding , n o rigidity, clear yellow drainage fr om? peritoneal cat heter Extremities no edema. Neuro no nfocal Skin no jose h DS: Data Data Completed and Pending Labs on day of discharge: Laboratory Results - last 24 hr 11/16/21 11/16/21 11/17/21 16:13 20:54 06:50 Sodium 132 L Potassium 4.4 Chloride 103 Carbon Dioxide 20 L Anion Gap 13 BUN 39 H Creatinine 0.77 Estim Creat Clear Calc 70.4 Estimated GFR > 60 POC Glucose 85 102 Random Glucose 94 D Calcium 8.0 L Phosphorus 3.3 11/17/21 11:43 Sodium Potassium Chloride Carbon Dioxide Anion Gap BUN Creatinine Estim Creat Clear Calc Estimated GFR POC Glucose 121 H Random Glucose Calcium Phosphorus Discharge Plan Discharge Patient Disposition: Home Health Service Discharge Diagnosis: Klebsiella pneumonia bacteremia hypotension pancreatic CA transaminitis acute kidney injury Referrals: [facility] [Outside] - 1 Week Zackary Spaulding MD [Primary Care Provider] - 1 Week Physician,Unknown J [Physician] - 1 Week Discharge Medications: New Eliquis 2.5 mg Tablet 2.5 mg PO BID Qty: 60 0RF metronidazole 500 mg tablet 500 mg PO BID Qty: 20 0RF cefuroxime axetil 500 mg tablet 500 mg PO Q12H Qty: 20 0RF Discontinued metformin 500 mg tablet 500 mg PO BID Qty: 180 8RF furosemide 40 mg tablet 1 tab PO DAILY spironolactone 50 mg tablet 1 tab PO DAILY Eliquis 5 mg tablet 1 tab PO BID amlodipine 10 mg tablet 10 mg PO DAILY Discharge Orders: Discharge Order (Routine); Ordered 11/18/21 Ordered By: Jessica Freed Diet: diabetic diet Activity on Discharge: As tolerated Stand Alone Forms: Patient Portal Discharge page Care Plan Goals: hypotension blood pressure medications has been stopped, resume low-dose diuretics, if noted to have worsening leg edema and blood pressure allows Klebsiella bacteremia take 8 days of Flagyl and Ceftin ( discard 2 days of medicine.) continue peritoneal drainage as before Health Concerns: diabetes mellitus blood sugars stable hold metformin Plan of Treatment: outpatient follow-up with primary care physician and Oncology in 1-2 weeks Assessment: as per discharge summary
[2021-11-17] MEDS: cefTRIAXone sodium 1 GM in 0.9 % Sodium Chloride 50 ML IV (16:33)
[2021-11-17 16:37] LABS: Glucose, Whole Blood 130 mg/dL (60-115)
--- NOTE | 2021-11-17 16:39 | P.PNIM_ITS ---
Subjective Subjective Date of Service: 11/18/21 Interval History: feels better this morning offers no acute complaints, no prior history of urinary retention, Portillo catheter with clear urine. Review of Systems Review of Systems: Yes all other systems are reviewed and are negative Physical Exam Vital Signs: Vital Signs: Last Vital Signs Temp 97.7 F 11/17/21 11:41 Pulse 93 11/17/21 11:41 Resp 16 11/17/21 11:41 BP 106/68 11/17/21 11:41 Pulse Ox 100 11/17/21 11:41 O2 Del Method 11/17/21 11:41 BMI result Body Mass Index 21.1 Const: Other: General? cachectic , resting in bed, awake alert no dis tress? Neck supple no JVD. CVS? regu lar rate rhythm, R espiratory lungs c lear to auscultati on, no respiratory distress, no whee ze, no rhonchi. Ga strointestinal abd omen soft, Disten ded, nontender, patrick wel sounds audible , no guarding , no rigidity, clear y ellow drainage fro m? peritoneal cath eter Extremities n o edema. Neuro non focal Skin no rash Portillo clear urine Objective Data Active Medications Acetaminophen (Acetaminophen 325 Mg Tablet) 650 mg PO Q8H PRN PRN Reason: Pain, Severe (Pain Scale 7-10) Last Admin: 11/17/21 09:21 Dose: 650 mg Documented By: SIMI Apixaban (Apixaban 2.5 Mg Tablet) 2.5 mg PO BID [facility] Last Admin: 11/17/21 09:21 Dose: 2.5 mg Documented By: SIMI Calcium Carbonate (Calcium Carbonate 750 Mg Tab.Chew) 750 mg PO Q4H PRN PRN Reason: Heartburn Last Admin: 11/15/21 21:49 Dose: 750 mg Documented By: RAYMUNDO Docusate Sodium (Docusate Sodium 100 Mg Capsule) 100 mg PO BID [facility] Last Admin: 11/17/21 09:21 Dose: 100 mg Documented By: SIMI Ceftriaxone Sodium 1 gm/ (Sodium Chloride) 50 mls @ 100 mls/hr IV Q24H [facility] Last Admin: 11/17/21 16:33 Dose: 100 mls/hr Documented By: IDA Metronidazole (Flagyl) 500 mg in 100 mls @ 100 mls/hr IV Q8H [facility] Last Infusion: 11/17/21 16:38 Dose: 0 mls/hr Documented By: IDA Insulin Human Lispro (Insulin Lispro 100 Unit/Ml 3 Ml Vial) 0 unit SUBCUT QIDACHS [facility]; Protocol Last Admin: 11/17/21 11:51 Dose: Not Given Documented By: SIMI Non-Admin Reason: No Insulin Coverage Pharmacy Consult (Consult Rx Perform Med Rec) 1 each MISCELLANE ONCE PRN PRN Reason: Consult order Polyethylene Glycol (Polyethylene Glycol 3350 17 Gm Powd.Pack) 17 gm PO DAILY PRN PRN Reason: Constipation Last Admin: 11/14/21 18:43 Dose: 17 gm Documented By: JAIME Potassium Phos/Sodium Phos (Sodium,Potassium Phosphates Powd.Pack) 2 packet PO TID [facility] Last Admin: 11/17/21 15:21 Dose: 2 packet Documented By: SIMI Labs CBC & Chem 7: 11/15/21 06:29 11/17/21 06:50 Labs: Laboratory Results - last 24 hr 11/16/21 11/17/21 11/17/21 20:54 06:50 11:43 Anion Gap 13 Estim Creat Clear Calc 70.4 Estimated GFR > 60 POC Glucose 102 121 H Random Glucose 94 D Calcium 8.0 L Phosphorus 3.3 11/17/21 16:29 Anion Gap Estim Creat Clear Calc Estimated GFR POC Glucose 130 H Random Glucose Calcium Phosphorus Assessment and Plan (1) Severe protein-calorie malnutrition: Status: Acute (2) Diabetes: Status: Acute (3) Pulmonary embolism: Status: Acute (4) Gram-negative bacteremia: Status: Acute (5) Primary pancreatic adenocarcinoma: Status: Acute (6) COVID-19 virus infection: Status: Acute (7) Hypophosphatemia: Status: Acute Plan 76-year-old gentleman history inoperable pancreatic cancer status post CBD stent, chemotherapy, radiation, peritoneal drainage catheter, COVID positive on 11/08/2019 to treated with ?Paxlovid, also BPH and PE, now on Eliquis admitted on 11/12/2021 with weakness and dyspnea.? On ER evaluation patient with hypotension poorly responsive to a initial? IV fluid resuscitation.? Blood cultures growing Gram-negative rods with likely GI source.? Started on empiric antibiotics and admitted to intensive care unit. CT abdomen pelvis showing possible concern for ischemia bowel, but lactate is improving, evaluated by General surgery and not requiring intervention at this time. Tx to medical floor 11/14/21 Klebsiella pneumonia sepsis likely from obstructed biliary stent / sepsis resolved On IV ceftriaxone and Flagyl seen by Dr. Soliz she recommend by mouth ceftriaxone and Flagyl for 14 days, likely GI source patient seen by Dr. Mendenhall he felt that likely patient had transient obstruction of biliary stent causing bacteremia but since LFTs attending down he did not recommend further intervention. DC Portillo catheter give voiding trial patient had no issues with retention in the past Hyponatremia. sodium improved to 132 ,Follow BMP Hypophosphatemia phosphorous Normalized will DC supplement Hypotension. soft blood pressures but stable, all home medications are held. PATRICK. resolved, was Likely secondary to hypoperfusion COVID positive asymptomatic,diagnosed with COVID-19 6 days prior to admission, and received ? COVID treatment at [facility],? has been vaccinated and boosted Pfizer vaccine. Malignant ascites with history of pancreatic cancer (5cm pancreatic mass noted on CT scan) status post CBD stent with peritoneal cath ( unable to do Whipple procedure) continue to drain every other day up to 2 L Chronic PE continue Eliquis DVT prophylaxis with Eliquis Full code disposition spoke with patient's son Alhaji [phone] since patient declined short- term rehab son is agreeable to provide 247 care at home therefore will make arrangement to discharge patient home with [facility] and PT services need continued inpatient hospitalization for treatment of GNR bacteremia with IV antibiotics and management of Portillo catheter. Quality Stroke Does the patient have a stroke diagnosis?: No VTE Prior VTE?: Yes VTE Risk Level:: Medical - moderate - high VTE Device Contraindication: Treatment Not Indicated VTE Drug Contraindication: N/A - Med Ordered
[2021-11-17 20:28] LABS: Glucose, Whole Blood 139 mg/dL (60-115)
[2021-11-17] MEDS: Calcium Carbonate 750 MG TAB.CHEW PO (20:58)
[2021-11-18 04:00] VITALS: BP 116/61; PULSE 79; RESP 16; TEMP 36.9
[2021-11-18] MEDS: metroNIDAZOLE/NS 500 MG/100 ML PIGGYBACK 100 MG IV (05:36)
[2021-11-18 07:20] LABS: Glucose, Whole Blood 132 mg/dL (60-115)
[2021-11-18 07:30] VITALS: BP 120/63; PULSE 79; RESP 18; TEMP 36.9; O2SAT 98
[2021-11-18] MEDS: Apixaban 2.5 MG TABLET PO (11:08)
--- NOTE | 2021-11-18 11:17 | MHC.CM.PN ---
IMM 11/17/21 Male 76 DX FTT Patient is discharged to home with resumption of services with [facility]. His son will pick him up between 11-12pm today.
--- NOTE | 2021-11-18 11:55 | W.MHC.F2F ---
Service Date Service Date: 11/18/21 Encounter Date of encounter: 11/18/21 Reasons for Services Signs and symptoms assessed: Klebsiella pneumonia bacteremia, hyponatremia, hypotension, with underlying in operable pancreatic cancer with generalized weakness, cachexia generalized weakness Reason for mcfp: medication management Reason for physical therapy: home safety and mobility and gait/transfer training Homebound: Leaving the home is medically contraindicated at this time without the asist of a device and/or another person due th the listed conditions above and below. Reason homebound: weakness related to hospital stay Certification: Based on the above findings, I certify that this patient is confined to the home and needs intermittent mcfp care, physical therapy and/or speech therapy, or continues to need occupational therapy. The patient is under my care, and I have initiated the establishment of the plan of care. The patient will be followed by a physician who will periodically review the plan of care.
[2021-11-18 12:55] LABS: CDiff Gene PCR NEGATIVE (Negative)
[2021-11-21 09:44] LABS: Glucose, Whole Blood 55 mg/dL (60-115)
== END 2021-11-18 12:58 | disposition home health service (06) | DRG 871 ==
LOC: HO.ED 17:31 → HO.EDOVER 17:44 → HO.ICU 19:20 → HO.IMC 11-15 02:18
PROVIDERS: Family Medicine; Nurse Practitioner Acute Care; Nurse Practitioner Family; Registered Nurse Community Health; Admitting Provider Internal Medicine Pulmonary Disease; Emergency Provider Emergency Medicine; PCP Internal Medicine; Visit Provider Hospitalist
DX: A41.50 Gram-negative sepsis, unspecified (principal); U07.1 COVID-19; E43 Unspecified severe protein-calorie malnutrition; K65.2 Spontaneous bacterial peritonitis; C25.9 Malignant neoplasm of pancreas, unspecified; K55.9 Vascular disorder of intestine, unspecified; N17.9 Acute kidney failure, unspecified; R18.0 Malignant ascites; I27.82 Chronic pulmonary embolism; E87.1 Hypo-osmolality and hyponatremia; R62.7 Adult failure to thrive; Z68.21 Body mass index [BMI] 21.0-21.9, adult; I95.9 Hypotension, unspecified; K74.60 Unspecified cirrhosis of liver; N40.0 Benign prostatic hyperplasia without lower urinary tract symptoms; E87.6 Hypokalemia; E11.649 Type 2 diabetes mellitus with hypoglycemia without coma; E83.39 Other disorders of phosphorus metabolism; Z92.21 Personal history of antineoplastic chemotherapy; Z92.3 Personal history of irradiation; Z87.891 Personal history of nicotine dependence; Z86.010 Personal history of colon polyps; Z96.652 Presence of left artificial knee joint; Z88.0 Allergy status to penicillin; Z88.1 Allergy status to other antibiotic agents; Z79.01 Long term (current) use of anticoagulants; Z79.899 Other long term (current) drug therapy
CPT/HCPCS: 36415; 71045; 74177; 80048; 80053; 81001; 82803; 82945; 82947; 83605; 83615; 83690; 83735; 83880; 84100; 84157; 84484; 85007; 85025; 85027; 86850; 86900; 86901; 86923; 87040; 87077; 87186; 87205; 87493; 87635; 89051; 93005; 94640; 94644; 96361; 96365; 96366; 96367; 96375; 96376; 97162; 99285; C1758; J0610; J0692; J0696; J1100; J2270; P9016; P9047; Q9967